=== PATIENT | female | born 1945 | race Caucasian/White ===

== ENCOUNTER 2016-09-12 14:42 | Emergency (ER) | payer OTHER | END 2016-09-12 14:59 | disposition left against medical advice (07) | LOC: CED 14:42 | DX: R06.02 Shortness of breath (principal); Z98.890 Other specified postprocedural states; Z53.29 Procedure and treatment not carried out because of patient's decision for other reasons ==

== ENCOUNTER 2016-09-12 15:18 | Emergency (ER) | payer OTHER ==
--- NOTE | 2016-09-12 15:51 | EDPHY ---
H & P Stated Complaint: S/P "heart surgery", SOB, cough Time Seen by Provider: 09/12/16 15:50 HPI/ROS: CHIEF COMPLAINT: Productive cough HISTORY OF PRESENT ILLNESS: The patient presents to the emergency department with a productive cough. Her symptoms have been present for 3 days. She reports an associated sore throat but denies fever. The patient is approximately 4 weeks status post CABG. She has been recovering well. She is currently on a daily aspirin. She denies chest pain. She is on chronic oxygen at 1 liter/minute. She has had to titrate this up slightly over the past day. The patient denies asymmetric calf pain or swelling. She denies abdominal pain or additional complaints. REVIEW OF SYSTEMS: A comprehensive 10 point review of systems is otherwise negative aside from elements mentioned in the history of present illness. - Personal History Current Tetanus/Diphtheria Vaccine: Yes Current Tetanus Diphtheria and Acellular Pertussis (TDAP): Yes - Medical/Surgical History Hx Asthma: No Hx Chronic Respiratory Disease: No Hx Diabetes: No Hx Cardiac Disease: No Hx Renal Disease: No Hx Cirrhosis: No Hx Alcoholism: No Hx HIV/AIDS: No Hx Splenectomy or Spleen Trauma: No Other PMH: breast cancer, mastectomy, COPD, cardiac surgery 08/27 - Social History Smoking Status: Former smoker - Physical Exam Exam: General Appearance: Alert, slightly obese, no acute distress Eyes: Pupils equal and round no pallor or injection ENT, Mouth: Mucous membranes moist Respiratory: There are no retractions, crackles at left lung base which clear, sternotomy incision clean dry and intact Cardiovascular: Regular rate and rhythm Gastrointestinal: Abdomen is soft and nontender, no masses, bowel sounds normal Neurological: A&O, normal motor function, normal sensory exam, normal cranial nerves Skin: Warm and dry, no rashes Musculoskeletal: Neck is supple nontender Extremities: symmetrical, full range of motion Constitutional: Initial Vital Signs Heart Rate 98 09/12/16 15:34 Respiratory Rate 20 09/12/16 15:34 Blood Pressure 161/106 H 09/12/16 15:34 O2 Sat (%) 92 09/12/16 15:34 O2 Delivery Mode Nasal Cannula O2 (L/minute) 1 Allergies/Adverse Reactions: adhesive tape Allergy (Verified 08/11/16 07:06) cephalexin monohydrate [From Keflex] Allergy (Verified 08/11/16 07:05) levofloxacin [From Levaquin] Allergy (Verified 08/11/16 07:05) olmesartan Allergy (Verified 08/11/16 07:06) olmesartan medoxomil [From Benicar] Allergy (Verified 08/11/16 12:13) oxycodone HCl [From Percocet] Allergy (Verified 08/11/16 07:05) Zmnhnko-Gef-Jml Reductase Inhibitor Allergy (Verified 08/11/16 12:16) Home Medications: Medication Instructions Recorded Anastrozole [Arimidex 1 mg (*)] 1 mg PO DAILY 08/11/16 Aspirin EC [Aspirin EC 81 mg (*)] 81 mg PO DAILY 08/11/16 Cyanocobalamin [Vitamin B12 (*)] 5,000 mcg PO DAILY 08/11/16 Denosumab [Prolia] 60 mg SQ Q180D 08/11/16 Fluticasone Nasal [Flonase Nasal 1 sprays NASAL DAILY 08/11/16 [place]] Fluticasone/Salmeter 250/50Mcg 1 puffs IH BID 08/11/16 [Advair 250/50 (*)] Omeprazole 40 mg PO DAILY 08/11/16 Tiotropium [place] [Spiriva 5 mcg IH DAILY 08/11/16 Respimat] Venlafaxine HCl [Venlafaxine 37.5 mg PO DAILY 08/11/16 37.5MG (*)] Acetaminophen [Tylenol 325mg (*)] 650 mg PO Q4 PRN #0 tab 08/17/16 Clopidogrel Bisulfate [Plavix (*)] 75 mg PO DAILY #90 tab 08/17/16 Ferrous Sulfate [Ferrous Sulf 325 325 mg PO DAILY #15 tab 08/17/16 MG (*)] Metoprolol Tartrate [Lopressor 25 12.5 mg PO BID #30 tab 08/17/16 mg (*)] traMADol [Ultram 50 mg (*)] 50 mg PO Q6HRS PRN #40 tab 08/17/16 Medical Decision Making - Diagnostics Imaging: Chest x-ray AP lateral: Images reviewed by myself and discussed with radiologist, negative for focal infiltrate. ED Course/Re-evaluation: The patient presents to the ED with a 3 day history of cough. There is no evidence of an obvious pneumonia on her chest x-ray. She is afebrile well- appearing. The patient will be advised to use albuterol for possible bronchitis. She is instructed to return to the ED for the development of fever , worsening respiratory symptoms or other concerns. The patient is given a prescription for albuterol. I re-evaluated the patient at 5:00 p.m.. Her vital signs are stable she is in no acute distress. She is comfortable being discharged home. I have given her usual and customary return precautions. Differential Diagnosis: Differential diagnosis considered includes asthma, bronchitis, pneumonia, heart failure, pneumothorax Departure - Departure Disposition: Home, Routine, Self-Care Clinical Impression: Acute bronchitis Condition: Good Instructions: Acute Bronchitis (ED) Additional Instructions: 1. Please use albuterol up to every 4 hours as needed. 2. Your x-ray demonstrates no evidence of an obvious pneumonia. Please return to the ED for fever, worsening symptoms, difficulty breathing or other concerns.
--- NOTE | 2016-09-12 15:53 | CPEKG ---
Heart Rate: 82 RR Interval: 732 P-R Interval: 188 QRSD Interval: 84 QT Interval: 356 QTC Interval: 416 P [place]: 64 QRS [place]: 66 T Wave [place]: 77 EKG Severity - BORDERLINE ECG - EKG Impression: SINUS RHYTHM EKG Impression: BORDERLINE T ABNORMALITIES, ANT-LAT LEADS Electronically Signed By: Nicolás Gallardo 12-Sep-2016 15:56:40
--- NOTE | 2016-09-12 16:37 | DX ---
Chest, Two Views - September 12, 2016, at 1543 hours History: Shortness of breath, crackles. Comparison: August 24, 2016. Findings: Cardiac silhouette is within normal range. No pneumonia, congestive heart failure, pleura l effusion, or pneumothorax. Fracture median sternotomy wire. Atrial appendage clip. Mediastinal clip s. Slightly tortuous aorta. Right and left axillary and breast clips noted. Pleuroparenchymal scarrin g in the right middle lobe. Mild peribronchial thickening bilaterally. Resolution of previous left pl eural effusion. Impression: 1. Bronchitis. 2. Prior coronary artery bypass. 3. No focal pneumonia or residual pleural effusion.
[2016-09-12 17:01] VITALS: BP 119/86; PULSE 83; RESP 16; TEMP 98.1; O2SAT 99
== END 2016-09-12 17:00 | disposition home or self-care (01) ==
DX: J20.9 Acute bronchitis, unspecified (principal); J44.9 Chronic obstructive pulmonary disease, unspecified; Z85.3 Personal history of malignant neoplasm of breast; Z79.82 Long term (current) use of aspirin

== ENCOUNTER 2016-10-12 05:43 | Observation (INO) | payer OTHER ==
[2016-10-12] MEDS ORDERED: NS 1,000 ML IV ONE (06:00)
[2016-10-12] MEDS ORDERED: VANCOMYCIN PHARMACY TO DOSE MISC ONE (06:00)
[2016-10-12] MEDS ORDERED: LIDOCAINE 1% 5 ML SDV ID PRN (06:00)
[2016-10-12] MEDS ORDERED: VANCOMYCIN 1.25 GM in D5W 250 ML IV ONE (06:00)
[2016-10-12] MEDS ORDERED: BUPIVACAINE/EPI 0.25% 30 ML SDV ONE (07:00)
[2016-10-12 07:02] LABS: % IMMATURE GRANULYOCYTES 0.2 % (0.0-1.1); ABSOLUTE IMMATURE GRANULOCYTES 0.01 10^3/uL (0.00-0.10); ADD DIFF? NO; ADD MORPH? NO; ADD SCAN? NO; ATYPICAL LYMPHOCYTE FLAG 10 (0-99); FRAGMENT RBC FLAG 0 (0-99); HEMATOCRIT 36.3 % (38.0-47.0); HEMOGLOBIN 12.1 g/dL (12.6-16.3); LEFT SHIFT FLG 0 (0-99); LIPEMIA HEMOLYSIS FLAG 80 (0-99); MEAN CELL HEMOGLOBIN 33.5 pg (27.9-34.1); MEAN CELL HEMOGLOBIN CONCENTR. 33.3 g/dL (32.4-36.7); MEAN CELL VOLUME 100.6 fL (81.5-99.8); MEAN PLATELET VOLUME 10.5 fL (8.7-11.7); PLATELET CLUMPS FLAG 0 (0-99); PLATELET COUNT 154 10^3/uL (150-400); RED BLOOD CELL COUNT 3.61 10^6/uL (4.18-5.33); RED CELL DISTRIBUTION WIDTH 14.8 % (11.5-15.2)
[2016-10-12] MEDS ORDERED: SKIN ADHESIVE (DERMABOND) 1 EACH TP ONE (07:05)
[2016-10-12] MEDS ORDERED: MIDAZOLAM 2 MG/2 ML VIAL ONE (07:10)
[2016-10-12] MEDS ORDERED: DEXAMETHASONE 4 MG/ML VIAL ONE (07:10)
[2016-10-12] MEDS ORDERED: PROPOFOL 200 MG/20 ML VIAL ONE (07:11)
[2016-10-12] MEDS ORDERED: LIDOCAINE 2% 5 ML SDV ONE (07:11)
[2016-10-12] MEDS ORDERED: fentaNYL 100 MCG/2 ML INJ ONE ×2 (07:11→09:30)
[2016-10-12] MEDS ORDERED: ONDANSETRON 4 MG/2 ML VIAL ONE (07:11)
[2016-10-12] MEDS ORDERED: KETOROLAC 30 MG/1 ML SDV ONE (07:11)
[2016-10-12] MEDS ORDERED: VANCOMYCIN 1 GM/NS 250 ML BAG IV ONE (07:14)
[2016-10-12 07:19] LABS: ANION GAP 8 mEq/L (8-16); CARBON DIOXIDE 26 mEq/l (22-31); CHLORIDE 110 mEq/L (97-110); CREATININE 0.9 mg/dL (0.6-1.0); GLOMERULAR FILTRATION RATE > 60; GLUCOSE 112 mg/dL (70-100); POTASSIUM 4.9 mEq/L (3.5-5.2); SODIUM 144 mEq/L (134-144)
[2016-10-12] MEDS ORDERED: epHEDrine SULFATE 10 MG/ML SYR ONE ×2 (08:09)
[2016-10-12] MEDS ORDERED: PHENYLEPHRINE HCL 100 MCG/ML SYR ONE (08:15)
[2016-10-12] MEDS ORDERED: ONDANSETRON 4 MG/2 ML VIAL IVP PRN (09:08)
[2016-10-12] MEDS ORDERED: LACTULOSE 20 GM/30 ML UDCUP PO PRN (09:08)
[2016-10-12] MEDS ORDERED: POLYETHYLENE GLYCOL 3350 17 GM PKT PO PRN (09:08)
[2016-10-12] MEDS ORDERED: SENNOSIDES/DOCUSATE SODIUM TAB PO PRN (09:08)
[2016-10-12] MEDS ORDERED: MAGNESIUM HYDROXIDE 30 ML UDCUP PO PRN (09:08)
[2016-10-12] MEDS ORDERED: ACETAMINOPHEN 325 MG TAB PO PRN ×2 (09:08→13:17)
[2016-10-12] MEDS ORDERED: BISACODYL 10 MG SUPP PR PRN (09:08)
[2016-10-12] MEDS ORDERED: KETOROLAC 15 MG/1 ML SDV IVP PRN (09:15)
[2016-10-12] MEDS ORDERED: ALBUTEROL 3 ML DEYVIAL IH PRN (09:18)
[2016-10-12] MEDS ORDERED: HYDROmorphONE/DILAUDID 1 MG/ML SYR ONE (10:20)
[2016-10-12] MEDS: traMADol 50 MG TAB PO PRN ×3 (13:14→22:13)
[2016-10-12] MEDS ORDERED: NON-FORMULARY NEW DRUG (Albuterol 2 PUFFS) IH PRN (13:17)
[2016-10-12] MEDS ORDERED: ALBUTEROL 60 PUFFS/8 GM MDI IH PRN (13:27)
[2016-10-12] MEDS: METOPROLOL TARTRATE 25 MG TAB PO SCH (21:04)
[2016-10-12] MEDS: FLUTICASONE/SALMETER 250/50MCG DISKUS IH SCH (21:08)
[2016-10-13 05:12] LABS: % IMMATURE GRANULYOCYTES 0.3 % (0.0-1.1); ABSOLUTE IMMATURE GRANULOCYTES 0.02 10^3/uL (0.00-0.10); ADD DIFF? NO; ADD MORPH? NO; ADD SCAN? NO; ATYPICAL LYMPHOCYTE FLAG 0 (0-99); FRAGMENT RBC FLAG 0 (0-99); HEMATOCRIT 32.7 % (38.0-47.0); HEMOGLOBIN 10.5 g/dL (12.6-16.3); LEFT SHIFT FLG 0 (0-99); LIPEMIA HEMOLYSIS FLAG 80 (0-99); MEAN CELL HEMOGLOBIN 32.6 pg (27.9-34.1); MEAN CELL HEMOGLOBIN CONCENTR. 32.1 g/dL (32.4-36.7); MEAN CELL VOLUME 101.6 fL (81.5-99.8); MEAN PLATELET VOLUME 11.1 fL (8.7-11.7); PLATELET CLUMPS FLAG 10 (0-99); PLATELET COUNT 159 10^3/uL (150-400); RED BLOOD CELL COUNT 3.22 10^6/uL (4.18-5.33)
[2016-10-13 07:51] VITALS: TEMP 98
[2016-10-13] MEDS: FLUTICASONE/SALMETER 250/50MCG DISKUS IH SCH (08:42)
[2016-10-13] MEDS ORDERED: FLUTICASONE NASAL 120 SPRAYS/16 GM MDI EACHNARE SCH (09:00)
[2016-10-13] MEDS ORDERED: VENLAFAXINE HCL 37.5 MG TAB PO SCH (09:00)
[2016-10-13] MEDS ORDERED: TIOTROPIUM BROMIDE 5 MCG IH SCH (09:00)
[2016-10-13] MEDS ORDERED: PANTOPRAZOLE SODIUM 40 MG TAB PO SCH (09:00)
[2016-10-13] MEDS ORDERED: amLODIPine BESYLATE 5 MG TAB PO SCH (09:00)
[2016-10-13] MEDS ORDERED: TIOTROPIUM INHALER 18 MCG/DOSE 5 DOSE/MDI IH SCH (09:00)
[2016-10-13] MEDS ORDERED: ASPIRIN EC 81 MG TAB PO SCH (09:00)
[2016-10-13] MEDS ORDERED: ANASTROZOLE 1 MG TAB PO SCH (09:00)
[2016-10-13] MEDS ORDERED: CYANO/VITAMIN B12 1000 MCG TAB PO SCH (09:00)
[2016-10-13] MEDS ORDERED: FUROSEMIDE 20 MG TAB PO SCH (09:00)
[2016-10-13] MEDS: traMADol 50 MG TAB PO PRN ×2 (09:06→13:17)
[2016-10-13] MEDS: METOPROLOL TARTRATE 25 MG TAB PO SCH (09:15)
--- NOTE | 2016-10-13 10:00 | SOAPPROG ---
SOAP Progress Note Assessment/Plan: Assessment: POD#1 Upper sternal wound exploration with removal of fractured sternal wire and ZipFix ties x 2, debridement of manubrial malunion, mobilization of bilateral pecs into defect and closure of wound. Upper sternal soft tissue irritation and inflammation with known wire fx - No sinus tracts or evidence infection. Fibrous nonunion d/t fractured wire. Localized hardware removed and wound successfully closed. Stable CAD - 2 mo s/p CABG4. COPD - stable. MONIQUE on CPAP - stable. Plan: Ok for discharge home with drain. Reinstitute strict sternal precautions. Close clinic followup. 10/13/16 07:54 Subjective: Feels well. Satisfactory analgesia. Comfortable managing drain as did same post mastectomy. Objective: Vital Signs Temp Pulse Resp BP Pulse Ox 36.7 C 87 12 107/65 97 10/13/16 07:50 10/13/16 08:44 10/13/16 08:44 10/13/16 07:50 10/13/16 08:44 Microbiology 10/12/16 07:50 Gram Stain - Final Other - Eswab Laboratory Results 10/13/16 03:25 10/12/16 07:52 10/12/16 10/13/16 10/14/16 05:59 05:59 05:59 Intake Total 2235 Output Total 635 Balance 1600 Cardioresp status stable. Flap drainage thin serosang. Output 50cc postop, 70cc overnoc. Intraop cx NOS. Labs ok. Physical Exam - Physical Exam General Appearance: alert, no apparent distress Respiratory: lungs clear Cardiac/Chest: regular rate, rhythm, other (Sternal dressing clean and dry. Incision visualized - small hematoma at notch, edges well approximated, periwound soft, flat. 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
[2016-10-13 11:42] VITALS: BP 102/63; PULSE 88; RESP 16; O2SAT 91
== END 2016-10-13 14:48 | disposition home or self-care (01) ==
LOC: INTOOBSV 05:43 → F3N 05:43 → F2W 10:40
PROVIDERS: ADMIT Thoracic Surgery (Cardiothoracic Vascular Surgery); ATTEND Thoracic Surgery (Cardiothoracic Vascular Surgery)
PROC: 0PP004Z Removal of Internal Fixation Device from Sternum, Open Approach (ICD-10-PCS; principal; 2016-10-12 07:15)
PROC: 0PB00ZZ Excision of Sternum, Open Approach (ICD-10-PCS; principal; 2016-10-12 07:15)
PROC: 0KXJ0ZZ Transfer Left Thorax Muscle, Open Approach (ICD-10-PCS; principal; 2016-10-12 07:15)
PROC: 0KXH0ZZ Transfer Right Thorax Muscle, Open Approach (ICD-10-PCS; principal; 2016-10-12 07:15)
DX: T84.218A Breakdown (mechanical) of internal fixation device of other bones, initial encounter (principal); T84.69XA Infection and inflammatory reaction due to internal fixation device of other site, initial encounter; I25.10 Atherosclerotic heart disease of native coronary artery without angina pectoris; Z95.1 Presence of aortocoronary bypass graft; J44.9 Chronic obstructive pulmonary disease, unspecified; G47.33 Obstructive sleep apnea (adult) (pediatric)
CPT/HCPCS: 11044; 15734; 20680; J1100; J1170; J2250; J2370; J2405; J2704; J3010; J3370; J1885

== ENCOUNTER 2016-10-26 16:58 | Inpatient (IN) | payer OTHER ==
[2016-10-26] MEDS ORDERED: MAGNESIUM HYDROXIDE 30 ML UDCUP PO PRN (18:43)
[2016-10-26] MEDS ORDERED: HYDROCODONE/APAP 5/325 TAB PO PRN (18:43)
[2016-10-26] MEDS ORDERED: BISACODYL 10 MG SUPP PR PRN (18:43)
[2016-10-26] MEDS ORDERED: LACTULOSE 20 GM/30 ML UDCUP PO PRN (18:43)
[2016-10-26] MEDS ORDERED: POLYETHYLENE GLYCOL 3350 17 GM PKT PO PRN (18:43)
[2016-10-26] MEDS ORDERED: ACETAMINOPHEN 325 MG TAB PO PRN (18:43)
--- NOTE | 2016-10-26 19:32 | PDGENHP ---
History and Physical - Chief Complaint increasing sternal redness and tenderness x 48hrs - History of Present Illness 70 yo female admitted directly from CV surgery clinic with cellulitis and expressible purulent drainage from an upper sternal wound that was revised 2 wks ago. Describes flu-like fatigue, achiness, and chilled feeling last couple of days, associated with spreading redness, fullness and tenderness along upper chest near deltopectoral grooves. Onset of symptoms within 2 days of drain hole sealing. No skin edge disruption or spontaneous drainage from central incision. No documented fever. No new bony popping/clicking. No mid/distal sternal ache. Adequate pain control with tylenol and tramadol. History Information - Allergies/Home Medication List Allergies/Adverse Reactions: adhesive tape Allergy (Verified 08/11/16 07:06) cephalexin monohydrate [From Keflex] Allergy (Verified 10/11/16 18:01) Rash levofloxacin [From Levaquin] Allergy (Verified 10/11/16 18:01) Rash olmesartan Allergy (Verified 10/11/16 18:01) Rash olmesartan medoxomil [From Benicar] Allergy (Verified 10/11/16 18:01) Rash oxycodone HCl [From Percocet] Allergy (Verified 10/11/16 18:01) Vomiting Ephqkql-Ixb-Mjq Reductase Inhibitor Allergy (Verified 10/11/16 18:01) Other-Enter Comments Home Medications: Anastrozole [Arimidex 1 mg (*)] 1 mg PO DAILY 08/11/16 [Last Taken 10/26/16] Aspirin EC [Aspirin EC 81 mg (*)] 81 mg PO DAILY 08/11/16 [Last Taken 10/26/16] Cyanocobalamin [Vitamin B12 (*)] 5,000 mcg PO DAILY 08/11/16 [Last Taken ] Denosumab [Prolia] 60 mg SQ Q180D 08/11/16 [Last Taken 07/28/16] Fluticasone Nasal [Flonase Nasal [place]] 1 sprays NASAL DAILY 08/11/16 [Last Taken 10/24/16] Fluticasone/Salmeter 250/50Mcg [Advair 250/50 (*)] 1 puffs IH BID 08/11/16 [ Last Taken 10/26/16] Omeprazole 40 mg PO DAILY 08/11/16 [Last Taken 10/26/16] Tiotropium [place] [Spiriva Respimat] 5 mcg IH DAILY 08/11/16 [Last Taken ] Amlodipine Besylate 5 mg PO DAILY 10/12/16 [Last Taken 10/26/16] Furosemide [Lasix 20 MG (*)] 20 mg PO MOWEFR@09 10/12/16 [Last Taken 10/25/16] Alirocumab [Praluent Syringe] 75 mg SQ Q14D 10/26/16 [Last Taken 10/25/16] Venlafaxine HCl [Venlafaxine HCl ER] 37.5 mg PO DAILY 10/26/16 [Last Taken 10/25] I have personally reviewed and updated: medical history, social history, surgical history - Past Medical History coronary artery disease, cancer (breast, s/p chemo and left sided XRT), COPD ( 40 pk yr smoking hx; O2 dependent since CABG), hypertension, hyperlipidemia, peripheral artery disease (4 cm AAA, mild-mod carotid atherosclerosis) Additional medical history: MONIQUE, on CPAP. LV diastolic dysfunction. pHTN - Surgical History Reports: coronary bypass surgery (x4, CANTRELL-LAD, SV-D1, SV-PLC, SV-PDA) w prophylactic AtriClip exclusion of the left atrial appendage 08/12/16), mastectomy (bilateral with failed augmentation/implants) Additional surgical history: -10/12/15 upper sternal exploration, removal of fractured wire and ZipFix ties x2, debridement of manubrial fibrous nonunion, mobilization of bilateral pecs into defect, closure of wound. No evidence infection. Intraop cxs rare mixed cutaneous marie; no staph, beta strep or pseudomonas. Not placed on antibiotics. -remote rt nephrectomy - Social History Smoking Status: Former smoker Review of Systems Constitutional: Reports: chills, malaise, weakness EENMT: Reports: no symptoms Cardiac: Reports: no symptoms Respiratory: Reports: shortness of breath (with mild exertion) Gastrointestinal: Reports: no symptoms Genitourinary: Reports: no symptoms Muscolosketal: Reports: muscle pain (generalized) Physical Exam Temp Pulse Resp BP Pulse Ox 37.1 C 129 H 20 131/82 H 91 L 10/26/16 18:20 10/26/16 18:20 10/26/16 18:20 10/26/16 18:20 10/26/16 18:20 O2 (L/minute) 2 Constitutional: other (pale) Eyes: anicteric sclera Ears, Nose, Mouth, Throat: moist mucous membranes Cardiovascular: regular rate and rhythym, no murmur, rub, or gallop, other (no visible peripheral edema) Respiratory: no respiratory distress (at rest), clear to auscultation (grossly) Gastrointestinal: normoactive bowel sounds, soft, non-tender abdomen Skin: warm, other (Upper sternal incision CDI with 1/4 cm pustular appearance to central incision. Widespread cellulitis to midclavicular line. Exquisitely TTP along upper pecs. Rt sided parasternal drain site dry, no active drainage.) Musculoskeletal: other (symmetric tone and movement) Neurologic: AAOx3 Psychiatric: interacting appropriately Lab Data & Imaging Review 10/26/16 19:45 10/26/16 19:45 Assessment & Plan Assessment: Surgical site cellulitis. Devascularized subcutaneous tissue w probable compromise of pectoralis flaps. Possible osteomyelitis. Plan: Routine labs, as well as blood cultures. Local I&D +/- culturing of central wound. Empiric Vancomycin pending further results. Re-exploration of entire wound in OR tomorrow. PICC and wound vac if appropriate. Plastics consult for additional debridement, defect management.
[2016-10-26] MEDS: traMADol 50 MG TAB PO PRN ×2 (19:53→22:59)
[2016-10-26] MEDS ORDERED: VANCOMYCIN HCL/NORMAL SALINE 250 ML IV ONE (20:00)
[2016-10-26 20:12] LABS: % IMMATURE GRANULYOCYTES 1.2 % (0.0-1.1); ABSOLUTE IMMATURE GRANULOCYTES 0.18 10^3/uL (0.00-0.10); ADD DIFF? NO; ADD MORPH? NO; ADD SCAN? NO; ATYPICAL LYMPHOCYTE FLAG 0 (0-99); FRAGMENT RBC FLAG 0 (0-99); HEMATOCRIT 35.2 % (38.0-47.0); HEMOGLOBIN 11.8 g/dL (12.6-16.3); LEFT SHIFT FLG 10 (0-99); LIPEMIA HEMOLYSIS FLAG 80 (0-99); MEAN CELL HEMOGLOBIN 33.3 pg (27.9-34.1); MEAN CELL HEMOGLOBIN CONCENTR. 33.5 g/dL (32.4-36.7); MEAN CELL VOLUME 99.4 fL (81.5-99.8); MEAN PLATELET VOLUME 10.4 fL (8.7-11.7); PLATELET CLUMPS FLAG 20 (0-99); PLATELET COUNT 262 10^3/uL (150-400); RED BLOOD CELL COUNT 3.54 10^6/uL (4.18-5.33); RED CELL DISTRIBUTION WIDTH 14.9 % (11.5-15.2)
[2016-10-26] MEDS ORDERED: ALBUTEROL 60 PUFFS/8 GM MDI IH PRN (20:30)
[2016-10-26 20:37] LABS: ANION GAP 14 mEq/L (8-16); CALCIUM 8.9 mg/dL (8.5-10.4); CARBON DIOXIDE 23 mEq/l (22-31); CHLORIDE 97 mEq/L (97-110); CREATININE 1.8 mg/dL (0.6-1.0); GLOMERULAR FILTRATION RATE 28; GLUCOSE 110 mg/dL (70-100); POTASSIUM 4.4 mEq/L (3.5-5.2); SODIUM 134 mEq/L (134-144)
[2016-10-26] MEDS: FLUTICASONE/SALMETER 250/50MCG DISKUS IH SCH (20:50)
[2016-10-26] MEDS: HEPARIN 5,000 UNIT/0.5 ML SYR SC SCH (20:53)
[2016-10-26] MEDS: METOPROLOL TARTRATE 25 MG TAB PO SCH (20:54)
[2016-10-26] MEDS: SENNOSIDES/DOCUSATE SODIUM TAB PO SCH (20:57)
[2016-10-26] MEDS: 1/2 NS 1,000 ML IV SCH (22:59)
[2016-10-27] MEDS: traMADol 50 MG TAB PO PRN ×4 (04:19→22:05)
[2016-10-27 05:15] LABS: ANION GAP 11 mEq/L (8-16); CALCIUM 8.6 mg/dL (8.5-10.4); CARBON DIOXIDE 22 mEq/l (22-31); CHLORIDE 99 mEq/L (97-110); CREATININE 1.7 mg/dL (0.6-1.0); GLOMERULAR FILTRATION RATE 30; GLUCOSE 97 mg/dL (70-100); POTASSIUM 3.8 mEq/L (3.5-5.2); SODIUM 132 mEq/L (134-144)
[2016-10-27] MEDS: HEPARIN 5,000 UNIT/0.5 ML SYR SC SCH ×3 (06:25→22:07)
[2016-10-27] MEDS: METOPROLOL TARTRATE 25 MG TAB PO SCH ×2 (07:42→20:05)
[2016-10-27] MEDS ORDERED: ALTEPLASE 2 MG VIAL IVP PRN (09:23)
[2016-10-27] MEDS ORDERED: VANCOMYCIN HCL/NORMAL SALINE 250 ML IV SCH (10:30)
--- NOTE | 2016-10-27 10:30 | SOAPPROG ---
SOAP Progress Note Assessment/Plan: Assessment: Upper sternal cellulitis - Associated with subcutaneous abscess. Active drainage promoted by local I&D. Gram stain 2+GPC. Precautionary blood cxs sent and pending. Empiric IV Vanco pending more definitive intraop cultures. CT chest to better define extent of needed revision. Removal of bilateral breast implants desired. Plastics consult planned. ASTRID - Baseline Cr Admit Cr 0.8-1.0. Admit Cr 1.8, likely prerenal (relative dehydration and hypotension) secondary to infection. IVF started. Diuretics held. Plan: Noncontrast chest CT. PICC. Keep NPO pending possible OR this afternoon. IV vanco dosing per pharm. Cont IVF at 100ml/h. Await plastics opinion. 10/27/16 09:24 Subjective: Doing ok. Maintaining good spirits. "Much less tender" since "pressure" released by I&D. Objective: Vital Signs Temp Pulse Resp BP Pulse Ox 37.9 C 106 H 18 100/65 94 10/27/16 07:32 10/27/16 07:32 10/27/16 07:32 10/27/16 07:32 10/27/16 07:32 Microbiology 10/26/16 20:00 Gram Stain - Final Chest - Swab Laboratory Results 10/26/16 19:45 10/27/16 03:44 10/26/16 10/27/16 10/28/16 05:59 05:59 05:59 Intake Total 300 Balance 300 Resting tachycardia w/out overt hypotension, likely reactive. Low grade temp this am. Purosanguinous drainage from opening in chest incision. Markedly less erythema and induration. Gram stain of cx +GPC. Blood cxs pending. Physical Exam - Physical Exam General Appearance: alert, no apparent distress Respiratory: lungs clear Cardiac/Chest: tachycardia, other (Significant reduction in chest cellulitis. Brown purosanguinous drainage from 2cm central opening. 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
[2016-10-27] MEDS: 1/2 NS 1,000 ML IV SCH ×2 (10:52→20:14)
[2016-10-27] MEDS: SENNOSIDES/DOCUSATE SODIUM TAB PO SCH ×2 (10:53→20:06)
[2016-10-27] MEDS: TIOTROPIUM BROMIDE 5 MCG IH SCH (10:54)
[2016-10-27] MEDS: FLUTICASONE/SALMETER 250/50MCG DISKUS IH SCH ×2 (10:54→22:00)
--- NOTE | 2016-10-27 18:15 | SOAPPROG ---
SOAP Progress Note Assessment/Plan: Assessment: Sternal wound infection with likely involvement of one or both reconstructive breast implants Plan: Agree with operative exploration and debridement, continued iv abx, and implant removal. Will plan definitive coverage when infection is under control and the wound is stable. Full note dictated. 10/27/16 18:12 Subjective: sternal wound infection symptomatically better after wound opening Objective: Vital Signs Temp Pulse Resp BP Pulse Ox 36.6 C 127 H 20 107/76 95 10/27/16 16:48 10/27/16 16:48 10/27/16 16:48 10/27/16 16:48 10/27/16 16:48 Microbiology 10/26/16 20:30 Blood Panel (PCR) - Final Blood S.aureus Methicillin Suscept. 10/26/16 20:00 Gram Stain - Final Chest - Swab Laboratory Results 10/26/16 19:45 10/27/16 03:44 10/26/16 10/27/16 10/28/16 05:59 05:59 05:59 Intake Total 300 1880 Balance 300 1880 open superior sternotomy wound with purulent drainage ICD10 Worksheet Patient Problems: Problems Problem Status Onset ASTRID (acute kidney injury) Acute Cellulitis Acute FH: CABG (coronary artery bypass surgery) Chronic S/P CABG x 4 Chronic 08/12/16 COPD (chronic obstructive pulmonary disease) Chronic History of nephrectomy, unilateral Chronic History of mastectomy Chronic Breast cancer Chronic Hypertension Chronic Hyperlipemia Chronic CAD, multiple vessel Chronic Carotid artery disease Chronic MONIQUE on CPAP 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
--- NOTE | 2016-10-27 19:09 | GCON ---
[f rep st] CONSULTATION PLASTIC SURGERY CONSULTATION NOTE DATE OF CONSULTATION: 10/27/2016 REFERRING PHYSICIAN: Joe Villaseñor DO REQUESTING SERVICE: Cardiovascular Surgery. CONSULTING SERVICE: Plastic Surgery. REASON FOR CONSULTATION: Sternal dehiscence with infection, status post CABG. CLINICAL HISTORY: I spoke with the patient at great length this evening. She is a delightful 70-ye ar-old female admitted yesterday from the [facility] with cellulitis and abscess in the upper portion of the median sternotomy incision. She has a history of 4-vessel CABG in late Novemb er. She had the wound revised several weeks ago and developed redness and constitutional symptoms w ithin the last 3-4 days. She was admitted yesterday and was begun empirically on IV antibiotics. S he had a CT scan which revealed involvement of the mediastinum with possible involvement and contami nation of her breast implants. The implants were placed as part of reconstruction following bilater al mastectomy in 2011. She has never done well with the implants. She had partial mobilization of pectoralis major muscle during sternal revision several weeks ago. There is now likely involvement of the implant space with the sternal infection. Plastic Surgery was consulted to assist in wound c are and wound closure once the infection is under control. PAST MEDICAL HISTORY: Significant for significant coronary artery disease, oxygen-dependent COPD, h ypertension, peripheral artery disease, high cholesterol, and obstructive sleep apnea. She has had multiple previous surgeries, including bilateral mastectomy with implant reconstruction, 4-vessel CA BG as above, unilateral nephrectomy, appendectomy, hysterectomy. SOCIAL HISTORY: She has a 40 pack-year history of smoking, but quit in 2011. PHYSICAL EXAMINATION: GENERAL: She is a mildly acute-appearing, moderately obese white female, res ting comfortably in bed. She has oxygen in place and a dressing over an open, draining superior annie rnal wound. SKIN: There is erythema in an 8 cm x 10 cm distribution with cloudy drainage from the superior aspect of the incision. There are implants in place bilaterally with transverse mastectomy incisions. The remainder of the sternotomy incision is intact. No drains are in place. There is tenderness to palpation of the chest wall. LABORATORY DATA: Admission lab data revealed an elevated white count of 15,000. IMPRESSION: The patient has an open sternal defect with a sternal malunion with abscess and likely spread to one or both breast implant capsules. PLAN: The patient will need to have her wound widely opened and explored with debridement of the st ernal edges back to healthy, bleeding bone. She will likely need removal of both implants with seri al dressing changes in conjunction with IV antibiotics to control the infection. Once the tissues a re healthy and granulating and the infection is under control, I would plan to reconstruct the defec t with either a right vertical rectus abdominis myocutaneous flap or potentially use bilateral pecto ralis major flaps, if they are intact and there is no vascular compromise. I do not anticipate that the wound will be ready for closure before the middle of next week. I will be available to discuss the case with Dr. Villaseñor and will try to obtain intraoperative photographs of the current wound defe ct at the time of debridement. Thank you for the consultation and the ability to help in this kind woman's care. /[id number]/MODL
[2016-10-27] MEDS: VANCOMYCIN 750 MG in D5W 150 ML IV SCH (20:07)
[2016-10-27] MEDS: FLUTICASONE NASAL 120 SPRAYS/16 GM MDI EACHNARE SCH (22:08)
[2016-10-28] MEDS: 1/2 NS 1,000 ML IV SCH (06:05)
[2016-10-28 06:11] LABS: % IMMATURE GRANULYOCYTES 0.5 % (0.0-1.1); ABSOLUTE IMMATURE GRANULOCYTES 0.03 10^3/uL (0.00-0.10); ADD DIFF? NO; ADD MORPH? NO; ADD SCAN? NO; ATYPICAL LYMPHOCYTE FLAG 0 (0-99); FRAGMENT RBC FLAG 0 (0-99); HEMATOCRIT 27.2 % (38.0-47.0); HEMOGLOBIN 8.9 g/dL (12.6-16.3); LEFT SHIFT FLG 0 (0-99); LIPEMIA HEMOLYSIS FLAG 80 (0-99); MEAN CELL HEMOGLOBIN 33.1 pg (27.9-34.1); MEAN CELL HEMOGLOBIN CONCENTR. 32.7 g/dL (32.4-36.7); MEAN CELL VOLUME 101.1 fL (81.5-99.8); MEAN PLATELET VOLUME 10.2 fL (8.7-11.7); PLATELET CLUMPS FLAG 0 (0-99); PLATELET COUNT 178 10^3/uL (150-400); RED BLOOD CELL COUNT 2.69 10^6/uL (4.18-5.33); RED CELL DISTRIBUTION WIDTH 14.9 % (11.5-15.2)
[2016-10-28 06:43] LABS: ALANINE AMINOTRANSFERASE 59 IU/L (9-52); ALBUMIN 2.3 g/dL (3.5-5.0); ALKALINE PHOSPHATASE 352 IU/L (38-126); ANION GAP 8 mEq/L (8-16); ASPARTATE AMINOTRANSFERASE 75 IU/L (14-46); CALCIUM 7.8 mg/dL (8.5-10.4); CARBON DIOXIDE 22 mEq/l (22-31); CHLORIDE 101 mEq/L (97-110); CREATININE 1.8 mg/dL (0.6-1.0); GLOMERULAR FILTRATION RATE 28; GLUCOSE 70 mg/dL (70-100); POTASSIUM 3.8 mEq/L (3.5-5.2); SODIUM 131 mEq/L (134-144); TOTAL PROTEIN 4.7 g/dL (6.3-8.2)
[2016-10-28] MEDS: VENLAFAXINE XR 37.5 MG CAP PO SCH (07:28)
[2016-10-28] MEDS: traMADol 50 MG TAB PO PRN ×4 (07:28→22:26)
[2016-10-28] MEDS: METOPROLOL TARTRATE 25 MG TAB PO SCH ×2 (07:28→22:25)
[2016-10-28] MEDS: NS 1,000 ML IV SCH ×2 (07:37→20:48)
[2016-10-28] MEDS: HEPARIN 5,000 UNIT/0.5 ML SYR SC SCH ×3 (08:15→21:49)
[2016-10-28] MEDS: ANASTROZOLE 1 MG TAB PO SCH (08:16)
[2016-10-28] MEDS: ASPIRIN EC 81 MG TAB PO SCH (08:16)
[2016-10-28] MEDS: SENNOSIDES/DOCUSATE SODIUM TAB PO SCH ×2 (08:16→22:27)
[2016-10-28] MEDS: FLUTICASONE/SALMETER 250/50MCG DISKUS IH SCH ×2 (08:17→20:32)
[2016-10-28] MEDS: FLUTICASONE NASAL 120 SPRAYS/16 GM MDI EACHNARE SCH (08:17)
[2016-10-28] MEDS: TIOTROPIUM BROMIDE 5 MCG IH SCH ×2 (08:17→20:32)
[2016-10-28] MEDS ORDERED: CYANO/VITAMIN B12 1000 MCG TAB PO SCH (09:00)
[2016-10-28] MEDS ORDERED: PANTOPRAZOLE SODIUM 40 MG TAB PO SCH (09:00)
--- NOTE | 2016-10-28 09:40 | SOAPPROG ---
SOAP Progress Note Assessment/Plan: Upper sternal cellulitis - Associated with subcutaneous abscess. Active drainage promoted by local I&D. MSSA as per micro. Continue Vanco. Plastics consult appreciated and plan is to reconstruct after resolution of infection. Dr. Villaseñor to debride wound and remove breast implants 10/29. ASTRID - Baseline Cr Admit Cr 0.8-1.0. Admit Cr 1.8, likely prerenal (relative dehydration and hypotension) secondary to infection. IVF started. Diuretics held. Subjective: Still c/o chest pain. Wound continues to drain. Objective: Vital Signs Temp Pulse Resp BP Pulse Ox 36.7 C 83 18 105/60 99 10/28/16 08:40 10/28/16 08:40 10/28/16 08:40 10/28/16 08:40 10/28/16 08:40 Microbiology 10/26/16 20:00 Gram Stain - Final Chest - Swab 10/26/16 20:30 Blood Panel (PCR) - Final Blood S.aureus Methicillin Suscept. Laboratory Results 10/28/16 06:00 10/28/16 06:00 10/27/16 10/28/16 10/29/16 05:59 05:59 05:59 Intake Total 300 3380 Balance 300 3380 Physical Exam - Physical Exam General Appearance: WD/WN, alert, no apparent distress EENT: No scleral icterus (R), No scleral icterus (L) Neck: normal inspection Respiratory: No respiratory distress Cardiac/Chest: regular rate, rhythm Abdomen: non-tender, soft, No distended Skin: other (Chest erythema with purulent drainage from mid-portion of wound. TTP. 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
[2016-10-28] MEDS: ONDANSETRON 4 MG/2 ML VIAL IVP PRN (16:05)
[2016-10-28] MEDS: VANCOMYCIN 750 MG in D5W 150 ML IV SCH (20:47)
[2016-10-29] MEDS: HEPARIN 5,000 UNIT/0.5 ML SYR SC SCH ×3 (05:33→20:32)
[2016-10-29 05:59] LABS: HEMATOCRIT 26.1 % (38.0-47.0); HEMOGLOBIN 8.4 g/dL (12.6-16.3); MEAN CELL HEMOGLOBIN 32.3 pg (27.9-34.1); MEAN CELL HEMOGLOBIN CONCENTR. 32.2 g/dL (32.4-36.7); MEAN CELL VOLUME 100.4 fL (81.5-99.8); RED BLOOD CELL COUNT 2.6 10^6/uL (4.18-5.33)
[2016-10-29 07:35] LABS: ANION GAP 8 mEq/L (8-16); CALCIUM 8.5 mg/dL (8.5-10.4); CARBON DIOXIDE 22 mEq/l (22-31); CHLORIDE 104 mEq/L (97-110); CREATININE 1.8 mg/dL (0.6-1.0); GLOMERULAR FILTRATION RATE 28; GLUCOSE 89 mg/dL (70-100); POTASSIUM 4.2 mEq/L (3.5-5.2); SODIUM 134 mEq/L (134-144)
[2016-10-29] MEDS: METOPROLOL TARTRATE 25 MG TAB PO SCH ×2 (08:09→20:30)
[2016-10-29] MEDS: CYANO/VITAMIN B12 1000 MCG TAB PO SCH (08:11)
[2016-10-29] MEDS: ANASTROZOLE 1 MG TAB PO SCH (08:11)
[2016-10-29] MEDS: traMADol 50 MG TAB PO PRN ×2 (08:13→20:31)
[2016-10-29] MEDS: OMEPRAZOLE 40MG PO SCH (08:14)
[2016-10-29] MEDS: ASPIRIN EC 81 MG TAB PO SCH (08:14)
[2016-10-29] MEDS: SENNOSIDES/DOCUSATE SODIUM TAB PO SCH ×2 (08:17→20:31)
[2016-10-29] MEDS: NS 1,000 ML IV SCH (08:28)
[2016-10-29] MEDS: VENLAFAXINE XR 37.5 MG CAP PO SCH (08:48)
[2016-10-29] MEDS ORDERED: FUROSEMIDE 20 MG TAB PO SCH (09:00)
[2016-10-29] MEDS: FLUTICASONE/SALMETER 250/50MCG DISKUS IH SCH ×2 (09:08→19:42)
[2016-10-29] MEDS: TIOTROPIUM BROMIDE 5 MCG IH SCH (09:08)
[2016-10-29] MEDS: FLUTICASONE NASAL 120 SPRAYS/16 GM MDI EACHNARE SCH (10:41)
[2016-10-29] MEDS ORDERED: MIDAZOLAM 2 MG/2 ML VIAL ONE (13:21)
[2016-10-29] MEDS ORDERED: PROPOFOL/EMULSION 500 MG/50 ML BOTTLE IV ONE (13:25)
[2016-10-29] MEDS ORDERED: fentaNYL 100 MCG/2 ML INJ ONE (13:26)
[2016-10-29] MEDS ORDERED: VANCOMYCIN 1 GM in NS 250 ML IV ONE (14:00)
[2016-10-29] MEDS ORDERED: LIDOCAINE 1% 30 ML SDV ONE (14:13)
[2016-10-29] MEDS ORDERED: BUPIVACAINE/EPI 0.25% 30 ML SDV ONE (14:14)
[2016-10-30] MEDS: traMADol 50 MG TAB PO PRN ×3 (02:45→22:42)
[2016-10-30] MEDS: HEPARIN 5,000 UNIT/0.5 ML SYR SC SCH ×3 (06:06→22:42)
[2016-10-30 06:39] LABS: HEMATOCRIT 24.8 % (38.0-47.0); HEMOGLOBIN 7.8 g/dL (12.6-16.3); MEAN CELL HEMOGLOBIN 32.5 pg (27.9-34.1); MEAN CELL HEMOGLOBIN CONCENTR. 31.5 g/dL (32.4-36.7); MEAN CELL VOLUME 103.3 fL (81.5-99.8); RED BLOOD CELL COUNT 2.4 10^6/uL (4.18-5.33)
[2016-10-30 06:57] LABS: ANION GAP 8 mEq/L (8-16); CALCIUM 8.4 mg/dL (8.5-10.4); CARBON DIOXIDE 20 mEq/l (22-31); CHLORIDE 108 mEq/L (97-110); CREATININE 1.7 mg/dL (0.6-1.0); GLOMERULAR FILTRATION RATE 30; GLUCOSE 86 mg/dL (70-100); POTASSIUM 4.5 mEq/L (3.5-5.2); SODIUM 136 mEq/L (134-144)
[2016-10-30] MEDS: TIOTROPIUM BROMIDE 5 MCG IH SCH (08:44)
[2016-10-30] MEDS: FLUTICASONE/SALMETER 250/50MCG DISKUS IH SCH ×2 (08:44→20:53)
[2016-10-30] MEDS: FLUTICASONE NASAL 120 SPRAYS/16 GM MDI EACHNARE SCH (12:33)
[2016-10-30] MEDS: SENNOSIDES/DOCUSATE SODIUM TAB PO SCH ×2 (12:34→22:43)
[2016-10-30] MEDS ORDERED: PROPOFOL 200 MG/20 ML VIAL ONE (12:49)
[2016-10-30] MEDS ORDERED: fentaNYL 100 MCG/2 ML INJ ONE ×2 (12:49→13:41)
--- NOTE | 2016-10-30 13:38 | POSTOPPROG ---
Post Op Note Date of Operation: 10/30/16 Surgeon: Joe Villaseñor Health And Nutrition Specialist: none Anesthesia: LMA Pre-op Diagnosis: L breast implant induration, r/o infectious involvement Procedure: explantation of L implant w drain Inf/Abcess present in the surg proc area at time of surgery?: Yes Depth: Superfical (Skin SQ) EBL: Minimal Drains: Other (1 marce)
--- NOTE | 2016-10-30 14:10 | GOP ---
[f rep st] OPERATIVE REPORT DATE OF OPERATION: 10/30/2016 SURGEON: Joe Villaseñor DO ANESTHESIOLOGIST: Darrius Chris. PREOPERATIVE DIAGNOSIS: Presumed involvement of left breast implant site with cellulitis. POSTOPERATIVE DIAGNOSIS: No obvious gross involvement; however, cultures were obtained. PROCEDURE PERFORMED: Explantation of left breast implant with drain placed and cultures. FINDINGS: DESCRIPTION OF PROCEDURE: Under monitored general anesthetic, the left chest was prepped and draped in sterile classical manner. Incision was placed through the old incision laterally near the axill a where the breast implant had been performed. Upon entering the cavity, there was no fluid althoug h cultures were obtained. The breast implant was explanted without difficulty. The cavity was cult ured. A single drain was placed through a separate stab wound incision. The wound was closed with vertical mattress sutures. Dressings were applied. The patient was returned to the recovery room i n stable condition. /[id number]/MODL
[2016-10-30] MEDS: CYANO/VITAMIN B12 1000 MCG TAB PO SCH (14:44)
[2016-10-30] MEDS: METOPROLOL TARTRATE 25 MG TAB PO SCH ×2 (14:44→22:43)
[2016-10-30] MEDS: ASPIRIN EC 81 MG TAB PO SCH (14:44)
[2016-10-30] MEDS: ANASTROZOLE 1 MG TAB PO SCH (14:50)
[2016-10-30] MEDS: VENLAFAXINE XR 37.5 MG CAP PO SCH (14:50)
[2016-10-30] MEDS: OMEPRAZOLE 40MG PO SCH (14:51)
--- NOTE | 2016-10-30 15:20 | GCON ---
[f rep st] CONSULTATION INFECTIOUS DISEASE CONSULTATION DATE OF CONSULTATION: 10/30/2016 REFERRING PHYSICIAN: Joe Villaseñor DO REASON FOR CONSULTATION: MSSA bacteremia and sternal wound infection. HISTORY OF PRESENT ILLNESS: The patient is a 70-year-old female who underwent coronary artery bypas s grafting x4 with CANTRELL on 08/12/2016 who I am asked to see in consultation for MSSA bacteremia with associated sternal wound infection and abscess formation. 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 No signs of infectio n were present intraoperatively and culture showed mixed cutaneous marie. Over the last several day s, the patient developed fever, chills, and erythema over her chest and sternum. She also has bilat eral indwelling breast implants placed approximately 4 years ago at time of breast reconstruction po breast cancer. The patient was seen in followup by Cardiothoracic Surgery and noted to have sign ificant purulent drainage from the sternal wound consistent with underlying subcutaneous abscess. S he was admitted to the hospital based on these findings and started on empiric vancomycin. Cultures of the wound drainage and blood have both shown methicillin-susceptible Staphylococcus aureus. A C T scan of the chest was performed to further evaluate prior to operative management, and did note th at a complex fluid and gas collection was present with some fluid extending towards both breast impl ants. The patient subsequently underwent wound debridement with placement of a wound VAC. Earlier today, it was noted that she had increasing pain and induration over the left breast and axillary re gion with plans for implant removal. The patient also has a solitary kidney and her creatinine has been elevated since admission in the 1.7-1.8 range. She also complains of some tenderness in the [facility] axillary region. She does not have nausea, vomiting, or diarrhea. Given the above findings, I am now asked to assist in her ongoing management. PAST MEDICAL HISTORY: As above, breast cancer, COPD, hypertension, hyperlipidemia, peripheral arter ial disease with known aortic aneurysm, obstructive sleep apnea, diastolic dysfunction. PAST SURGICAL HISTORY: Coronary artery bypass grafting as outlined above, subsequent sternal wound revision and debridement, prior mastectomy with reconstruction, right-sided nephrectomy. CURRENT MEDICATIONS: Vancomycin 750 mg IV daily, anastrozole 1 mg p.o. daily, aspirin 81 mg p.o. da shirley, Flonase 1 spray each nares daily, heparin 5000 units subcu q.8 hours, Lopressor 12.5 mg p.o. tw ice daily, Spiriva inhaler, omeprazole 40 mg p.o. daily, Praluent 75 mg subcu every 2 weeks, Advair 1 puff twice daily, Effexor XR 37.5 mg p.o. daily, vitamin B12 5000 mcg p.o. daily. ALLERGIES: Cephalexin associated with diffuse rash. Levofloxacin associated with diffuse rash. SOCIAL HISTORY: Patient quit smoking approximately 4 years ago. No alcohol or drug use. FAMILY HISTORY: Coronary artery disease. REVIEW OF SYSTEMS: Outside that in the HPI, remainder of a 10-system review is unremarkable. PHYSICAL EXAMINATION: VITAL SIGNS: Temperature 36.9, heart rate 89, respiratory rate 16, blood pre ssure 107/59, oxygen saturation 95% on 3 L. GENERAL: Patient is well nourished, well developed, in no acute distress. She appears nontoxic. HEENT: There is no scleral icterus, conjunctival inject ion or conjunctival petechiae. Oropharynx is edentulous with moist mucous membranes. No other lesi ons are noted. There is no nasal discharge. There is no tenderness over the frontal maxillary mast oid area. NECK: Supple without palpable lymphadenopathy or thyromegaly. CHEST: Clear to ausculta tion bilaterally without adventitious sounds. The respiratory effort is normal. Sternal wound show s wound VAC in place with minimal surrounding erythema. CARDIOVASCULAR: Regular rate and rhythm wi th a 1/6 systolic murmur heard at the left lower sternal border. No gallops or rubs are noted. TA ASTS: The left breast shows induration, warmth and tenderness over the mid breast extending into th e axillary region without overlying erythema. There is no erythema, induration or tenderness over t he right breast. Abdomen: Soft, nontender, nondistended. There is no palpable organomegaly. Yeu l sounds are present. MUSCULOSKELETAL: No cyanosis, clubbing, or edema. SKIN: There are no stigm kym of endocarditis. Skin is warm and dry to touch. See chest and breast exam for additional detai ls. LYMPHATICS: There are no cervical or supraclavicular nodes. There are no right axillary nodes palpable. NEUROLOGIC: Patient is alert and interacts appropriately with examiner. Cranial nerves 2-12 are grossly intact. Sensation is grossly intact. Muscle tone and bulk are normal. LABORATORY DATA: White blood cell count 5.2, hematocrit 24.8, platelets 229, serum creatinine is 1. 7, AST 75, ALT 59, alkaline phosphatase 352, bilirubin 1.0, albumin 2.3. Vancomycin trough is 10.8 on 10/28/2016. Blood cultures x2 sets from 10/26/2016 showed growth of MSSA. Cultures of the chest from 10/26/2016 showed growth of MSSA. Cultures of the operative specimen from 10/29/2016 showed g rowth of Staph aureus. CT scan of the chest as outlined in the history of present illness which was reviewed and interpreted by me today. IMPRESSION: Methicillin-susceptible Staphylococcus aureus bacteremia and sternal wound infection/ab scess status post debridement: The patient has underlying cephalexin allergy precluding use of cefa zolin. In the setting of acute renal insufficiency, we will avoid nafcillin given its potential for acute interstitial nephritis. Favor use of daptomycin 6 mg/kg q.24 hours as this is not typically associated with nephrotoxicity. Vancomycin with a solitary kidney and acute renal insufficiency wou ld pose potential risk of nephrotoxicity in this setting. Her creatinine clearance places her dapto mycin on the border of daily versus every other day dosing, but given the presence of bacteremia we will begin with daily dosing. Agree with plans for breast implant removal on the left given clinica l findings suggesting potential involvement as well as findings on CT scan. RECOMMENDATIONS: 1. Daptomycin 6 mg/kg IV q.24 hours. 2. Discontinue vancomycin. 3. Check baseline CPK on daptomycin. 4. Agree with plans for breast implant removal. 5. Follow up blood cultures to ensure clearing of bacteremia. Thank you for this consultation. We will continue to follow the patient with you. /[id number]/MODL
[2016-10-30] MEDS: NS IV SCH (15:49)
[2016-10-30] MEDS: DAPTOMYCIN IV SCH (15:49)
[2016-10-30] MEDS: NS 1,000 ML IV SCH (22:44)
[2016-10-31] MEDS: HEPARIN 5,000 UNIT/0.5 ML SYR SC SCH ×3 (05:46→20:30)
[2016-10-31] MEDS: traMADol 50 MG TAB PO PRN ×3 (05:51→20:28)
[2016-10-31] MEDS: ONDANSETRON 4 MG/2 ML VIAL IVP PRN (06:20)
[2016-10-31] MEDS: TIOTROPIUM BROMIDE 5 MCG IH SCH (08:15)
[2016-10-31] MEDS: FLUTICASONE/SALMETER 250/50MCG DISKUS IH SCH ×2 (08:16→20:30)
--- NOTE | 2016-10-31 09:08 | SOAPPROG ---
SOAP Progress Note Assessment/Plan: POD #2: sternal wound debridement, vac placement POD #1: explantation left breast implant, drain placement Upper sternal cellulitis with subcutaneous abscess s/p sternal debridement and vac placement. Taken back to OR for questionable left breast implant involvement. Implant removed and cavity explored without signs of infection. ABX as per ID. Vac management as per CTS. Plastics plan to evaluate wound Tuesday. ASTRID with h/o nephrectomy - Baseline Cr 0.8-1.0. Admit Cr 1.8, likely prerenal secondary to infection. Cr lower yesterday, labs pending this AM. CAD s/p CABG - c/w current management 10/31/16 11:04 Subjective: stomach feels uneasy Objective: Vital Signs Temp Pulse Resp BP Pulse Ox 36.7 C 87 16 108/71 93 10/31/16 07:10 10/31/16 08:24 10/31/16 08:24 10/31/16 07:10 10/31/16 08:24 Microbiology 10/30/16 13:06 Gram Stain - Final Breast - Eswab 10/26/16 20:00 Gram Stain - Final Chest - Swab Wound Culture - Final Staphylococcus Aureus 10/26/16 19:45 Blood Culture - Final Blood Staphylococcus Aureus 10/29/16 14:07 Gram Stain - Final Chest - Eswab Laboratory Results 10/30/16 06:00 10/30/16 06:00 10/30/16 10/31/16 11/01/16 05:59 05:59 05:59 Intake Total 2327 1235 Output Total 1155 445 Balance 1172 790 Physical Exam - Physical Exam General Appearance: alert, no apparent distress EENT: No scleral icterus (R), No scleral icterus (L) Neck: normal inspection Respiratory: No respiratory distress Cardiac/Chest: regular rate, rhythm, other (sternal vac with good seal ) Abdomen: non-tender, soft, No distended Skin: other (improving chest cellulitis ) Extremities: No pedal edema Neuro/Psych: no motor/sensory deficits, alert, normal mood/affect, oriented x 3 ICD10 Worksheet Patient Problems: Problems Problem Status Onset ASTRID (acute kidney injury) Acute Cellulitis Acute Breast cancer Chronic CAD, multiple vessel Chronic COPD (chronic obstructive pulmonary disease) Chronic Carotid artery disease Chronic FH: CABG (coronary artery bypass surgery) Chronic History of mastectomy Chronic History of nephrectomy, unilateral Chronic Hyperlipemia Chronic Hypertension 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
[2016-10-31] MEDS: OMEPRAZOLE 40MG PO SCH (09:13)
[2016-10-31] MEDS: METOPROLOL TARTRATE 25 MG TAB PO SCH ×2 (09:13→20:29)
[2016-10-31] MEDS: ANASTROZOLE 1 MG TAB PO SCH (09:13)
[2016-10-31] MEDS ORDERED: FAMOTIDINE 20 MG TAB PO SCH (10:00)
[2016-10-31] MEDS ORDERED: PANTOPRAZOLE SODIUM 40 MG TAB PO SCH (10:00)
[2016-10-31] MEDS ORDERED: CALCIUM CARBONATE 500 MG CHEWABLE TAB PO PRN (10:30)
[2016-10-31] MEDS: DAPTOMYCIN IV SCH (10:32)
[2016-10-31] MEDS: NS IV SCH (10:32)
[2016-10-31] MEDS: SENNOSIDES/DOCUSATE SODIUM TAB PO SCH ×2 (10:33→21:18)
[2016-10-31] MEDS: ASPIRIN EC 81 MG TAB PO SCH (10:33)
[2016-10-31] MEDS: CYANO/VITAMIN B12 1000 MCG TAB PO SCH (10:33)
[2016-10-31] MEDS: VENLAFAXINE XR 37.5 MG CAP PO SCH (10:34)
[2016-10-31 10:50] LABS: HEMATOCRIT 27.3 % (38.0-47.0); HEMOGLOBIN 8.5 g/dL (12.6-16.3); MEAN CELL HEMOGLOBIN 32.3 pg (27.9-34.1); MEAN CELL HEMOGLOBIN CONCENTR. 31.1 g/dL (32.4-36.7); MEAN CELL VOLUME 103.8 fL (81.5-99.8); RED BLOOD CELL COUNT 2.63 10^6/uL (4.18-5.33); RED CELL DISTRIBUTION WIDTH 15.4 % (11.5-15.2)
[2016-10-31] MEDS: FLUTICASONE NASAL 120 SPRAYS/16 GM MDI EACHNARE SCH (11:15)
[2016-10-31 11:36] LABS: ANION GAP 9 mEq/L (8-16); CALCIUM 8.9 mg/dL (8.5-10.4); CARBON DIOXIDE 20 mEq/l (22-31); CHLORIDE 112 mEq/L (97-110); CREATININE 1.6 mg/dL (0.6-1.0); GLOMERULAR FILTRATION RATE 32; GLUCOSE 90 mg/dL (70-100); POTASSIUM 4.6 mEq/L (3.5-5.2); SODIUM 141 mEq/L (134-144)
--- NOTE | 2016-10-31 15:27 | PCMIDPN ---
Assessment/Plan: Assessment/Plan: * MSSA bacteremia and sternal wound infection/abscess with involvement of left breast implant status post incision and drainage of abscess and removal of breast implant: All cultures growing Staphylococcus aureus. Repeat blood cultures are pending to assess for clearing of bacteremia. Have concerns that ultimately right breast implant will need to be removed given CT of chest showed fluid tracking toward this implant. There are no acute inflammatory signs present in this region however. Left axillary region is improved today post removal of implant. Continue daptomycin given prior cephalexin allergy and acute kidney injury with solitary kidney increasing potential risk of nephrotoxicity associated vancomycin use. 10/31/16 15:27 10/31/16 15:30 Subjective: Patient complains of nausea. Less pain in left axillary region today. Status post removal of breast implant yesterday. Objective: Vital Signs Temp Pulse Resp BP Pulse Ox 36.3 C 70 16 118/76 92 10/31/16 11:35 10/31/16 11:35 10/31/16 11:35 10/31/16 11:35 10/31/16 11:35 Microbiology 10/29/16 14:07 Gram Stain - Final Chest - Eswab 10/30/16 13:06 Gram Stain - Final Breast - Eswab 10/26/16 20:00 Gram Stain - Final Chest - Swab Wound Culture - Final Staphylococcus Aureus 10/26/16 19:45 Blood Culture - Final Blood Staphylococcus Aureus Laboratory Results 10/31/16 10:45 10/31/16 10:45 10/30/16 10/31/16 11/01/16 05:59 05:59 05:59 Intake Total 2327 1235 Output Total 1155 445 Balance 1172 790 Daptomycin # 2 Antibiotics # 6 Breast culture and chest culture both with growth of Staphylococcus aureus Blood cultures x2 MSSA Blood cultures 10/30/2016 pending Laboratory Tests 10/30/16 06:00 Creatine Kinase 42 - Physical Exam General Appearance: alert, no apparent distress EENT: No conjunctival petechiae Cardiac/Chest: regular rate, rhythm, other (Wound VAC in place over sternal incision; left axillary region with decreased warmth, tenderness and induration) , No systolic murmur Extremities: No inflammation Abdomen: non-tender, No distended Skin: No embolic lesions ICD10 Worksheet Patient Problems: Problems Problem Status Onset ASTRID (acute kidney injury) Acute Cellulitis Acute Breast cancer Chronic CAD, multiple vessel Chronic COPD (chronic obstructive pulmonary disease) Chronic Carotid artery disease Chronic FH: CABG (coronary artery bypass surgery) Chronic History of mastectomy Chronic History of nephrectomy, unilateral Chronic Hyperlipemia Chronic Hypertension 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
[2016-10-31] MEDS: MAG HYDROX/AL HYDROX/SIMETH 30 ML UDCUP PO PRN (16:57)
[2016-11-01] MEDS: HEPARIN 5,000 UNIT/0.5 ML SYR SC SCH ×3 (05:11→21:29)
[2016-11-01] MEDS: MAG HYDROX/AL HYDROX/SIMETH 30 ML UDCUP PO PRN (05:14)
[2016-11-01] MEDS: TIOTROPIUM BROMIDE 5 MCG IH SCH (09:21)
[2016-11-01] MEDS: FLUTICASONE/SALMETER 250/50MCG DISKUS IH SCH ×2 (09:21→20:03)
[2016-11-01] MEDS: ONDANSETRON 4 MG/2 ML VIAL IVP PRN (09:43)
[2016-11-01] MEDS: SENNOSIDES/DOCUSATE SODIUM TAB PO SCH ×2 (09:44→20:39)
[2016-11-01] MEDS: METOPROLOL TARTRATE 25 MG TAB PO SCH ×2 (09:44→20:05)
[2016-11-01] MEDS: CYANO/VITAMIN B12 1000 MCG TAB PO SCH (09:46)
[2016-11-01] MEDS: ANASTROZOLE 1 MG TAB PO SCH (09:49)
[2016-11-01] MEDS: VENLAFAXINE XR 37.5 MG CAP PO SCH (09:49)
[2016-11-01] MEDS: OMEPRAZOLE 40MG PO SCH (09:50)
[2016-11-01] MEDS: DAPTOMYCIN IV SCH (09:57)
[2016-11-01] MEDS: NS IV SCH (09:57)
[2016-11-01] MEDS: ASPIRIN EC 81 MG TAB PO SCH (09:57)
[2016-11-01] MEDS: FLUTICASONE NASAL 120 SPRAYS/16 GM MDI EACHNARE SCH (10:00)
--- NOTE | 2016-11-01 10:23 | PCMIDPN ---
Assessment/Plan: Assessment: Methicillin sensitive Staph aureus sternal incision infection with extension to the left-sided breast implant. Breast implant status post removal. Patient is continuing on daptomycin. At this point there is no evidence that the right breast is involved. Would continue daptomycin treatment and continue to follow the follow-up blood cultures which to this point are negative. Creatinine kinase levels are normal. Plan: 1. Continue daptomycin. 2. Follow blood culture results and clinical improvement. Subjective: Patient resting comfortably in her hospital bed. She is nontoxic. She denies any fevers or chills. No rash. No diarrhea. Objective: Daptomycin # 3 Vital Signs Temp Pulse Resp BP Pulse Ox 36.6 C 96 18 171/83 H 94 11/01/16 08:00 11/01/16 09:20 11/01/16 09:20 11/01/16 08:00 11/01/16 08:00 Microbiology 10/30/16 13:06 Gram Stain - Final Breast - Eswab 10/29/16 14:07 Gram Stain - Final Chest - Eswab Laboratory Results 10/31/16 10:45 10/31/16 10:45 10/31/16 11/01/16 11/02/16 05:59 05:59 05:59 Intake Total 1235 1850 Output Total 931 032 9969 Balance 790 1500 -1000 - Physical Exam General Appearance: WD/WN, alert, no apparent distress, non-toxic Respiratory: lungs clear, normal breath sounds, respiratory distress Cardiac/Chest: regular rate, rhythm, No tachycardia, No systolic murmur Skin: normal color, warm/dry, other (VAC dressing on sternal wound.), No rash Neuro/Psych: alert, normal mood/affect, oriented x 3 ICD10 Worksheet Patient Problems: Problems Problem Status Onset ASTRID (acute kidney injury) Acute Cellulitis Acute Breast cancer Chronic CAD, multiple vessel Chronic COPD (chronic obstructive pulmonary disease) Chronic Carotid artery disease Chronic FH: CABG (coronary artery bypass surgery) Chronic History of mastectomy Chronic History of nephrectomy, unilateral Chronic Hyperlipemia Chronic Hypertension 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
--- NOTE | 2016-11-01 13:23 | SOAPPROG ---
SOAP Progress Note Assessment/Plan: Assessment: POD#3 POD#2 IV daptomycin per RUE PICC. Upper sternal cellulitis - Associated with subcutaneous abscess. Active drainage promoted by local I&D. Gram stain 2+GPC. Precautionary blood cxs sent and pending. Empiric IV Vanco pending more definitive intraop cultures. CT chest to better define extent of needed revision. Removal of bilateral breast implants desired. Plastics consult planned. ASTRID - Single kidney w baseline Cr 0.8-1.0. Admit Cr 1.8, likely prerenal ( relative dehydration and hypotension) secondary to infection. IVF started. Diuretics held. Plan: Consider MICHI removal tomorrow. Cont wound vac M,W,F. 11/01/16 13:21 Objective: Vital Signs Temp Pulse Resp BP Pulse Ox 36.6 C 96 18 171/83 H 94 11/01/16 08:00 11/01/16 09:20 11/01/16 09:20 11/01/16 08:00 11/01/16 08:00 Microbiology 10/30/16 13:06 Gram Stain - Final Breast - Eswab 10/29/16 14:07 Gram Stain - Final Chest - Eswab Laboratory Results 10/31/16 10:45 10/31/16 10:45 10/31/16 11/01/16 11/02/16 05:59 05:59 05:59 Intake Total 1235 1850 300 Output Total 056 237 7135 Balance 790 1500 -700 ICD10 Worksheet Patient Problems: Problems Problem Status Onset ASTRID (acute kidney injury) Acute Cellulitis Acute Breast cancer Chronic CAD, multiple vessel Chronic COPD (chronic obstructive pulmonary disease) Chronic Carotid artery disease Chronic FH: CABG (coronary artery bypass surgery) Chronic History of mastectomy Chronic History of nephrectomy, unilateral Chronic Hyperlipemia Chronic Hypertension 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
--- NOTE | 2016-11-01 14:19 | SOAPPROG ---
SOAP Progress Note Assessment/Plan: Assessment: POD#3 sternal wound debridement, vac placement POD#2: Explantation of left breast implant, drain placement D2 IV daptomycin per [facility]. Upper sternal cellulitis - Associated with MSSA subcutaneous abscess and bacteremia. No evidence deep infection. Now s/p staged debridement, incl left breast implant removal. Need for rt breast implant removal as yet unclear. Plastics to assist with chest reconstruction if more extensive debridement undertaken. Central wound management for now with vac. Targetted Abx per ID. Repeat blood cxs NGTD. ASTRID - Single kidney w baseline Cr 0.8-1.0. Admit Cr 1.8, likely prerenal ( relative dehydration and hypotension) secondary to infection. Gradual decline in Cr noted. Followed closely. Stable CAD - Off tele. Plan: Consider MICHI removal tomorrow. Cont wound vac M,W,F. Consider repeat CT chest 11/01/16 11:21 Subjective: Nauseous but still has an appetite and able to tolerate a bit of food. Left lat chest less painful. Rt lat chest achey but not like the left was. Objective: Vital Signs Temp Pulse Resp BP Pulse Ox 37.3 C 82 16 137/72 H 91 L 11/01/16 12:00 11/01/16 12:00 11/01/16 12:00 11/01/16 12:00 11/01/16 12:00 Microbiology 10/30/16 13:06 Gram Stain - Final Breast - Eswab 10/29/16 14:07 Gram Stain - Final Chest - Eswab Laboratory Results 10/31/16 10:45 10/31/16 10:45 10/31/16 11/01/16 11/02/16 05:59 05:59 05:59 Intake Total 1235 1850 300 Output Total 911 676 0556 Balance 790 1500 -700 Cardioresp status stable. Left subpec drain approaching removal criteria. Wound vac good seal, min drainge. Physical Exam - Physical Exam General Appearance: alert, no apparent distress Respiratory: lungs clear Cardiac/Chest: regular rate, rhythm, other (sternal wound VAC intact. Periwound soft. No visible erythema. 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
[2016-11-01] MEDS: traMADol 50 MG TAB PO PRN (21:29)
[2016-11-02] MEDS: HEPARIN 5,000 UNIT/0.5 ML SYR SC SCH ×3 (05:37→20:27)
[2016-11-02 06:10] LABS: HEMATOCRIT 26.3 % (38.0-47.0); HEMOGLOBIN 8.3 g/dL (12.6-16.3); MEAN CELL HEMOGLOBIN 31.9 pg (27.9-34.1); MEAN CELL HEMOGLOBIN CONCENTR. 31.6 g/dL (32.4-36.7); MEAN CELL VOLUME 101.2 fL (81.5-99.8); RED BLOOD CELL COUNT 2.6 10^6/uL (4.18-5.33); RED CELL DISTRIBUTION WIDTH 15.2 % (11.5-15.2)
[2016-11-02 06:23] LABS: ANION GAP 8 mEq/L (8-16); CALCIUM 8.9 mg/dL (8.5-10.4); CARBON DIOXIDE 23 mEq/l (22-31); CHLORIDE 110 mEq/L (97-110); CREATININE 1.4 mg/dL (0.6-1.0); GLOMERULAR FILTRATION RATE 37; GLUCOSE 94 mg/dL (70-100); POTASSIUM 4.2 mEq/L (3.5-5.2); SODIUM 141 mEq/L (134-144)
[2016-11-02] MEDS: TIOTROPIUM BROMIDE 5 MCG IH SCH (09:01)
[2016-11-02] MEDS: FLUTICASONE/SALMETER 250/50MCG DISKUS IH SCH ×2 (09:02→20:18)
[2016-11-02] MEDS: ACETAMINOPHEN 325 MG TAB PO PRN (09:22)
[2016-11-02] MEDS: ASPIRIN EC 81 MG TAB PO SCH (09:23)
[2016-11-02] MEDS: VENLAFAXINE XR 37.5 MG CAP PO SCH (09:23)
[2016-11-02] MEDS: METOPROLOL TARTRATE 25 MG TAB PO SCH ×2 (09:29→20:35)
[2016-11-02] MEDS: traMADol 50 MG TAB PO PRN ×2 (09:29→22:49)
[2016-11-02] MEDS: ANASTROZOLE 1 MG TAB PO SCH (09:30)
[2016-11-02] MEDS: SENNOSIDES/DOCUSATE SODIUM TAB PO SCH ×2 (09:30→20:28)
[2016-11-02] MEDS: CYANO/VITAMIN B12 1000 MCG TAB PO SCH (09:31)
[2016-11-02] MEDS: OMEPRAZOLE 40MG PO SCH (09:32)
[2016-11-02] MEDS: FLUTICASONE NASAL 120 SPRAYS/16 GM MDI EACHNARE SCH (09:41)
[2016-11-02] MEDS: DAPTOMYCIN IV SCH (09:41)
[2016-11-02] MEDS: NS IV SCH (09:41)
--- NOTE | 2016-11-02 10:03 | SOAPPROG ---
SOAP Progress Note Assessment/Plan: Assessment: POD#4 sternal wound debridement, vac placement POD#3: Explantation of left breast implant, drain placement D3 IV daptomycin per [facility]. Upper sternal cellulitis - Associated with MSSA subcutaneous abscess and bacteremia. No evidence deep infection. Now s/p staged debridement, incl left breast implant removal. Need for rt breast implant removal as yet unclear. Plastics to assist with chest reconstruction if more extensive debridement undertaken. Central wound management for now with vac. Close inspection of wound tomorrow. Targetted Abx per ID. Repeat blood cxs NGTD. ASTRID - Single kidney w baseline Cr 0.8-1.0. Admit Cr 1.8, likely prerenal ( relative dehydration and hypotension) secondary to infection. Gradual decline in Cr noted. Monitored. Stable CAD - Off tele. Plan: MICHI removal later today if am output < 25cc. Cont wound vac M,W,F. Decision making re. return to OR and wound vac vs topical dressing tomorrow. 11/02/16 09:03 Subjective: Doing ok. No change in soreness. Nausea seemingly resolved. Objective: Vital Signs Temp Pulse Resp BP Pulse Ox 36.9 C 75 16 161/80 H 95 11/02/16 07:49 11/02/16 07:49 11/02/16 07:49 11/02/16 07:49 11/02/16 07:49 Microbiology 10/30/16 13:06 Gram Stain - Final Breast - Eswab 10/29/16 14:07 Gram Stain - Final Chest - Eswab Laboratory Results 11/02/16 05:45 11/02/16 05:45 11/01/16 11/02/16 11/03/16 05:59 05:59 05:59 Intake Total 1850 850 Output Total 350 3040 Balance 1500 -2190 Breast swab GS +staph, cx pending MICHI output 5 cc overnoc, reportedly 45 cc this am. Wound vac +good seal, min drainage Physical Exam - Physical Exam General Appearance: alert, no apparent distress Respiratory: lungs clear Cardiac/Chest: regular rate, rhythm, other (faint erythema midline upper chest; MICHI drain to bulb suction, thin serosang drainage) Abdomen: non-tender, soft Skin: warm/dry Extremities: other (no visible edema) ICD10 Worksheet Patient Problems: Problems Problem Status Onset ASTRID (acute kidney injury) Acute Cellulitis Acute Breast cancer Chronic CAD, multiple vessel Chronic COPD (chronic obstructive pulmonary disease) Chronic Carotid artery disease Chronic FH: CABG (coronary artery bypass surgery) Chronic History of mastectomy Chronic History of nephrectomy, unilateral Chronic Hyperlipemia Chronic Hypertension 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
--- NOTE | 2016-11-02 18:45 | PCMIDPN ---
Assessment/Plan: Assessment/Plan: * MSSA bacteremia and sternal wound infection/abscess with involvement of left breast implant status post incision and drainage of abscess and removal of breast implant: All cultures growing MSSA. Repeat blood cultures are no growth from 10/30/2016. Follow right breast exam over time given presence of fluid on CT scan which tracked toward implant; no inflammatory findings on exam. Continue daptomycin. If blood cultures remain negative tomorrow, plan to change PICC line as this was initially placed with bacteremia present. Cardiothoracic surgery will remove wound VAC tomorrow. 11/02/16 18:41 Subjective: Patient feels better today. Nausea has resolved. Less pain in left axillary region. No pain over right breast. Mild pain superior sternal incision. Objective: Vital Signs Temp Pulse Resp BP Pulse Ox 37.1 C 71 14 155/83 H 95 11/02/16 15:25 11/02/16 15:25 11/02/16 15:25 11/02/16 15:25 11/02/16 15:25 Microbiology 10/30/16 13:06 Gram Stain - Final Breast - Eswab 10/29/16 14:07 Gram Stain - Final Chest - Eswab Laboratory Results 11/02/16 05:45 11/02/16 05:45 11/01/16 11/02/16 11/03/16 05:59 05:59 05:59 Intake Total 1850 850 100 Output Total 350 3040 Balance 1500 -2190 100 Daptomycin # 4 Antibiotics # 8 Blood cultures 10/30/16 no growth - Physical Exam General Appearance: alert, no apparent distress EENT: No conjunctival petechiae Respiratory: lungs clear, No respiratory distress Cardiac/Chest: regular rate, rhythm, other (Mild erythema superior margin of sternal incision; left axillary region with residual induration and tenderness inferiorly but no erythema; right breast without erythema or tenderness) Abdomen: non-tender, No distended Skin: No embolic lesions ICD10 Worksheet Patient Problems: Problems Problem Status Onset ASTRID (acute kidney injury) Acute Cellulitis Acute Breast cancer Chronic CAD, multiple vessel Chronic COPD (chronic obstructive pulmonary disease) Chronic Carotid artery disease Chronic FH: CABG (coronary artery bypass surgery) Chronic History of mastectomy Chronic History of nephrectomy, unilateral Chronic Hyperlipemia Chronic Hypertension 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
[2016-11-03] MEDS: traMADol 50 MG TAB PO PRN ×4 (05:46→21:40)
[2016-11-03] MEDS: HEPARIN 5,000 UNIT/0.5 ML SYR SC SCH ×3 (05:46→21:38)
[2016-11-03] MEDS: TIOTROPIUM BROMIDE 5 MCG IH SCH (09:03)
[2016-11-03] MEDS: FLUTICASONE/SALMETER 250/50MCG DISKUS IH SCH ×2 (09:03→21:52)
[2016-11-03] MEDS: VENLAFAXINE XR 37.5 MG CAP PO SCH (09:38)
[2016-11-03] MEDS: amLODIPine BESYLATE 5 MG TAB PO SCH (09:38)
[2016-11-03] MEDS: ASPIRIN EC 81 MG TAB PO SCH (09:38)
[2016-11-03] MEDS: ANASTROZOLE 1 MG TAB PO SCH (09:38)
[2016-11-03] MEDS: METOPROLOL TARTRATE 25 MG TAB PO SCH ×2 (09:39→21:39)
[2016-11-03] MEDS: DAPTOMYCIN IV SCH (09:39)
[2016-11-03] MEDS: NS IV SCH (09:39)
[2016-11-03] MEDS: OMEPRAZOLE 40MG PO SCH (09:40)
[2016-11-03] MEDS: CYANO/VITAMIN B12 1000 MCG TAB PO SCH (09:40)
[2016-11-03] MEDS ORDERED: ALTEPLASE 2 MG VIAL IVP PRN (09:54)
--- NOTE | 2016-11-03 09:57 | PCMIDPN ---
Assessment/Plan: # MSSA bacteremia, sternal wound soft tissue infection extending to breast implants. Increase redness at proximal region of wound, but afebrile and normal white count --PICC line exchange, blood cx 10/30 now negative --may need further debridement, R breast implant removal --patient is on daptomycin because of history of Keflex allergy and tenuous renal function # acute renal failure, creatinine significantly better today at 1.1 Medications 3 Generic Name Dose Route Start Last Admin Trade Name Freq PRN Reason Stop Dose Admin Daptomycin 425 mg/ Sodium 108.5 mls @ 200 mls/hr 10/30/16 14:30 11/03/16 09: 39 Chloride IV Daily Day #5 108.5 mls Subjective: Patient reports discomfort at the proximal portion of the wound and over the left upper chest No diarrhea Objective: Vital Signs Temp Pulse Resp BP Pulse Ox 36.7 C 84 18 175/97 H 93 11/03/16 09:23 11/03/16 09:23 11/03/16 09:23 11/03/16 09:23 11/03/16 09:23 Microbiology 10/30/16 13:06 Gram Stain - Final Breast - Eswab 10/29/16 14:07 Gram Stain - Final Chest - Eswab Laboratory Results 11/02/16 05:45 11/02/16 05:45 11/02/16 11/03/16 11/04/16 05:59 05:59 05:59 Intake Total 850 1000 350 Output Total 3040 3240 650 Balance -2190 -2240 -300 - Physical Exam General Appearance: alert, no apparent distress EENT: pale conjunctiva Respiratory: lungs clear Cardiac/Chest: regular rate, rhythm, other (Wound VAC in place mid sternum with erythema surrounding upper portion of wound. No obvious fluctuance. Mild tenderness over the left upper chest but no obvious erythema) Extremities: No pedal edema Abdomen: non-tender, soft Skin: erythema (As above) Neuro/Psych: alert, normal mood/affect, oriented x 3 - Line/s RUE PICC Lines: No drainage, No erythema - Time Spent With Patient Time Spent with Patient: greater than 35 minutes Time Spent with Patient: Greater than 35 minutes spent on this patients care, greater than 50% of time spent counseling, educating, and coordinating care regarding the above mentioned plan. 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
[2016-11-03] MEDS: SENNOSIDES/DOCUSATE SODIUM TAB PO SCH (10:11)
[2016-11-03] MEDS: FLUTICASONE NASAL 120 SPRAYS/16 GM MDI EACHNARE SCH (10:11)
[2016-11-03 10:18] LABS: ALANINE AMINOTRANSFERASE 31 IU/L (9-52); ALBUMIN 2.2 g/dL (3.5-5.0); ALKALINE PHOSPHATASE 194 IU/L (38-126); ANION GAP 6 mEq/L (8-16); ASPARTATE AMINOTRANSFERASE 17 IU/L (14-46); BILIRUBIN,TOTAL 0.3 mg/dL (0.1-1.4); C-REACTIVE PROTEIN 34.7 mg/L (<10.0); CALCIUM 7.5 mg/dL (8.5-10.4); CARBON DIOXIDE 22 mEq/l (22-31); CHLORIDE 115 mEq/L (97-110); CREATININE 1.1 mg/dL (0.6-1.0); GLOMERULAR FILTRATION RATE 49; GLUCOSE 71 mg/dL (70-100); POTASSIUM 3.2 mEq/L (3.5-5.2); SODIUM 143 mEq/L (134-144); TOTAL PROTEIN 4.6 g/dL (6.3-8.2)
[2016-11-03] MEDS ORDERED: POTASSIUM CL 20 MEQ TAB PO ONE (16:00)
--- NOTE | 2016-11-03 16:00 | SOAPPROG ---
SOAP Progress Note Assessment/Plan: Assessment: POD#5 sternal wound debridement, vac placement POD#4: Explantation of left breast implant, drain placement D4 IV daptomycin per RUE PICC. Upper sternal cellulitis - Associated with MSSA subcutaneous abscess and bacteremia. No evidence deep infection. Now s/p staged debridement, incl left breast implant removal. Need for rt breast implant removal as yet unclear. Plastics to assist with chest reconstruction if more extensive debridement undertaken. Targetted Abx per ID. Repeat blood cxs neg. New PICC placed. ASTRID - Single kidney w baseline Cr 0.8-1.0. Admit Cr 1.8, likely prerenal ( relative dehydration and hypotension) secondary to infection. Gradual normalization of Cr noted with supportive care. Stable CAD - Off tele. Plan: Replete K. Remove MICHI. Vac holiday. Decision re. return to OR per Dr Villaseñor. 11/03/16 15:06 Subjective: Doing ok. Upper chest ache persists. Nervous about rt breast implant being contaminated and would just as soon have it removed. Objective: Vital Signs Temp Pulse Resp BP Pulse Ox 36.5 C 86 16 136/91 H 91 L 11/03/16 15:16 11/03/16 15:16 11/03/16 15:16 11/03/16 15:16 11/03/16 15:16 Microbiology 10/30/16 13:06 Gram Stain - Final Breast - Eswab 10/29/16 14:07 Gram Stain - Final Chest - Eswab Laboratory Results 11/02/16 05:45 11/03/16 09:50 11/02/16 11/03/16 11/04/16 05:59 05:59 05:59 Intake Total 850 1000 450 Output Total 3040 3240 665 Balance -2190 -2240 -215 Afebrile. Some faint erythema extending beyond inked boundary distally. Vigorous autodiuresis with attendant K loss. Physical Exam - Physical Exam General Appearance: alert, no apparent distress Respiratory: lungs clear Cardiac/Chest: regular rate, rhythm, other (Wound vac removed. Faint erythema proximally, no induration. Exposed soft tissue clean and moist with early granulation and minimal slough. Upper portion of wound w visible separation of manubrium during respiration. Gap bridged by fibrinous material. Wet to dry dressing placed. 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
[2016-11-04] MEDS: SENNOSIDES/DOCUSATE SODIUM TAB PO SCH ×2 (02:40→10:10)
[2016-11-04] MEDS: HEPARIN 5,000 UNIT/0.5 ML SYR SC SCH (06:15)
[2016-11-04] MEDS: FLUTICASONE/SALMETER 250/50MCG DISKUS IH SCH ×2 (08:07→20:03)
[2016-11-04] MEDS: TIOTROPIUM BROMIDE 5 MCG IH SCH (08:07)
[2016-11-04] MEDS: DAPTOMYCIN IV SCH (08:24)
[2016-11-04] MEDS: METOPROLOL TARTRATE 25 MG TAB PO SCH ×2 (08:24→21:16)
[2016-11-04] MEDS: VENLAFAXINE XR 37.5 MG CAP PO SCH (08:24)
[2016-11-04] MEDS: NS IV SCH (08:24)
[2016-11-04] MEDS: traMADol 50 MG TAB PO PRN ×4 (08:25→21:37)
[2016-11-04] MEDS: amLODIPine BESYLATE 5 MG TAB PO SCH (08:25)
[2016-11-04] MEDS: ANASTROZOLE 1 MG TAB PO SCH (08:25)
[2016-11-04] MEDS: ASPIRIN EC 81 MG TAB PO SCH (08:25)
[2016-11-04] MEDS: OMEPRAZOLE 40MG PO SCH (08:26)
[2016-11-04] MEDS: CYANO/VITAMIN B12 1000 MCG TAB PO SCH (08:26)
--- NOTE | 2016-11-04 09:39 | SOAPPROG ---
SOAP Progress Note Assessment/Plan: Assessment: POD#6 sternal wound debridement, vac placement POD#5: Explantation of left breast implant, drain placement D5 IV daptomycin per RUE PICC. Upper sternal cellulitis - Associated with MSSA subcutaneous abscess and bacteremia. No evidence deep infection. Now s/p staged debridement, incl left breast implant removal. Need for rt breast implant removal as yet unclear. Plastics to assist with chest reconstruction if more extensive debridement undertaken. Targetted Abx per ID. Repeat blood cxs neg. New PICC placed. ASTRID - Single kidney w baseline Cr 0.8-1.0. Admit Cr 1.8, likely prerenal ( relative dehydration and hypotension) secondary to infection. Gradual normalization of Cr noted with supportive care. Stable CAD - Off tele. Plan: Vac holiday thru wkend. Cont BID wet to dry dressings. Watchful waiting for inflammatory changes. Inc pm metoprolol to 25 mg. 11/04/16 09:39 Subjective: Feels ok. No acute concerns. Trying her best to be patient and optimistic. Pleased to be switching to a room with a view. Objective: Vital Signs Temp Pulse Resp BP Pulse Ox 36.8 C 75 12 157/88 H 97 11/04/16 08:00 11/04/16 08:09 11/04/16 08:09 11/04/16 08:00 11/04/16 08:09 Microbiology 10/30/16 13:06 Gram Stain - Final Breast - Eswab 10/29/16 14:07 Gram Stain - Final Chest - Eswab Laboratory Results 11/02/16 05:45 11/03/16 09:50 11/03/16 11/04/16 11/05/16 05:59 05:59 05:59 Intake Total 1000 950 Output Total 3240 1365 Balance -2240 -415 MICHI pulled last night. Original dressing intact. Afeb. Upward BP creep. Physical Exam - Physical Exam General Appearance: alert, no apparent distress Respiratory: lungs clear, other (left lat chest soft, Michi site moist but not actively oozing. Dry dressing applied.) Cardiac/Chest: regular rate, rhythm, other (open wound clean and moist; no purulence; faint localized erythema upper margin) Abdomen: non-tender, soft Skin: warm/dry Extremities: other (no visible edema) ICD10 Worksheet Patient Problems: Problems Problem Status Onset ASTRID (acute kidney injury) Acute Cellulitis Acute Breast cancer Chronic CAD, multiple vessel Chronic COPD (chronic obstructive pulmonary disease) Chronic Carotid artery disease Chronic FH: CABG (coronary artery bypass surgery) Chronic History of mastectomy Chronic History of nephrectomy, unilateral Chronic Hyperlipemia Chronic Hypertension 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
[2016-11-04] MEDS: FLUTICASONE NASAL 120 SPRAYS/16 GM MDI EACHNARE SCH (10:09)
--- NOTE | 2016-11-04 12:09 | PCMIDPN ---
Assessment/Plan: Assessment/Plan: * MSSA bacteremia and sternal wound infection/abscess with involvement of left breast implant status post incision and drainage of abscess and removal of breast implant: Bacteremia has cleared. Erythema over upper chest decreased. Follow right breast exam over time given presence of fluid on CT scan which tracked toward implant - remains without pain, erythema or tenderness over right breast. Continue daptomycin with anticipated 6 week course of therapy. PICC line changed yesterday. 11/04/16 12:07 Subjective: Patient without right breast pain. Notes some drainage from left breast prior drain site. Objective: Vital Signs Temp Pulse Resp BP Pulse Ox 36.8 C 75 12 157/88 H 97 11/04/16 08:00 11/04/16 08:09 11/04/16 08:09 11/04/16 08:00 11/04/16 08:09 Microbiology 10/30/16 13:06 Gram Stain - Final Breast - Eswab 10/29/16 14:07 Gram Stain - Final Chest - Eswab Laboratory Results 11/02/16 05:45 11/03/16 09:50 11/03/16 11/04/16 11/05/16 05:59 05:59 05:59 Intake Total 1000 950 Output Total 3240 1365 Balance -2240 -415 C-Reactive Protein 34.7 mg/L (<10.0) H 11/03/16 09:50 Daptomycin #6 Antibiotics #9 Blood cultures 10/30/2016 no growth - Physical Exam General Appearance: alert, no apparent distress EENT: No thrush Respiratory: lungs clear (Anterolaterally) Cardiac/Chest: regular rate, rhythm, other (Erythema over upper portion of sternal incision has decreased significantly; left chest wall with residual induration although less prominent and tenderness decreased; serosanguineous drainage from prior drain site; right breast area without erythema, warmth or tenderness) Abdomen: non-tender, No distended - Line/s RUE PICC Lines: No drainage, No erythema ICD10 Worksheet Patient Problems: Problems Problem Status Onset ASTRID (acute kidney injury) Acute Cellulitis Acute Breast cancer Chronic CAD, multiple vessel Chronic COPD (chronic obstructive pulmonary disease) Chronic Carotid artery disease Chronic FH: CABG (coronary artery bypass surgery) Chronic History of mastectomy Chronic History of nephrectomy, unilateral Chronic Hyperlipemia Chronic Hypertension 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
[2016-11-04] MEDS ORDERED: METOPROLOL TARTRATE 25 MG TAB PO SCH (21:00)
[2016-11-05 06:51] LABS: HEMATOCRIT 26.1 % (38.0-47.0); HEMOGLOBIN 8.5 g/dL (12.6-16.3); MEAN CELL HEMOGLOBIN 32.6 pg (27.9-34.1); MEAN CELL HEMOGLOBIN CONCENTR. 32.6 g/dL (32.4-36.7); RED BLOOD CELL COUNT 2.61 10^6/uL (4.18-5.33); RED CELL DISTRIBUTION WIDTH 15.2 % (11.5-15.2)
[2016-11-05 07:12] LABS: ANION GAP 9 mEq/L (8-16); CALCIUM 8.7 mg/dL (8.5-10.4); CARBON DIOXIDE 27 mEq/l (22-31); CHLORIDE 103 mEq/L (97-110); CREATININE 1.5 mg/dL (0.6-1.0); GLOMERULAR FILTRATION RATE 34; GLUCOSE 83 mg/dL (70-100); SODIUM 139 mEq/L (134-144)
--- NOTE | 2016-11-05 07:56 | SOAPPROG ---
SOAP Progress Note Assessment/Plan: Assessment: POD#7 sternal wound debridement, vac placement POD#8: Explantation of left breast implant, drain placement D6 IV daptomycin per RUE PICC. Upper sternal cellulitis - Associated with MSSA subcutaneous abscess and bacteremia. No evidence deep infection. Now s/p staged debridement, incl left breast implant removal. Need for rt breast implant removal as yet unclear. Abx per ID. Repeat blood cxs neg. New PICC placed. Will work on getting patient home with services (wound care/ABX) today or over the weekend. ASTRID - Single kidney w baseline Cr 0.8-1.0. Admit Cr 1.8, likely prerenal ( relative dehydration and hypotension) secondary to infection. Gradual normalization of Cr noted with supportive care. Noted to be 1.5 this AM. Continue to periodically monitor. Stable CAD - Off tele. 11/05/16 11:42 Subjective: Feels well. No pain. No fevers/chills/N/V. Objective: Vital Signs Temp Pulse Resp BP Pulse Ox 36.6 C 69 17 103/58 L 95 11/05/16 04:00 11/05/16 04:00 11/05/16 04:00 11/05/16 04:00 11/05/16 04:00 Microbiology 10/30/16 15:00 Blood Culture - Final Blood 10/30/16 15:00 Blood Culture - Final Blood 10/30/16 13:06 Gram Stain - Final Breast - Eswab 10/29/16 14:07 Gram Stain - Final Chest - Eswab Laboratory Results 11/05/16 06:30 11/05/16 06:30 11/04/16 11/05/16 11/06/16 05:59 05:59 05:59 Intake Total 950 1200 Output Total 1365 1450 Balance -415 -250 Physical Exam - Physical Exam General Appearance: WD/WN, alert, no apparent distress EENT: No scleral icterus (R), No scleral icterus (L) Neck: normal inspection Respiratory: No respiratory distress Cardiac/Chest: regular rate, rhythm, other (Sternal wound open without purulent drainage. Skin surrounding wound with mild erythema. NTP. 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
[2016-11-05] MEDS: FLUTICASONE/SALMETER 250/50MCG DISKUS IH SCH ×2 (08:44→21:00)
[2016-11-05] MEDS: TIOTROPIUM BROMIDE 5 MCG IH SCH (08:44)
[2016-11-05] MEDS: METOPROLOL TARTRATE 25 MG TAB PO SCH ×2 (09:16→22:24)
[2016-11-05] MEDS: VENLAFAXINE XR 37.5 MG CAP PO SCH (09:16)
[2016-11-05] MEDS: ANASTROZOLE 1 MG TAB PO SCH (09:18)
[2016-11-05] MEDS: ASPIRIN EC 81 MG TAB PO SCH (09:18)
[2016-11-05] MEDS: amLODIPine BESYLATE 5 MG TAB PO SCH (09:18)
[2016-11-05] MEDS: ENOXAPARIN 40 MG/0.4 ML SYR SC SCH (09:19)
[2016-11-05] MEDS: CYANO/VITAMIN B12 1000 MCG TAB PO SCH (09:20)
[2016-11-05] MEDS: NS IV SCH (09:22)
[2016-11-05] MEDS: DAPTOMYCIN IV SCH (09:22)
[2016-11-05] MEDS: OMEPRAZOLE 40MG PO SCH (09:25)
[2016-11-05] MEDS: FLUTICASONE NASAL 120 SPRAYS/16 GM MDI EACHNARE SCH (15:03)
[2016-11-05] MEDS: SENNOSIDES/DOCUSATE SODIUM TAB PO PRN (15:31)
--- NOTE | 2016-11-05 15:54 | PCMIDPN ---
Assessment/Plan: # MSSA bacteremia, sternal wound soft tissue infection extending to breast implants. Increase redness at proximal region of wound, but afebrile and normal white count --PICC line exchanged 2 days ago, blood cx 10/30 now negative --IV daptomycin through 12/11/16; interagency completed --check CK with AML tomorrow # Renal insufficiency, Cr fluctuating form 1.1 to 1.5 Medications 3 Generic Name Dose Route Start Last Admin Trade Name Reyna PRN Reason Stop Dose Admin Daptomycin 425 mg/ Sodium 108.5 mls @ 200 mls/hr 10/30/16 14:30 11/03/16 09: 39 Chloride IV Daily Day #7 108.5 mls Subjective: patient still with pain at proximal portion of sternal wound Objective: Vital Signs Temp Pulse Resp BP Pulse Ox 36.9 C 80 16 125/64 H 94 11/05/16 11:08 11/05/16 11:08 11/05/16 11:08 11/05/16 11:08 11/05/16 11:08 Microbiology 10/30/16 13:06 Gram Stain - Final Breast - Eswab 10/29/16 14:07 Gram Stain - Final Chest - Eswab Anaerobic Culture - Final Staphylococcus Aureus 10/30/16 15:00 Blood Culture - Final Blood 10/30/16 15:00 Blood Culture - Final Blood Laboratory Results 11/05/16 06:30 11/05/16 06:30 11/04/16 11/05/16 11/06/16 05:59 05:59 05:59 Intake Total 950 1200 Output Total 1365 1450 Balance -415 -250 C-Reactive Protein 34.7 mg/L (<10.0) H 11/03/16 09:50 Gen : nontoxic appearing woman NAD MMM CV: RRR Chest: clear B, proxim portion of sternal incision with faint erythema, worse on L, tender to palpation RUE PICC c/d/i ICD10 Worksheet Patient Problems: Problems Problem Status Onset ASTRID (acute kidney injury) Acute Cellulitis Acute Breast cancer Chronic CAD, multiple vessel Chronic COPD (chronic obstructive pulmonary disease) Chronic Carotid artery disease Chronic FH: CABG (coronary artery bypass surgery) Chronic History of mastectomy Chronic History of nephrectomy, unilateral Chronic Hyperlipemia Chronic Hypertension 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
--- NOTE | 2016-11-05 15:59 | PDIAF ---
- Diagnosis Diagnosis: MSSA bacteremia and wound infection Code Status: Full Code - Medication Management Discharge Medications: Medications to Continue on Transfer Anastrozole [Arimidex 1 mg (*)] 1 mg PO DAILY 08/11/16 [Last Taken 10/26/16] Aspirin EC [Aspirin EC 81 mg (*)] 81 mg PO DAILY 08/11/16 [Last Taken 10/26/16] Cyanocobalamin [Vitamin B12 (*)] 5,000 mcg PO DAILY 08/11/16 [Last Taken ] Denosumab [Prolia] 60 mg SQ Q180D 08/11/16 [Last Taken 07/28/16] Fluticasone Nasal [Flonase Nasal [place]] 1 sprays NASAL DAILY 08/11/16 [Last Taken 10/24/16] Fluticasone/Salmeter 250/50Mcg [Advair 250/50 (*)] 1 puffs IH BID 08/11/16 [ Last Taken 10/26/16] Omeprazole 40 mg PO DAILY 08/11/16 [Last Taken 10/26/16] Tiotropium [place] [Spiriva Respimat] 5 mcg IH DAILY 08/11/16 [Last Taken ] Acetaminophen [Tylenol 325mg (*)] 650 mg PO Q4 PRN #0 tab 08/17/16 [Last Taken 10/26/16] Metoprolol Tartrate [Lopressor 25 mg (*)] 12.5 mg PO BID #30 tab 08/17/16 [Last Taken 10/26/16] Albuterol [Ventolin Hfa Inhaler] 2 puffs IH QID PRN #1 mdi 09/12/16 [Last Taken 10/26/16] Amlodipine Besylate 5 mg PO DAILY 10/12/16 [Last Taken 10/26/16] Furosemide [Lasix 20 MG (*)] 20 mg PO MOWEFR@10/12/16 [Last Taken 10/25/16] traMADol [Ultram 50 mg (*)] 50 mg PO Q4HRS PRN #30 tab 10/13/16 [Last Taken ] Alirocumab [Praluent Syringe] 75 mg SQ Q14D 10/26/16 [Last Taken 10/25/16] Venlafaxine HCl [Venlafaxine HCl ER] 37.5 mg PO DAILY 10/26/16 [Last Taken 10/25] Barrel Lapper Antibiotics: daptomycin 425 mg IV daily [facility] Antibiotic Stop Date: 12/11/16 Discharge Medications: Refer to the Discharge Home Medication list for PRN reason. - Labs/Radiology CBC Date: 11/08/16 (weekly Tuesday) CMP Date: 11/08/16 (weekly Tuesday) CRP Date: 11/08/16 Call or Fax Lab and Imaging Results to: [id number] Dr Silva - Follow Up Care Current Providers and Referrals: Charbel Silva MD [Medical Doctor] - 11/15/16 1:30 pm Hollie Quiñones MD [Primary Care Provider] -
--- NOTE | 2016-11-05 16:38 | PDIAF ---
- Diagnosis Diagnosis: MSSA bacteremia and wound infection Code Status: Full Code - Medication Management Discharge Medications: Medications to Continue on Transfer Anastrozole [Arimidex 1 mg (*)] 1 mg PO DAILY 08/11/16 [Last Taken 10/26/16] Aspirin EC [Aspirin EC 81 mg (*)] 81 mg PO DAILY 08/11/16 [Last Taken 10/26/16] Cyanocobalamin [Vitamin B12 (*)] 5,000 mcg PO DAILY 08/11/16 [Last Taken ] Denosumab [Prolia] 60 mg SQ Q180D 08/11/16 [Last Taken 07/28/16] Fluticasone Nasal [Flonase Nasal [place]] 1 sprays NASAL DAILY 08/11/16 [Last Taken 10/24/16] Fluticasone/Salmeter 250/50Mcg [Advair 250/50 (*)] 1 puffs IH BID 08/11/16 [ Last Taken 10/26/16] Omeprazole 40 mg PO DAILY 08/11/16 [Last Taken 10/26/16] Tiotropium [place] [Spiriva Respimat] 5 mcg IH DAILY 08/11/16 [Last Taken ] Acetaminophen [Tylenol 325mg (*)] 650 mg PO Q4 PRN #0 tab 08/17/16 [Last Taken 10/26/16] Metoprolol Tartrate [Lopressor 25 mg (*)] 12.5 mg PO BID #30 tab 08/17/16 [Last Taken 10/26/16] Albuterol [Ventolin Hfa Inhaler] 2 puffs IH QID PRN #1 mdi 09/12/16 [Last Taken 10/26/16] Amlodipine Besylate 5 mg PO DAILY 10/12/16 [Last Taken 10/26/16] Furosemide [Lasix 20 MG (*)] 20 mg PO MOWEFR@10/12/16 [Last Taken 10/25/16] traMADol [Ultram 50 mg (*)] 50 mg PO Q4HRS PRN #30 tab 10/13/16 [Last Taken ] Alirocumab [Praluent Syringe] 75 mg SQ Q14D 10/26/16 [Last Taken 10/25/16] Venlafaxine HCl [Venlafaxine HCl ER] 37.5 mg PO DAILY 10/26/16 [Last Taken 10/25] Patient Relations Coordinator Antibiotics: daptomycin 425 mg IV daily [facility] Antibiotic Stop Date: 12/11/16 Discharge Medications: Refer to the Discharge Home Medication list for PRN reason. PICC Care - Routine: Yes - Labs/Radiology CBC Date: 11/15/16 (weekly Tuesday) CMP Date: 11/15/16 (weekly Tuesday) CRP Date: 11/15/16 (weekly Tuesday) CPK Date: 11/15/16 Call or Fax Lab and Imaging Results to: [id number] Dr Silva - Follow Up Care Current Providers and Referrals: Charbel Silva MD [Medical Doctor] - 11/15/16 1:30 pm Hollie Quiñones MD [Primary Care Provider] -
[2016-11-05] MEDS: traMADol 50 MG TAB PO PRN (22:30)
[2016-11-06 05:29] LABS: ANION GAP 8 mEq/L (8-16); CARBON DIOXIDE 28 mEq/l (22-31); CHLORIDE 103 mEq/L (97-110); CREATININE 1.5 mg/dL (0.6-1.0); GLOMERULAR FILTRATION RATE 34; GLUCOSE 88 mg/dL (70-100); SODIUM 139 mEq/L (134-144)
[2016-11-06] MEDS: TIOTROPIUM BROMIDE 5 MCG IH SCH (08:30)
[2016-11-06] MEDS: FLUTICASONE/SALMETER 250/50MCG DISKUS IH SCH ×2 (08:30→21:17)
[2016-11-06] MEDS: ASPIRIN EC 81 MG TAB PO SCH (08:52)
[2016-11-06] MEDS: CYANO/VITAMIN B12 1000 MCG TAB PO SCH ×2 (08:53→09:04)
[2016-11-06] MEDS: VENLAFAXINE XR 37.5 MG CAP PO SCH (08:54)
[2016-11-06] MEDS: amLODIPine BESYLATE 5 MG TAB PO SCH (08:54)
[2016-11-06] MEDS: ENOXAPARIN 40 MG/0.4 ML SYR SC SCH (08:55)
[2016-11-06] MEDS: OMEPRAZOLE 40MG PO SCH (09:01)
[2016-11-06] MEDS: NS IV SCH (09:15)
[2016-11-06] MEDS: ANASTROZOLE 1 MG TAB PO SCH (09:15)
[2016-11-06] MEDS: DAPTOMYCIN IV SCH (09:15)
[2016-11-06] MEDS: METOPROLOL TARTRATE 25 MG TAB PO SCH ×3 (09:15→20:41)
[2016-11-06] MEDS: FLUTICASONE NASAL 120 SPRAYS/16 GM MDI EACHNARE SCH (09:22)
--- NOTE | 2016-11-06 11:26 | SOAPPROG ---
SOAP Progress Note Assessment/Plan: Assessment: POD#8 sternal wound debridement, vac placement POD#7: Explantation of left breast implant, drain placement D7 IV daptomycin per RUE PICC. Upper sternal cellulitis - Associated with MSSA subcutaneous abscess extending to bilateral breast implants and bacteremia. No evidence deep infection. Now s/ p staged debridement, incl left breast implant removal. Need for rt breast implant removal as yet unclear. Plastics to assist with chest reconstruction if more extensive debridement undertaken. Targetted Abx per ID. Repeat blood cxs neg. New PICC placed. ASTRID - Single kidney w baseline Cr 0.8-1.0. Admit Cr 1.8, likely prerenal ( relative dehydration and hypotension) secondary to infection. Near normalization w supportive care, now fluctuating btwn 1.1-1.5. Monitored. Stable CAD - Off tele. Plan: Cont BID W to D dressings. Watchful monitoring. Vac holiday for now. Plan resumed use at discharge (x3-4wks) to help with stability midline diastasis. Dispo - Possibly home 11/06/16 10:23 Subjective: Hanging in there. Nothing new to report. Objective: Vital Signs Temp Pulse Resp BP Pulse Ox 36.9 C 84 16 138/77 H 98 11/06/16 07:41 11/06/16 08:32 11/06/16 08:32 11/06/16 07:41 11/06/16 08:32 Microbiology 10/30/16 13:06 Gram Stain - Final Breast - Eswab 10/29/16 14:07 Gram Stain - Final Chest - Eswab Anaerobic Culture - Final Staphylococcus Aureus 10/30/16 15:00 Blood Culture - Final Blood 10/30/16 15:00 Blood Culture - Final Blood Laboratory Results 11/05/16 06:30 11/06/16 04:55 11/05/16 11/06/16 11/07/16 05:59 05:59 05:59 Intake Total 1200 610 Output Total 1450 2550 Balance -250 -1940 afebrile Physical Exam - Physical Exam General Appearance: alert, no apparent distress Respiratory: lungs clear Cardiac/Chest: regular rate, rhythm, other (Open sternal wound with faint localized erythema, no induration. Exposed tissue clean and moist. 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
--- NOTE | 2016-11-06 11:55 | PCMIDPN ---
Assessment/Plan: # MSSA bacteremia, sternal wound soft tissue infection extending to L breast implant s/p explantation and debridement of wound 10/30. Today noticeable improvement in erythema. blood cx 10/30 negative --IV daptomycin through 12/11/16; interagency completed, f/u Dr Silva scheduled --wound vac at home --no further imaging or debridement at this point, continue close clinical monitoring, high risk # Renal insufficiency, Cr fluctuating form 1.1 to 1.5 Medications Daptomycin IV 425 gm #8 Subjective: no specific c/o other than some discomfort associated with sternal wound no diarrhea no rash Objective: Vital Signs Temp Pulse Resp BP Pulse Ox 36.9 C 84 16 138/77 H 98 11/06/16 07:41 11/06/16 08:32 11/06/16 08:32 11/06/16 07:41 11/06/16 08:32 Microbiology 10/30/16 13:06 Gram Stain - Final Breast - Eswab 10/29/16 14:07 Gram Stain - Final Chest - Eswab Anaerobic Culture - Final Staphylococcus Aureus 10/30/16 15:00 Blood Culture - Final Blood 10/30/16 15:00 Blood Culture - Final Blood Laboratory Results 11/05/16 06:30 11/06/16 04:55 11/05/16 11/06/16 11/07/16 05:59 05:59 05:59 Intake Total 1200 610 Output Total 1450 2550 Balance -250 -1940 C-Reactive Protein 34.7 mg/L (<10.0) H 11/03/16 09:50 Gen: no toxic woman, fluent speech o/p MMM Chest: open sternal wound, erythema proximal end significantly faded, obvious movement of sternum with respirations, no purulent material but some scant nonv- viable debris L>R side of wound. 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
[2016-11-06] MEDS: ACETAMINOPHEN 325 MG TAB PO PRN ×2 (17:55→22:01)
[2016-11-07] MEDS: NS IV SCH (10:00)
[2016-11-07] MEDS: ENOXAPARIN 40 MG/0.4 ML SYR SC SCH (10:00)
[2016-11-07] MEDS: DAPTOMYCIN IV SCH (10:00)
[2016-11-07] MEDS: CYANO/VITAMIN B12 1000 MCG TAB PO SCH (10:01)
[2016-11-07] MEDS: ASPIRIN EC 81 MG TAB PO SCH (10:01)
[2016-11-07] MEDS: ANASTROZOLE 1 MG TAB PO SCH (10:01)
[2016-11-07] MEDS: amLODIPine BESYLATE 5 MG TAB PO SCH (10:01)
[2016-11-07] MEDS: METOPROLOL TARTRATE 25 MG TAB PO SCH ×2 (10:01→20:54)
[2016-11-07] MEDS: VENLAFAXINE XR 37.5 MG CAP PO SCH (10:01)
[2016-11-07] MEDS: FLUTICASONE NASAL 120 SPRAYS/16 GM MDI EACHNARE SCH (10:02)
[2016-11-07] MEDS: OMEPRAZOLE 40MG PO SCH (10:03)
[2016-11-07] MEDS: FLUTICASONE/SALMETER 250/50MCG DISKUS IH SCH ×2 (10:07→21:18)
[2016-11-07] MEDS: TIOTROPIUM BROMIDE 5 MCG IH SCH (10:07)
--- NOTE | 2016-11-07 14:26 | PCMIDPN ---
Assessment/Plan: # MSSA bacteremia, sternal wound soft tissue infection extending to L breast implant s/p explantation and debridement of wound 10/30. Also with dehiscence of sternum. Today with worsening erythema, spontaneous drainage from L breast wound but AF. blood cx 10/30 negative --IV daptomycin through 12/11/16; interagency completed, f/u Dr Silva scheduled --worsening exam, start with repeat CT scan without contrast (Cr 1.5) to evaluate for un-drained abscess --recheck labs in AM # Renal insufficiency, Cr fluctuating form 1.1 to 1.5 Medications Daptomycin IV 425 gm #9 Subjective: c/o drainage over night +NS malaise doesn't feel like eating Objective: Vital Signs Temp Pulse Resp BP Pulse Ox 36.8 C 79 16 142/79 H 97 11/07/16 08:07 11/07/16 10:12 11/07/16 10:12 11/07/16 08:07 11/07/16 10:12 Laboratory Results 11/05/16 06:30 11/06/16 04:55 11/06/16 11/07/16 11/08/16 05:59 05:59 05:59 Intake Total 610 250 300 Output Total 2550 2200 950 Balance -1940 -1950 -650 C-Reactive Protein 34.7 mg/L (<10.0) H 11/03/16 09:50 Gen: no toxic woman, fluent speech o/p MMM Chest: open sternal wound, erythema proximal end, worse than yesterday extending to L axilla, obvious movement of sternum with respirations, no purulent material but some scant non-viable debris L>R side of wound. No fluctuance detected Drain site L chest wall without abn CV: RRR RUE PICC c/d/i Skin: no rash other than described associated w/ wound - Time Spent With Patient Time Spent with Patient: greater than 35 minutes (reviewed plans with Dr. Villaseñor ; educatin oand counseling of patient and daughter at bedside for further w/u) Time Spent with Patient: Greater than 35 minutes spent on this patients care, greater than 50% of time spent counseling, educating, and coordinating care regarding the above mentioned plan. 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
--- NOTE | 2016-11-07 15:03 | SOAPPROG ---
SOAP Progress Note Assessment/Plan: Assessment: POD#9 sternal wound debridement, vac placement POD#8: Explantation of left breast implant, drain placement D8 IV daptomycin per [facility]. Upper sternal cellulitis - Associated with MSSA bacteremia and subcutaneous abscess extending to bilateral breast implants. No evidence deep infection. Favorable clinical response to staged debridement and targetted Abx, until last night. Now with recurrent malaise and profuse drainage from left surgical site. CT scan ordered. ASTRID - Single kidney w baseline Cr 0.8-1.0. Admit Cr 1.8, likely prerenal ( relative dehydration and hypotension) secondary to infection. Near normalization w supportive care, recently fluctuating btwn 1.1-1.5. Monitored. Stable CAD - Off tele. Plan: Cont BID W to D dressings centrally. Absorbent gauze pad to left breast w change prn saturation. Await results repeat CT. Suspect will need further debridement. Dispo - [facility] when appropriate. 11/07/16 14:32 Subjective: Restless night, awoken several times by soaked gown or sheets from left breast incision. In retrospect, started feeling fatigued and achey yesterday afternoon. Noticed sweaty sensation left armpit while out for a walk and now believes it was probably incisional drainage. Objective: Vital Signs Temp Pulse Resp BP Pulse Ox 36.8 C 79 16 142/79 H 97 11/07/16 08:07 11/07/16 10:12 11/07/16 10:12 11/07/16 08:07 11/07/16 10:12 Laboratory Results 11/05/16 06:30 11/06/16 04:55 11/06/16 11/07/16 11/08/16 05:59 05:59 05:59 Intake Total 610 250 300 Output Total 2550 2200 950 Balance -1940 -1950 -650 Afeb. HR controlled. SBP 120s-140s. Good UOP. Physical Exam - Physical Exam General Appearance: alert, no apparent distress Respiratory: lungs clear Cardiac/Chest: regular rate, rhythm, other (Inc erythema upper pole sternotomy, extending to rt. Left breast incision CDI. Central wound moist but not actively draining. Inferior aspect towards drain site palpably fluctuant. Drain site closed w dry eschar. 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
[2016-11-07] MEDS: traMADol 50 MG TAB PO PRN ×2 (18:17→22:05)
[2016-11-07 18:54] LABS: COLOR PALE YELLOW; LEUKOCYTE ESTERASE,URINE NEGATIVE (NEGATIVE); NITRITE,URINE NEGATIVE (NEGATIVE)
[2016-11-08 06:20] LABS: % IMMATURE GRANULYOCYTES 0.6 % (0.0-1.1); ABSOLUTE IMMATURE GRANULOCYTES 0.03 10^3/uL (0.00-0.10); ADD DIFF? NO; ADD MORPH? NO; ADD SCAN? NO; ATYPICAL LYMPHOCYTE FLAG 0 (0-99); FRAGMENT RBC FLAG 0 (0-99); HEMOGLOBIN 8.9 g/dL (12.6-16.3); LEFT SHIFT FLG 0 (0-99); LIPEMIA HEMOLYSIS FLAG 80 (0-99); MEAN CELL HEMOGLOBIN 31.8 pg (27.9-34.1); MEAN CELL HEMOGLOBIN CONCENTR. 31.8 g/dL (32.4-36.7); MEAN PLATELET VOLUME 9.8 fL (8.7-11.7); PLATELET CLUMPS FLAG 0 (0-99); PLATELET COUNT 220 10^3/uL (150-400); RED CELL DISTRIBUTION WIDTH 14.7 % (11.5-15.2)
[2016-11-08 06:39] LABS: ALANINE AMINOTRANSFERASE 42 IU/L (9-52); ALKALINE PHOSPHATASE 165 IU/L (38-126); ANION GAP 8 mEq/L (8-16); ASPARTATE AMINOTRANSFERASE 36 IU/L (14-46); BILIRUBIN,TOTAL 0.4 mg/dL (0.1-1.4); C-REACTIVE PROTEIN 17.2 mg/L (<10.0); CARBON DIOXIDE 28 mEq/l (22-31); CHLORIDE 102 mEq/L (97-110); CREATININE 1.6 mg/dL (0.6-1.0); GLOMERULAR FILTRATION RATE 32; GLUCOSE 80 mg/dL (70-100); POTASSIUM 3.8 mEq/L (3.5-5.2); SODIUM 138 mEq/L (134-144); TOTAL PROTEIN 5.8 g/dL (6.3-8.2)
[2016-11-08] MEDS: FLUTICASONE/SALMETER 250/50MCG DISKUS IH SCH ×2 (08:12→19:31)
[2016-11-08] MEDS: TIOTROPIUM BROMIDE 5 MCG IH SCH (08:12)
[2016-11-08] MEDS: DAPTOMYCIN IV SCH (09:14)
[2016-11-08] MEDS: NS IV SCH (09:14)
[2016-11-08] MEDS: ASPIRIN EC 81 MG TAB PO SCH (09:15)
[2016-11-08] MEDS: CYANO/VITAMIN B12 1000 MCG TAB PO SCH (09:15)
[2016-11-08] MEDS: amLODIPine BESYLATE 5 MG TAB PO SCH (09:15)
[2016-11-08] MEDS: VENLAFAXINE XR 37.5 MG CAP PO SCH (09:15)
[2016-11-08] MEDS: METOPROLOL TARTRATE 25 MG TAB PO SCH ×2 (09:16→20:56)
[2016-11-08] MEDS: FLUTICASONE NASAL 120 SPRAYS/16 GM MDI EACHNARE SCH (09:16)
[2016-11-08] MEDS: ANASTROZOLE 1 MG TAB PO SCH (09:16)
[2016-11-08] MEDS: OMEPRAZOLE 40MG PO SCH (09:17)
[2016-11-08] MEDS: ENOXAPARIN 40 MG/0.4 ML SYR SC SCH (09:18)
--- NOTE | 2016-11-08 11:17 | SOAPPROG ---
SOAP Progress Note Assessment/Plan: Assessment: POD#10 sternal wound debridement, vac placement. Vac holiday since POD#5. POD#9: Explantation of left breast implant, drain placement D9 IV daptomycin per [facility]. Upper sternal cellulitis - Associated with MSSA bacteremia and subcutaneous abscess extending to bilateral breast implants. No evidence deep infection. Favorable clinical response to staged debridement and targetted Abx, until POD# 9 when recurrent malaise and profuse spontaneous drainage from left surgical site. CT scan sugg left seroma w overlying cellulitis, no new or worsened inflammatory changes. ASTRID - Single kidney w baseline Cr 0.8-1.0. Admit Cr 1.8, likely prerenal ( relative dehydration and hypotension) secondary to infection. Near normalization w supportive care, recently fluctuating btwn 1.1-1.5. Monitored. Stable CAD - Off tele. Plan: Cont BID W to D dressings centrally. Absorbent gauze pad to left breast w change prn saturation. Re-involve plastic surgery. Suspect may need more extensive left capsular debridement. Dispo - [facility] when appropriate. 11/08/16 10:44 Subjective: Doing ok. Slept well. Less drainage from left breast site. Objective: Vital Signs Temp Pulse Resp BP Pulse Ox 36.8 C 80 16 127/73 H 94 11/08/16 08:46 11/08/16 08:46 11/08/16 08:46 11/08/16 08:46 11/08/16 08:46 Microbiology 10/30/16 13:06 Gram Stain - Final Breast - Eswab Anaerobic Culture - Final Staphylococcus Aureus Laboratory Results 11/08/16 06:05 11/08/16 06:05 11/07/16 11/08/16 11/09/16 05:59 05:59 05:59 Intake Total 250 1000 Output Total 2200 1350 Balance -1950 -350 Afeb. WBC ok. Left breast less fluctuant. Physical Exam - Physical Exam General Appearance: alert, no apparent distress Respiratory: lungs clear Cardiac/Chest: regular rate, rhythm, other (Stable, ?less erythema prox sternotomy. Left breast incision CDI, Surrounding area soft, no longer fluctuant. Dressing no staining. 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
[2016-11-08] MEDS ORDERED: ALIROCUMAB 75 MG SQ SCH (12:15)
[2016-11-08] MEDS: traMADol 50 MG TAB PO PRN ×2 (14:34→21:00)
--- NOTE | 2016-11-08 18:17 | PCMIDPN ---
Assessment/Plan: Assessment/Plan: * MSSA bacteremia and sternal wound infection/abscess with involvement of left breast implant status post incision and drainage of abscess and removal of breast implant: Bacteremia has cleared. Left breast incisional discharge and tenderness decreased today. Mild erythema persists at upper sternal region. Continue daptomycin. Will continue daily for now as creatinine clearance approximately 30. Agree with plans for plastic surgery evaluation. 11/08/16 18:14 Subjective: Drainage from left breast incision has stopped today. Less tender. Mild tenderness over right upper chest. Objective: Vital Signs Temp Pulse Resp BP Pulse Ox 36.8 C 80 13 127/68 H 94 11/08/16 16:10 11/08/16 16:10 11/08/16 16:10 11/08/16 16:10 11/08/16 16:10 Microbiology 10/30/16 13:06 Gram Stain - Final Breast - Eswab Anaerobic Culture - Final Staphylococcus Aureus Laboratory Results 11/08/16 06:05 11/08/16 06:05 11/07/16 11/08/16 11/09/16 05:59 05:59 05:59 Intake Total 250 1000 Output Total 2200 1350 500 Balance -1950 -350 -500 C-Reactive Protein 17.2 mg/L (<10.0) H 11/08/16 06:05 Daptomycin # 10 CT chest within residual thin fluid collection on left; fluid adjacent to right breast implant without change - Physical Exam General Appearance: alert, no apparent distress EENT: pharynx normal, No conjunctival petechiae Respiratory: lungs clear, No respiratory distress Cardiac/Chest: regular rate, rhythm, other (Mild erythema which is eugene in quality along superior incision; left breast incision without active drainage or erythema; tenderness decreased; right breast without erythema or increased warmth), No systolic murmur Abdomen: non-tender, No distended ICD10 Worksheet Patient Problems: Problems Problem Status Onset ASTRID (acute kidney injury) Acute Cellulitis Acute Breast cancer Chronic CAD, multiple vessel Chronic COPD (chronic obstructive pulmonary disease) Chronic Carotid artery disease Chronic FH: CABG (coronary artery bypass surgery) Chronic History of mastectomy Chronic History of nephrectomy, unilateral Chronic Hyperlipemia Chronic Hypertension 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
[2016-11-09] MEDS: FLUTICASONE/SALMETER 250/50MCG DISKUS IH SCH ×2 (09:07→20:15)
[2016-11-09] MEDS: TIOTROPIUM BROMIDE 5 MCG IH SCH (09:08)
[2016-11-09] MEDS: DAPTOMYCIN IV SCH (10:01)
[2016-11-09] MEDS: NS IV SCH (10:01)
[2016-11-09] MEDS: ENOXAPARIN 30 MG/0.3 ML SYR SC SCH (10:02)
[2016-11-09] MEDS: amLODIPine BESYLATE 5 MG TAB PO SCH (10:02)
[2016-11-09] MEDS: ASPIRIN EC 81 MG TAB PO SCH (10:03)
[2016-11-09] MEDS: ANASTROZOLE 1 MG TAB PO SCH (10:03)
[2016-11-09] MEDS: CYANO/VITAMIN B12 1000 MCG TAB PO SCH (10:03)
[2016-11-09] MEDS: VENLAFAXINE XR 37.5 MG CAP PO SCH (10:03)
[2016-11-09] MEDS: FLUTICASONE NASAL 120 SPRAYS/16 GM MDI EACHNARE SCH (10:04)
[2016-11-09] MEDS: METOPROLOL TARTRATE 25 MG TAB PO SCH ×2 (10:04→21:19)
[2016-11-09] MEDS: OMEPRAZOLE 40MG PO SCH (10:04)
[2016-11-09] MEDS: traMADol 50 MG TAB PO PRN ×3 (10:17→21:19)
--- NOTE | 2016-11-09 13:05 | SOAPPROG ---
SOAP Progress Note Assessment/Plan: POD#11 sternal wound debridement, vac placement. Vac holiday since POD#5. POD#10: Explantation of left breast implant, drain placement D11 IV daptomycin per [facility]. Upper sternal cellulitis - Associated with MSSA bacteremia and subcutaneous abscess extending to bilateral breast implants. No evidence deep infection. Favorable clinical response to staged debridement and targetted Abx, until POD# 9 when recurrent malaise and profuse spontaneous drainage from left surgical site. CT scan sugg left seroma w overlying cellulitis, no new or worsened inflammatory changes. Vac placed to sternal wound this AM and lateral pole of left chest incision opened with further serous drainage. Plan for home/SNF placement in the next day. ABX as per ID. ASTRID - Single kidney w baseline Cr 0.8-1.0. Admit Cr 1.8, likely prerenal ( relative dehydration and hypotension) secondary to infection. Near normalization w supportive care, recently fluctuating btwn 1.1-1.6. Monitor. Stable CAD - Off tele. Subjective: Feels better. Denies fevers/chills/N/V/abdominal pain. Does not want to go home pending discharge. Objective: Vital Signs Temp Pulse Resp BP Pulse Ox 36.8 C 81 16 108/61 97 11/09/16 07:38 11/09/16 09:00 11/09/16 09:00 11/09/16 07:38 11/09/16 09:00 Laboratory Results 11/08/16 06:05 11/08/16 06:05 11/08/16 11/09/16 11/10/16 05:59 05:59 05:59 Intake Total 1000 350 Output Total 1350 900 800 Balance -350 -550 -800 Physical Exam - Physical Exam General Appearance: alert, no apparent distress, obese EENT: No scleral icterus (R), No scleral icterus (L) Neck: normal inspection Respiratory: No respiratory distress Cardiac/Chest: regular rate, rhythm, other (sternal wound open with serous drainage and healthy pink granulation tissue and minimal fibrous exudate / skin surrounding sternum with mild erythema / left chest incision C/D/I with serous drainage) Abdomen: non-tender, soft Skin: normal color, warm/dry Extremities: No pedal edema Neuro/Psych: no motor/sensory deficits, alert, normal mood/affect, oriented x 3 ICD10 Worksheet Patient Problems: Problems Problem Status Onset ASTRID (acute kidney injury) Acute Cellulitis Acute Breast cancer Chronic CAD, multiple vessel Chronic COPD (chronic obstructive pulmonary disease) Chronic Carotid artery disease Chronic FH: CABG (coronary artery bypass surgery) Chronic History of mastectomy Chronic History of nephrectomy, unilateral Chronic Hyperlipemia Chronic Hypertension 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
[2016-11-10 07:14] LABS: ANION GAP 9 mEq/L (8-16); CALCIUM 9.2 mg/dL (8.5-10.4); CARBON DIOXIDE 28 mEq/l (22-31); CHLORIDE 103 mEq/L (97-110); CREATININE 1.4 mg/dL (0.6-1.0); GLOMERULAR FILTRATION RATE 37; GLUCOSE 85 mg/dL (70-100); POTASSIUM 4.2 mEq/L (3.5-5.2); SODIUM 140 mEq/L (134-144)
[2016-11-10] MEDS: TIOTROPIUM BROMIDE 5 MCG IH SCH (09:39)
[2016-11-10] MEDS: FLUTICASONE/SALMETER 250/50MCG DISKUS IH SCH ×2 (09:39→21:06)
[2016-11-10] MEDS: ANASTROZOLE 1 MG TAB PO SCH (09:40)
[2016-11-10] MEDS: CYANO/VITAMIN B12 1000 MCG TAB PO SCH (09:40)
[2016-11-10] MEDS: ASPIRIN EC 81 MG TAB PO SCH (09:40)
[2016-11-10] MEDS: traMADol 50 MG TAB PO PRN ×3 (09:40→22:16)
[2016-11-10] MEDS: VENLAFAXINE XR 37.5 MG CAP PO SCH (09:40)
[2016-11-10] MEDS: NS IV SCH (09:43)
[2016-11-10] MEDS: DAPTOMYCIN IV SCH (09:43)
[2016-11-10] MEDS: METOPROLOL TARTRATE 25 MG TAB PO SCH ×2 (09:44→20:06)
[2016-11-10] MEDS: amLODIPine BESYLATE 5 MG TAB PO SCH (09:44)
[2016-11-10] MEDS: ENOXAPARIN 30 MG/0.3 ML SYR SC SCH (09:44)
[2016-11-10] MEDS: FLUTICASONE NASAL 120 SPRAYS/16 GM MDI EACHNARE SCH (09:45)
[2016-11-10] MEDS: OMEPRAZOLE 40MG PO SCH (09:56)
[2016-11-10] MEDS: SENNOSIDES/DOCUSATE SODIUM TAB PO PRN (11:11)
--- NOTE | 2016-11-10 11:51 | SOAPPROG ---
SOAP Progress Note Assessment/Plan: Assessment: POD#12 sternal wound debridement, vac placement. Vac holiday POD#5- 11. POD#11: Explantation of left breast implant, drain placement D11 IV daptomycin per [facility] P[facility]. Upper sternal cellulitis - Associated with MSSA bacteremia and subcutaneous abscess extending to bilateral breast implants. No evidence deep infection. Favorable clinical response to staged debridement and targetted Abx, until POD# 9 when recurrent malaise and profuse spontaneous drainage from left surgical site. CT scan sugg left seroma w overlying cellulitis, no new or worsened inflammatory changes. Wound vac replaced yest. Breast incision opened a bit and cont to actively drain. ID willing to switch Dapto to Invanz to facilitate acceptance to SNF. ASTRID - Single kidney w baseline Cr 0.8-1.0. Admit Cr 1.8, likely prerenal ( relative dehydration and hypotension) secondary to infection. Near normalization w supportive care, recently fluctuating btwn 1.1-1.5. Monitored. Stable CAD - Off tele. Plan: Cont wound vac M,W,F. Cont absorbent gauze dressing to left breast incision. Will D/W Dr Villaseñor re-involvement plastic surgery to address left breast seroma. 11/10/16 10:50 Subjective: Doing ok. New rt axillary ache post wound vac placement. Left open breast wound periodically draining lg amount clear fluid. Objective: Vital Signs Temp Pulse Resp BP Pulse Ox 36.6 C 90 16 121/84 H 99 11/10/16 07:52 11/10/16 09:44 11/10/16 09:35 11/10/16 09:44 11/10/16 09:35 Laboratory Results 11/08/16 06:05 11/10/16 06:45 11/09/16 11/10/16 11/11/16 05:59 05:59 05:59 Intake Total 350 900 Output Total 900 1030 900 Balance -550 -130 -900 Afeb. Wound vac good seal. Cr back down to 1.4 Physical Exam - Physical Exam General Appearance: alert, no apparent distress Respiratory: lungs clear Cardiac/Chest: regular rate, rhythm, other (Prox sternotomy with 4cm halo of erythema. Left breast opening 3x1x1 cm. Surrounding area fluctuant. No erythema. Expressible serous drainage. 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
--- NOTE | 2016-11-10 17:39 | SOAPPROG ---
SOAP Progress Note Assessment/Plan: Assessment: infection left chest wall s/p removal of reconstructive implant Plan: Will plan operative exploration of left chest tomorrow at 1500. NPO, consent, hematocrit. Plan capsulectomy, drain and closure of left chest. 10/27/16 18:12 11/10/16 17:37 Subjective: pt is anxious to have her infection treated Objective: Vital Signs Temp Pulse Resp BP Pulse Ox 36.8 C 84 16 108/64 94 11/10/16 15:52 11/10/16 15:52 11/10/16 15:52 11/10/16 15:52 11/10/16 15:52 Laboratory Results 11/08/16 06:05 11/10/16 06:45 11/09/16 11/10/16 11/11/16 05:59 05:59 05:59 Intake Total 350 900 Output Total 900 1030 900 Balance -550 -130 -900 draining left upper chest incision with erythema sternal wound vac in place with out surrounding erythema ICD10 Worksheet Patient Problems: Problems Problem Status Onset ASTRID (acute kidney injury) Acute Cellulitis Acute Breast cancer Chronic CAD, multiple vessel Chronic COPD (chronic obstructive pulmonary disease) Chronic Carotid artery disease Chronic FH: CABG (coronary artery bypass surgery) Chronic History of mastectomy Chronic History of nephrectomy, unilateral Chronic Hyperlipemia Chronic Hypertension 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
--- NOTE | 2016-11-10 18:29 | PCMIDPN ---
Assessment/Plan: Assessment/Plan: * MSSA bacteremia and sternal wound infection/abscess with involvement of left breast implant status post incision and drainage of abscess and removal of breast implant: Bacteremia has cleared. Persistent drainage from left breast incision which now has residual open area after suture removal. Plans for repeat exploration tomorrow by Plastic surgery. Reviewed with Dr. Pena with consideration for right implant removal as well given that fluid tracks adjacent to implant. Will continue daptomycin in interim. Problematic to [facility]apt[facility] so plan to transition to ertapenem which will have excellent activity against MSSA once closer to discharge. 11/10/16 18:22 11/10/16 18:29 Subjective: Patient with persistent drainage from left breast. Complains of tightness in right breast after placement of wound VAC over sternal incision. Objective: Vital Signs Temp Pulse Resp BP Pulse Ox 36.8 C 84 16 108/64 94 11/10/16 15:52 11/10/16 15:52 11/10/16 15:52 11/10/16 15:52 11/10/16 15:52 Laboratory Results 11/08/16 06:05 11/10/16 06:45 11/09/16 11/10/16 11/11/16 05:59 05:59 05:59 Intake Total 350 900 Output Total 900 1030 1300 Balance -550 -130 -1300 C-Reactive Protein 17.2 mg/L (<10.0) H 11/08/16 06:05 Daptomycin # 12 - Physical Exam General Appearance: alert, no apparent distress EENT: No scleral icterus, No conjunctival petechiae Cardiac/Chest: other (Sternotomy with wound VAC in place with mild eugene erythema superiorly; left breast with central opening in incision with serous drainage; right breast mildly tender superiorly without overlying erythema) Abdomen: non-tender, No distended - Line/s RUE PICC Lines: No drainage, No erythema ICD10 Worksheet Patient Problems: Problems Problem Status Onset ASTRID (acute kidney injury) Acute Cellulitis Acute Breast cancer Chronic CAD, multiple vessel Chronic COPD (chronic obstructive pulmonary disease) Chronic Carotid artery disease Chronic FH: CABG (coronary artery bypass surgery) Chronic History of mastectomy Chronic History of nephrectomy, unilateral Chronic Hyperlipemia Chronic Hypertension 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
[2016-11-11] MEDS: traMADol 50 MG TAB PO PRN ×4 (03:01→22:10)
[2016-11-11] MEDS: METOPROLOL TARTRATE 25 MG TAB PO SCH ×2 (08:06→20:07)
[2016-11-11] MEDS: VENLAFAXINE XR 37.5 MG CAP PO SCH (08:06)
[2016-11-11] MEDS: ANASTROZOLE 1 MG TAB PO SCH (08:07)
[2016-11-11] MEDS: OMEPRAZOLE 40MG PO SCH (08:09)
[2016-11-11] MEDS: DAPTOMYCIN IV SCH (08:25)
[2016-11-11] MEDS: NS IV SCH (08:25)
--- NOTE | 2016-11-11 09:44 | SOAPPROG ---
SOAP Progress Note Assessment/Plan: POD#13 sternal wound debridement, vac placement. Vac holiday since POD#5. POD#12: Explantation of left breast implant, drain placement D13 IV daptomycin per [facility]. Upper sternal cellulitis - Associated with MSSA bacteremia and subcutaneous abscess extending to bilateral breast implants. Staged debridement with ABX and continued drainage from left surgical site. Plan today is for wound exploration/ revision/possible d/c of right breast implant with plastics. ASTRID - Single kidney w baseline Cr 0.8-1.0. Admit Cr 1.8 secondary to sepsis. Fluctuating btwn 1.1-1.6. Monitor. Stable CAD - Off tele. 11/11/16 10:54 Subjective: Feels well. Eager for surgery to be done. Concerned right implant is a problem and would like that removed. Objective: Vital Signs Temp Pulse Resp BP Pulse Ox 36.8 C 76 16 112/64 96 11/11/16 07:50 11/11/16 08:06 11/11/16 07:50 11/11/16 08:06 11/11/16 07:50 Laboratory Results 11/10/16 18:27 11/10/16 06:45 11/10/16 11/11/16 11/12/16 05:59 05:59 05:59 Intake Total 900 960 Output Total 1030 1300 Balance -130 -340 Physical Exam - Physical Exam General Appearance: alert, no apparent distress EENT: No scleral icterus (R), No scleral icterus (L) Neck: normal inspection Respiratory: No respiratory distress Cardiac/Chest: regular rate, rhythm Abdomen: soft, No distended Skin: normal color, warm/dry Extremities: No pedal edema Neuro/Psych: no motor/sensory deficits, alert, normal mood/affect, oriented x 3 ICD10 Worksheet Patient Problems: Problems Problem Status Onset ASTRID (acute kidney injury) Acute Cellulitis Acute Breast cancer Chronic CAD, multiple vessel Chronic COPD (chronic obstructive pulmonary disease) Chronic Carotid artery disease Chronic FH: CABG (coronary artery bypass surgery) Chronic History of mastectomy Chronic History of nephrectomy, unilateral Chronic Hyperlipemia Chronic Hypertension 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
[2016-11-11] MEDS ORDERED: GENTAMICIN SULFATE 80 MG/2 ML VIAL ONE (10:15)
[2016-11-11] MEDS ORDERED: LIDOCAINE 1% 30 ML SDV ONE (10:15)
[2016-11-11] MEDS ORDERED: BUPIVACAINE 0.5% 30 ML SDV ONE (10:15)
[2016-11-11] MEDS ORDERED: BACITRACIN 50,000 UNITS/10 ML SYR IRR ONE (10:16)
[2016-11-11] MEDS ORDERED: ceFAZolin 1 GM/5 ML SYR ONE (10:16)
[2016-11-11] MEDS: FLUTICASONE NASAL 120 SPRAYS/16 GM MDI EACHNARE SCH (10:40)
[2016-11-11] MEDS: CYANO/VITAMIN B12 1000 MCG TAB PO SCH (10:40)
[2016-11-11] MEDS: ENOXAPARIN 30 MG/0.3 ML SYR SC SCH (10:40)
[2016-11-11] MEDS: amLODIPine BESYLATE 5 MG TAB PO SCH (10:41)
[2016-11-11] MEDS: TIOTROPIUM BROMIDE 5 MCG IH SCH (10:51)
[2016-11-11] MEDS: FLUTICASONE/SALMETER 250/50MCG DISKUS IH SCH ×2 (10:51→22:23)
--- NOTE | 2016-11-11 10:57 | PCMIDPN ---
Assessment/Plan: Assessment/Plan: * MSSA bacteremia and sternal wound infection/abscess with involvement of left breast implant status post incision and drainage of abscess and removal of breast implant: Left breast exploration plan for today by Plastic surgery with possible removal of right implant as well. Findings and plan were reviewed with the patient. Continue daptomycin. Check CBC, CMP and CPK on long-term antibiotics in a.m.. 11/11/16 10:55 Subjective: Patient with mild bilateral breast pain, right sided pain present superiorly. Objective: Vital Signs Temp Pulse Resp BP Pulse Ox 36.8 C 76 16 112/64 96 11/11/16 07:50 11/11/16 08:06 11/11/16 07:50 11/11/16 08:06 11/11/16 07:50 Laboratory Results 11/10/16 18:27 11/10/16 06:45 11/10/16 11/11/16 11/12/16 05:59 05:59 05:59 Intake Total 900 960 Output Total 1030 1300 Balance -130 -340 C-Reactive Protein 17.2 mg/L (<10.0) H 11/08/16 06:05 Daptomycin # 13 - Physical Exam General Appearance: alert, no apparent distress EENT: pharynx normal Cardiac/Chest: other (Wound VAC in place over sternum; mild erythema superiorly ; left chest wall breast incision with serous drainage and no erythema; right breast implant mildly tender superiorly without erythema) Abdomen: non-tender, No distended - Line/s RUE PICC Lines: No drainage, No erythema ICD10 Worksheet Patient Problems: Problems Problem Status Onset ASTRID (acute kidney injury) Acute Cellulitis Acute Breast cancer Chronic CAD, multiple vessel Chronic COPD (chronic obstructive pulmonary disease) Chronic Carotid artery disease Chronic FH: CABG (coronary artery bypass surgery) Chronic History of mastectomy Chronic History of nephrectomy, unilateral Chronic Hyperlipemia Chronic Hypertension 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
[2016-11-11] MEDS ORDERED: MIDAZOLAM 2 MG/2 ML VIAL ONE (14:55)
[2016-11-11] MEDS ORDERED: fentaNYL 250 MCG/5 ML INJ ONE (15:00)
[2016-11-11] MEDS ORDERED: PROPOFOL/EMULSION 500 MG/50 ML BOTTLE IV ONE (15:00)
[2016-11-11] MEDS ORDERED: SUGAMMADEX SODIUM 200 MG/2 ML VIAL IVP ONE (16:09)
[2016-11-11] MEDS ORDERED: fentaNYL 100 MCG/2 ML INJ ONE (17:22)
[2016-11-11] MEDS: ACETAMINOPHEN 325 MG TAB PO PRN (20:05)
[2016-11-11] MEDS: SENNOSIDES/DOCUSATE SODIUM TAB PO PRN (20:12)
--- NOTE | 2016-11-11 21:00 | GOP ---
DATE OF OPERATION: 11/11/2016 SURGEON: Trent Pena Jr., MD AERIAL LINEMAN: Yomi Diaz CST, by surgeon request (skilled assembler surgical garment was necessary due to the technique complexity of the case and desire to minimize the anesthesia time). ANESTHESIA: General inhalational anesthetic. ANESTHESIOLOGIST: Ailyn Valenzuela MD PREOPERATIVE DIAGNOSIS: 1. 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 2. Infection, left chest wall, status post explant of reconstructive breast implant. 3. Right periprosthetic fluid. 4. History of breast cancer with bilateral mastectomy. 5. History of cardiovascular atherosclerotic heart disease with 4 vessel CABG. POSTOPERATIVE DIAGNOSIS: 1. 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 2. Infection, left chest wall, status post explant of reconstructive breast implant. 3. Right periprosthetic fluid. 4. History of breast cancer with bilateral mastectomy. 5. History of cardiovascular atherosclerotic heart disease with 4 vessel CABG. PROCEDURE PERFORMED: 1. Bilateral complete capsulectomy. 2. Removal right reconstructive implant. 3. Irrigation and debridement, left chest wall infection with resection of skin, muscle, and fat. 4. Adjacent tissue transfer, left chest wall, for defect approximately 30 x 10 cm. FINDINGS: ESTIMATED BLOOD LOSS: 75 cc. INDICATIONS: The patient is a delightful -[id number] white female who has a history of bila teral mastectomies with implant reconstruction. She was admitted for a 4-vessel coronary artery byp ass procedure at the end of 2015. She developed a sternal wound infection, requiring debridement an d VAC placement. As part of her debridement, the left breast implant was colonized and needed to be removed. She developed a non healing, draining left chest wall wound, and Plastic Surgery was cons ulted to aide in wound closure. DESCRIPTION OF PROCEDURE: After the risks and benefits of the procedure were explained at [facility] to the patient, including bleeding, recurrent infection, and wound breakdown, failure, exposure of the bypass graft, sternal nonunion, respiratory insufficiency, recurrent capsule formation, and n eed for further debridement and closure, formal operative consent was obtained. She was taken to [facility] operating room. After adequate inhalational general anesthesia was provided by Dr. iAlyn valenzuela, she was prepped and draped in normal sterile fashion. The procedure was begun by excising the entire left open chest wall wound. There was purulence and necrotic tissue in the breast capsule an d in the cavity. Extensive fibrosis was noted. A complete capsulectomy was performed with removal of all necrotic and devitalized, infected tissue. Communication with the superior sternal incision was noted. There was no communication appreciated with the area that was still under VAC dressing, and the VAC maintained suction throughout the procedure. The pocket was copiously irrigated with no rmal saline. This left a defect approximately 30 x 10 cm. The skin was too tight to close and requ ired release of inferior and superior musculature to allow advancement and closure of the defect. A 15 round MICHI drain was placed. The pocket was copiously irrigated with normal saline. Meticulous h emostasis was assured. The flaps, superior and inferior flaps were advanced and closed in 3 layers. The right mastectomy incision was then opened, and the reconstructive implant removed. A complete capsulectomy was performed on this side as well. Although no clinical sign of infection existed, a complete capsulectomy was performed to prevent seroma formation and colonization similar to the con tralateral side. A 15 round MICHI drain was again placed, and the incision closed in 3 layers. She to lerated the procedure well without complication. She was extubated in the operating room, taken to the recovery room, awake, and in stable condition. DRAINS: 2 MICHI drains placed. COMPLICATIONS: None. /[id number]/MODL
[2016-11-12] MEDS: traMADol 50 MG TAB PO PRN ×4 (05:20→21:51)
[2016-11-12 05:30] LABS: % IMMATURE GRANULYOCYTES 0.6 % (0.0-1.1); ABSOLUTE IMMATURE GRANULOCYTES 0.03 10^3/uL (0.00-0.10); ADD DIFF? NO; ADD MORPH? NO; ADD SCAN? NO; ATYPICAL LYMPHOCYTE FLAG 10 (0-99); FRAGMENT RBC FLAG 0 (0-99); HEMATOCRIT 26.7 % (38.0-47.0); HEMOGLOBIN 8.6 g/dL (12.6-16.3); LEFT SHIFT FLG 0 (0-99); LIPEMIA HEMOLYSIS FLAG 80 (0-99); MEAN CELL HEMOGLOBIN 32.6 pg (27.9-34.1); MEAN CELL HEMOGLOBIN CONCENTR. 32.2 g/dL (32.4-36.7); MEAN CELL VOLUME 101.1 fL (81.5-99.8); MEAN PLATELET VOLUME 10.7 fL (8.7-11.7); PLATELET CLUMPS FLAG 10 (0-99); PLATELET COUNT 255 10^3/uL (150-400); RED BLOOD CELL COUNT 2.64 10^6/uL (4.18-5.33); RED CELL DISTRIBUTION WIDTH 14.7 % (11.5-15.2)
[2016-11-12 05:45] LABS: ALANINE AMINOTRANSFERASE 74 IU/L (9-52); ALBUMIN 3.1 g/dL (3.5-5.0); ALKALINE PHOSPHATASE 172 IU/L (38-126); ANION GAP 9 mEq/L (8-16); ASPARTATE AMINOTRANSFERASE 71 IU/L (14-46); BILIRUBIN,TOTAL 0.4 mg/dL (0.1-1.4); CALCIUM 9.3 mg/dL (8.5-10.4); CARBON DIOXIDE 26 mEq/l (22-31); CHLORIDE 104 mEq/L (97-110); CREATININE 1.2 mg/dL (0.6-1.0); GLOMERULAR FILTRATION RATE 44; GLUCOSE 143 mg/dL (70-100); POTASSIUM 5.1 mEq/L (3.5-5.2); SODIUM 139 mEq/L (134-144)
[2016-11-12] MEDS: DAPTOMYCIN IV SCH (08:36)
[2016-11-12] MEDS: amLODIPine BESYLATE 5 MG TAB PO SCH (08:36)
[2016-11-12] MEDS: ANASTROZOLE 1 MG TAB PO SCH (08:36)
[2016-11-12] MEDS: NS IV SCH (08:36)
[2016-11-12] MEDS: CYANO/VITAMIN B12 1000 MCG TAB PO SCH (08:37)
[2016-11-12] MEDS: VENLAFAXINE XR 37.5 MG CAP PO SCH (08:37)
[2016-11-12] MEDS: METOPROLOL TARTRATE 25 MG TAB PO SCH ×2 (08:37→22:39)
[2016-11-12] MEDS: OMEPRAZOLE 40MG PO SCH (08:44)
[2016-11-12] MEDS ORDERED: ASPIRIN 81 MG CHEWABLE TAB ONE (08:46)
[2016-11-12] MEDS: FLUTICASONE/SALMETER 250/50MCG DISKUS IH SCH ×2 (09:04→20:23)
[2016-11-12] MEDS: TIOTROPIUM BROMIDE 5 MCG IH SCH (09:05)
--- NOTE | 2016-11-12 10:51 | PCMIDPN ---
Assessment/Plan: 1. MSSA bacteremia/sternal wound infection with abscess status post explantation of left breast implant, and now explantation of right breast implant: Sincerely appreciate Dr. Pena's assistance. Continue Daptomycin as is, keeping a close eye on the patient's CK and transaminases which are both starting to creep up. She denies cough, myalgias, and no present evidence of eosinophilia. No new recommendations at this point in time. Subjective: Went to the OR yesterday for removal of right breast implant and capsulectomy, with washout. No obvious evidence of infection seen in right breast intraoperatively. Patient states she feels well, although she is somewhat sore today. No muscle aches, cough, and she is constipated. Objective: Daptomycin 425 mg IV daily day 14 Afebrile Vital Signs Temp Pulse Resp BP Pulse Ox 37.1 C 82 18 106/61 95 11/12/16 07:51 11/12/16 07:51 11/12/16 07:51 11/12/16 07:51 11/12/16 07:51 Laboratory Results 11/12/16 05:15 11/12/16 05:15 11/11/16 11/12/16 11/13/16 05:59 05:59 05:59 Intake Total 960 1540 200 Output Total 1300 1070 950 Balance -340 470 -750 C-Reactive Protein 17.2 mg/L (<10.0) H 11/08/16 06:05 No new microbiology Laboratory Tests 11/12/16 05:15 AST 71 H ALT 74 H Creatine Kinase 141 - Physical Exam General Appearance: alert, no apparent distress EENT: pharynx normal, No scleral icterus Respiratory: lungs clear Cardiac/Chest: other (No obvious heart murmur. Sternal wound VAC in place. Some brawny discoloration superiorly, but the patient states this is old. It is not beet red or tender. Patient has sherie along horizontal incisions in her right breast and left breast areas with MICHI drains. There is a small amount of serosanguineous fluid in both drains. The incisions look clean with no drainage or significant tenderness.) Extremities: other (Patient has a PICC line in her right arm, no swelling or tenderness.) Abdomen: soft, distended Skin: No rash ICD10 Worksheet Patient Problems: Problems Problem Status Onset ASTRID (acute kidney injury) Acute Cellulitis Acute Breast cancer Chronic CAD, multiple vessel Chronic COPD (chronic obstructive pulmonary disease) Chronic Carotid artery disease Chronic FH: CABG (coronary artery bypass surgery) Chronic History of mastectomy Chronic History of nephrectomy, unilateral Chronic Hyperlipemia Chronic Hypertension 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
--- NOTE | 2016-11-12 11:12 | SOAPPROG ---
SOAP Progress Note Assessment/Plan: Assessment: POD#14 sternal wound debridement, vac placement. Vac holiday POD#5- 11. POD#13 Explantation of left breast implant, drain placement. POD#1 Explantation of rt breast implant, complete bilateral capsulectomy, extensive left chest debridement, bilat drains, vac replacement by plastic surgery. D13 IV daptomycin per RUE PICC. Upper sternal cellulitis - Associated with MSSA bacteremia and subcutaneous abscess extending to bilateral breast implants. No evidence deep infection. Favorable clinical response to staged debridement and targetted Abx, until POD# 9 when recurrent malaise and profuse spontaneous drainage from left surgical site c/w seroma. Revision by plastics undertaken yest. Clean wound bed achieved. ASTRID - Single kidney w baseline Cr 0.8-1.0. Admit Cr 1.8, likely prerenal ( relative dehydration and hypotension) secondary to infection. Near normalization w supportive care, recently fluctuating btwn 1.1-1.5. Monitored. Stable CAD - Off tele. Plan: Wound care per plastics. Abx per ID. Dispo - [facility] when cleared by plastics. 11/12/16 11:07 Subjective: Feels better than ever. Optimistic that wound problems behind her. Objective: Vital Signs Temp Pulse Resp BP Pulse Ox 37.1 C 82 18 106/61 95 11/12/16 07:51 11/12/16 07:51 11/12/16 07:51 11/12/16 07:51 11/12/16 07:51 Laboratory Results 11/12/16 05:15 11/12/16 05:15 11/11/16 11/12/16 11/13/16 05:59 05:59 05:59 Intake Total 960 1540 200 Output Total 1300 1070 950 Balance -340 470 -750 Cardioresp status stable. Labs ok. Physical Exam - Physical Exam General Appearance: no apparent distress Respiratory: other (Chest binder intact. Central wound vac, good seal. 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
[2016-11-12] MEDS: FLUTICASONE NASAL 120 SPRAYS/16 GM MDI EACHNARE SCH (14:22)
[2016-11-12] MEDS: SENNOSIDES/DOCUSATE SODIUM TAB PO PRN (21:50)
[2016-11-13] MEDS: traMADol 50 MG TAB PO PRN ×4 (04:22→20:33)
[2016-11-13 04:47] LABS: HEMATOCRIT 22.7 % (38.0-47.0); HEMOGLOBIN 7.3 g/dL (12.6-16.3)
[2016-11-13 04:59] LABS: POTASSIUM 4.9 mEq/L (3.5-5.2)
--- NOTE | 2016-11-13 09:02 | SOAPPROG ---
SOAP Progress Note Assessment/Plan: Assessment: infection left chest wall s/p removal of reconstructive implant Plan: Clear for discharge to rehab. Shower ok. Portable VAC. Will follow up next week in my office for drain and staple removal. Continue IVABx 10/27/16 18:12 11/10/16 17:37 11/13/16 08:59 Subjective: feels better s/p surgery Objective: Vital Signs Temp Pulse Resp BP Pulse Ox 36.8 C 77 18 102/62 98 11/13/16 08:00 11/13/16 08:00 11/13/16 08:00 11/13/16 08:00 11/13/16 08:00 Laboratory Results 11/13/16 04:12 11/13/16 04:12 11/12/16 11/13/16 11/14/16 05:59 05:59 05:59 Intake Total 1540 900 Output Total 1070 1590 1028 Balance 470 -690 -1028 Incisions intact, drainage serosanguinous. Drains functioning. Erythema resolving. 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
[2016-11-13] MEDS: amLODIPine BESYLATE 5 MG TAB PO SCH (09:08)
[2016-11-13] MEDS: ANASTROZOLE 1 MG TAB PO SCH (09:08)
[2016-11-13] MEDS: VENLAFAXINE XR 37.5 MG CAP PO SCH (09:09)
[2016-11-13] MEDS: CYANO/VITAMIN B12 1000 MCG TAB PO SCH (09:09)
[2016-11-13] MEDS: FLUTICASONE NASAL 120 SPRAYS/16 GM MDI EACHNARE SCH (09:10)
[2016-11-13] MEDS: OMEPRAZOLE 40MG PO SCH (09:11)
[2016-11-13] MEDS: METOPROLOL TARTRATE 25 MG TAB PO SCH ×2 (09:11→20:32)
[2016-11-13] MEDS: ENOXAPARIN 30 MG/0.3 ML SYR SC SCH (09:12)
[2016-11-13] MEDS: FLUTICASONE/SALMETER 250/50MCG DISKUS IH SCH ×2 (09:14→20:39)
[2016-11-13] MEDS: TIOTROPIUM BROMIDE 5 MCG IH SCH (09:15)
[2016-11-13] MEDS: SENNOSIDES/DOCUSATE SODIUM TAB PO PRN (09:19)
[2016-11-13] MEDS: NS IV SCH (09:25)
[2016-11-13] MEDS: DAPTOMYCIN IV SCH (09:25)
--- NOTE | 2016-11-13 09:38 | SOAPPROG ---
SOAP Progress Note Assessment/Plan: POD#15 sternal wound debridement, vac placement. Vac holiday since POD#5. POD#14: Explantation of left breast implant, drain placement POD#2 Explantation of rt breast implant, complete bilateral capsulectomy, extensive left chest debridement, bilat drains D15 IV daptomycin per RUE PICC. Upper sternal cellulitis - Associated with MSSA bacteremia and subcutaneous abscess extending to bilateral breast implants. Sternal debridement with Dr. Villaseñor and explantation of left breast implant. Recently taken back to OR with plastics for further debridement of left chest with closure and right breast implant explantation/closure. Acute blood loss anemia - Plan for 1U PRBC to be transfused today. H/H tomorrow AM. ASTRID - Single kidney w baseline Cr 0.8-1.0. Admit Cr 1.8 secondary to sepsis. Fluctuating btwn 1.1-1.6. Monitor. Stable CAD - Off tele. Disposition - cleared by plastics for discharge. Plan for SNF Tuesday. 11/13/16 09:46 Subjective: Feels well. Denies light-headedness. Denies pain. Looking forward to leaving hospital after the weekend. Objective: Vital Signs Temp Pulse Resp BP Pulse Ox 36.8 C 77 18 102/62 98 11/13/16 08:00 11/13/16 08:00 11/13/16 08:00 11/13/16 08:00 11/13/16 08:00 Laboratory Results 11/13/16 04:12 11/13/16 04:12 11/12/16 11/13/16 11/14/16 05:59 05:59 05:59 Intake Total 1540 900 Output Total 1070 1590 1028 Balance 470 -690 -1028 Physical Exam - Physical Exam General Appearance: WD/WN, alert, no apparent distress EENT: No scleral icterus (R), No scleral icterus (L) Neck: normal inspection Respiratory: No respiratory distress Cardiac/Chest: regular rate, rhythm Abdomen: non-tender, soft, distended Skin: normal color, warm/dry, other (Sternal wound vac intact. B/L chest wounds intact. 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
[2016-11-13] MEDS: ACETAMINOPHEN 325 MG TAB PO PRN (22:55)
[2016-11-14 06:21] LABS: HEMATOCRIT 26.8 % (38.0-47.0); HEMOGLOBIN 8.9 g/dL (12.6-16.3)
--- NOTE | 2016-11-14 08:24 | SOAPPROG ---
SOAP Progress Note Assessment/Plan: POD#16 sternal wound debridement, vac placement. Vac holiday since POD#5. POD#15: Explantation of left breast implant, drain placement POD#3 Explantation of rt breast implant, complete bilateral capsulectomy, extensive left chest debridement, bilat drains D16 IV daptomycin per RUE PICC. Upper sternal cellulitis - Associated with MSSA bacteremia and subcutaneous abscess extending to bilateral breast implants. Sternal debridement with Dr. Villaseñor and explantation of left breast implant. Recently taken back to OR with plastics for further debridement of left chest with closure and right breast implant explantation/closure. Acute blood loss anemia s/p 1 U PRBC with adequate response in H/H. Monitor. ASTRID - Single kidney w baseline Cr 0.8-1.0. Admit Cr 1.8 secondary to sepsis. Fluctuating btwn 1.1-1.6. Monitor. Stable CAD - Off tele. Disposition - cleared by plastics for discharge. Plan for SNF Tuesday with portable vac/IV ABX administration. Subjective: Feels OK. No pain. comfortable. Slept well overnight. Objective: Vital Signs Temp Pulse Resp BP Pulse Ox 37.1 C 70 20 107/59 L 93 11/14/16 07:51 11/14/16 07:51 11/14/16 07:51 11/14/16 07:51 11/14/16 07:51 Laboratory Results 11/14/16 05:55 11/13/16 04:12 11/13/16 11/14/16 11/15/16 05:59 05:59 05:59 Intake Total 900 1025 Output Total 1590 1608 Balance -690 -583 Physical Exam - Physical Exam General Appearance: WD/WN, alert, no apparent distress EENT: No scleral icterus (R), No scleral icterus (L) Neck: normal inspection Respiratory: No respiratory distress Cardiac/Chest: regular rate, rhythm, other (sternal wound vac in place) Abdomen: non-tender, soft, distended Skin: normal color, warm/dry Extremities: No pedal edema Neuro/Psych: no motor/sensory deficits, alert, normal mood/affect, oriented x 3 ICD10 Worksheet Patient Problems: Problems Problem Status Onset ASTRID (acute kidney injury) Acute Cellulitis Acute Breast cancer Chronic CAD, multiple vessel Chronic COPD (chronic obstructive pulmonary disease) Chronic Carotid artery disease Chronic FH: CABG (coronary artery bypass surgery) Chronic History of mastectomy Chronic History of nephrectomy, unilateral Chronic Hyperlipemia Chronic Hypertension 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
[2016-11-14] MEDS: DAPTOMYCIN IV SCH (09:40)
[2016-11-14] MEDS: NS IV SCH (09:40)
[2016-11-14] MEDS: METOPROLOL TARTRATE 25 MG TAB PO SCH ×2 (09:44→20:16)
[2016-11-14] MEDS: CYANO/VITAMIN B12 1000 MCG TAB PO SCH (09:44)
[2016-11-14] MEDS: VENLAFAXINE XR 37.5 MG CAP PO SCH (09:44)
[2016-11-14] MEDS: ANASTROZOLE 1 MG TAB PO SCH (09:44)
[2016-11-14] MEDS: ENOXAPARIN 30 MG/0.3 ML SYR SC SCH (09:45)
[2016-11-14] MEDS: ASPIRIN EC 81 MG TAB PO SCH (09:45)
[2016-11-14] MEDS: traMADol 50 MG TAB PO PRN ×3 (09:49→22:09)
[2016-11-14] MEDS: OMEPRAZOLE 40MG PO SCH (09:50)
[2016-11-14] MEDS: SENNOSIDES/DOCUSATE SODIUM TAB PO PRN (09:50)
[2016-11-14] MEDS: FLUTICASONE/SALMETER 250/50MCG DISKUS IH SCH ×2 (09:53→19:37)
[2016-11-14] MEDS: TIOTROPIUM BROMIDE 5 MCG IH SCH (09:54)
[2016-11-14] MEDS: FLUTICASONE NASAL 120 SPRAYS/16 GM MDI EACHNARE SCH (10:39)
--- NOTE | 2016-11-14 11:23 | PCMIDPN ---
Assessment/Plan: 1. MSSA bacteremia/sternal wound infection with abscess status post explantation of left breast implant, and now explantation of right breast implant: Blood cultures have sterilized. Wounds look good. Continue daptomycin; will repeat CK and liver function tests tomorrow morning to make sure things are not going in the wrong direction. Discharge to [facility] tomorrow. No new recommendations. 2. Slightly elevated liver function tests: Repeat tomorrow. 11/14/16 11:22 Subjective: Was sleeping soundly. No complaints. Eager to be discharged tomorrow. No muscle aches. No diarrhea. Objective: Daptomycin 425 mg IV daily day 16 Afebrile Vital Signs Temp Pulse Resp BP Pulse Ox 37.1 C 70 16 107/59 L 93 11/14/16 07:51 11/14/16 10:00 11/14/16 10:00 11/14/16 07:51 11/14/16 10:00 Laboratory Results 11/14/16 05:55 11/13/16 04:12 11/13/16 11/14/16 11/15/16 05:59 05:59 05:59 Intake Total 900 1025 100 Output Total 1590 1608 1000 Balance -690 -583 -900 C-Reactive Protein 17.2 mg/L (<10.0) H 11/08/16 06:05 No new microbiology - Physical Exam General Appearance: alert, no apparent distress EENT: pharynx normal, other (False teeth are out) Respiratory: lungs clear Cardiac/Chest: other (Wound VAC in place, sternum. Surrounding soft tissues look fine. Bilateral incisions right and left chest extending to axillae look fine as well. 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
--- NOTE | 2016-11-14 11:25 | PDIAF ---
- Diagnosis Diagnosis: MSSA bacteremia and wound infection Code Status: Full Code - Medication Management Discharge Medications: Medications to Continue on Transfer Anastrozole [Arimidex 1 mg (*)] 1 mg PO DAILY 08/11/16 [Last Taken 10/26/16] Aspirin EC [Aspirin EC 81 mg (*)] 81 mg PO DAILY 08/11/16 [Last Taken 10/26/16] Cyanocobalamin [Vitamin B12 (*)] 5,000 mcg PO DAILY 08/11/16 [Last Taken ] Denosumab [Prolia] 60 mg SQ Q180D 08/11/16 [Last Taken 07/28/16] Fluticasone Nasal [Flonase Nasal [place]] 1 sprays NASAL DAILY 08/11/16 [Last Taken 10/24/16] Fluticasone/Salmeter 250/50Mcg [Advair 250/50 (*)] 1 puffs IH BID 08/11/16 [ Last Taken 10/26/16] Omeprazole 40 mg PO DAILY 08/11/16 [Last Taken 10/26/16] Tiotropium [place] [Spiriva Respimat] 5 mcg IH DAILY 08/11/16 [Last Taken ] Acetaminophen [Tylenol 325mg (*)] 650 mg PO Q4 PRN #0 tab 08/17/16 [Last Taken 10/26/16] Metoprolol Tartrate [Lopressor 25 mg (*)] 12.5 mg PO BID #30 tab 08/17/16 [Last Taken 10/26/16] Albuterol [Ventolin Hfa Inhaler] 2 puffs IH QID PRN #1 mdi 09/12/16 [Last Taken 10/26/16] Amlodipine Besylate 5 mg PO DAILY 10/12/16 [Last Taken 10/26/16] Furosemide [Lasix 20 MG (*)] 20 mg PO MOWEFR@10/12/16 [Last Taken 10/25/16] traMADol [Ultram 50 mg (*)] 50 mg PO Q4HRS PRN #30 tab 10/13/16 [Last Taken ] Alirocumab [Praluent Syringe] 75 mg SQ Q14D 10/26/16 [Last Taken 10/25/16] Venlafaxine HCl [Venlafaxine HCl ER] 37.5 mg PO DAILY 10/26/16 [Last Taken 10/25] Director Biomedical Engineering Antibiotics: daptomycin 425 mg IV daily [place] Antibiotic Stop Date: 12/11/16 Discharge Medications: Refer to the Discharge Home Medication list for PRN reason. PICC Care - Routine: Yes - Labs/Radiology CBC Date: 11/22/16 (weekly Tuesday) CMP Date: 11/22/16 (weekly Tuesday) CRP Date: 11/22/16 (weekly Tuesday) CPK Date: 11/22/16 (weekly Tuesday) Call or Fax Lab and Imaging Results to: [id number] Dr Silva - Follow Up Care Current Providers and Referrals: Hollie Quiñones MD [Primary Care Provider] -
[2016-11-15] MEDS: traMADol 50 MG TAB PO PRN (02:02)
[2016-11-15 06:13] LABS: ALANINE AMINOTRANSFERASE 45 IU/L (9-52); ALBUMIN 2.8 g/dL (3.5-5.0); ALKALINE PHOSPHATASE 157 IU/L (38-126); ANION GAP 9 mEq/L (8-16); ASPARTATE AMINOTRANSFERASE 28 IU/L (14-46); BILIRUBIN,TOTAL 0.5 mg/dL (0.1-1.4); CARBON DIOXIDE 27 mEq/l (22-31); CHLORIDE 104 mEq/L (97-110); CREATININE 1.2 mg/dL (0.6-1.0); GLOMERULAR FILTRATION RATE 44; GLUCOSE 82 mg/dL (70-100); POTASSIUM 4.3 mEq/L (3.5-5.2); SODIUM 140 mEq/L (134-144); TOTAL PROTEIN 5.6 g/dL (6.3-8.2)
[2016-11-15 07:45] VITALS: O2SAT 94
--- NOTE | 2016-11-15 07:51 | SOAPPROG ---
SOAP Progress Note Assessment/Plan: POD#17 sternal wound debridement, vac placement. Vac holiday since POD#5. POD#16: Explantation of left breast implant, drain placement POD#4 Explantation of rt breast implant, complete bilateral capsulectomy, extensive left chest debridement, bilat drains D17 IV daptomycin per RUE PICC. Upper sternal cellulitis - Associated with MSSA bacteremia and subcutaneous abscess extending to bilateral breast implants. Sternal debridement with Dr. Villaseñor and explantation of left breast implant. Recently taken back to OR with plastics for further debridement of left chest with closure and right breast implant explantation/closure. Vac left to sternal wound. Acute blood loss anemia s/p 1 U PRBC with adequate response in H/H. Monitor. ASTRID - Single kidney w baseline Cr 0.8-1.0. Admit Cr 1.8 secondary to sepsis. Fluctuating btwn 1.1-1.6. Monitor. Stable CAD - Off tele. Disposition - cleared by plastics and ID for discharge. Plan for SNF Tuesday with portable vac/IV ABX administration. 11/15/16 07:49 Subjective: Feels well. Hoping she won't need additional surgeries. Objective: Vital Signs Temp Pulse Resp BP Pulse Ox 36.8 C 100 15 143/90 H 94 11/15/16 07:42 11/15/16 07:42 11/15/16 07:42 11/15/16 07:42 11/15/16 07:42 Laboratory Results 11/14/16 05:55 11/15/16 05:45 11/14/16 11/15/16 11/16/16 05:59 05:59 05:59 Intake Total 1025 600 Output Total 1608 1120 Balance -583 -520 Physical Exam - Physical Exam General Appearance: WD/WN, alert, no apparent distress EENT: No scleral icterus (R), No scleral icterus (L) Neck: normal inspection Respiratory: No respiratory distress Cardiac/Chest: regular rate, rhythm Abdomen: non-tender, soft Skin: normal color, warm/dry Extremities: No pedal edema Neuro/Psych: no motor/sensory deficits, alert, normal mood/affect, oriented x 3 ICD10 Worksheet Patient Problems: Problems Problem Status Onset ASTRID (acute kidney injury) Acute Cellulitis Acute Breast cancer Chronic CAD, multiple vessel Chronic COPD (chronic obstructive pulmonary disease) Chronic Carotid artery disease Chronic FH: CABG (coronary artery bypass surgery) Chronic History of mastectomy Chronic History of nephrectomy, unilateral Chronic Hyperlipemia Chronic Hypertension 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
[2016-11-15] MEDS: FLUTICASONE/SALMETER 250/50MCG DISKUS IH SCH (08:13)
[2016-11-15] MEDS: TIOTROPIUM BROMIDE 5 MCG IH SCH (08:14)
[2016-11-15] MEDS: CYANO/VITAMIN B12 1000 MCG TAB PO SCH (08:37)
[2016-11-15] MEDS: ANASTROZOLE 1 MG TAB PO SCH (08:38)
[2016-11-15] MEDS: ASPIRIN EC 81 MG TAB PO SCH (08:38)
[2016-11-15] MEDS: VENLAFAXINE XR 37.5 MG CAP PO SCH (08:38)
[2016-11-15] MEDS: METOPROLOL TARTRATE 25 MG TAB PO SCH (08:39)
[2016-11-15] MEDS: OMEPRAZOLE 40MG PO SCH (08:40)
[2016-11-15] MEDS: ENOXAPARIN 30 MG/0.3 ML SYR SC SCH (08:42)
[2016-11-15] MEDS: SENNOSIDES/DOCUSATE SODIUM TAB PO PRN (08:44)
[2016-11-15] MEDS: NS IV SCH (08:54)
[2016-11-15] MEDS: DAPTOMYCIN IV SCH (08:54)
--- NOTE | 2016-11-15 09:58 | PDIAF ---
- Diagnosis Diagnosis: MSSA bacteremia and wound infection Code Status: Full Code - Medication Management Discharge Medications: Medications to Continue on Transfer Anastrozole [Arimidex 1 mg (*)] 1 mg PO DAILY 08/11/16 [Last Taken 10/26/16] Aspirin EC [Aspirin EC 81 mg (*)] 81 mg PO DAILY 08/11/16 [Last Taken 10/26/16] Cyanocobalamin [Vitamin B12 (*)] 5,000 mcg PO DAILY 08/11/16 [Last Taken ] Denosumab [Prolia] 60 mg SQ Q180D 08/11/16 [Last Taken 07/28/16] Fluticasone Nasal [Flonase Nasal [place]] 1 sprays NASAL DAILY 08/11/16 [Last Taken 10/24/16] Fluticasone/Salmeter 250/50Mcg [Advair 250/50 (*)] 1 puffs IH BID 08/11/16 [ Last Taken 10/26/16] Omeprazole 40 mg PO DAILY 08/11/16 [Last Taken 10/26/16] Tiotropium [place] [Spiriva Respimat] 5 mcg IH DAILY 08/11/16 [Last Taken ] Acetaminophen [Tylenol 325mg (*)] 650 mg PO Q4 PRN #0 tab 08/17/16 [Last Taken 10/26/16] Metoprolol Tartrate [Lopressor 25 mg (*)] 12.5 mg PO BID #30 tab 08/17/16 [Last Taken 10/26/16] Albuterol [Ventolin Hfa Inhaler] 2 puffs IH QID PRN #1 mdi 09/12/16 [Last Taken 10/26/16] Amlodipine Besylate 5 mg PO DAILY 10/12/16 [Last Taken 10/26/16] Furosemide [Lasix 20 MG (*)] 20 mg PO MOWEFR@10/12/16 [Last Taken 10/25/16] traMADol [Ultram 50 mg (*)] 50 mg PO Q4HRS PRN #30 tab 10/13/16 [Last Taken ] Alirocumab [Praluent Syringe] 75 mg SQ Q14D 10/26/16 [Last Taken 10/25/16] Venlafaxine HCl [Venlafaxine HCl ER] 37.5 mg PO DAILY 10/26/16 [Last Taken 10/25] Project Administrator Antibiotics: Invanz 1g IV daily [facility] Antibiotic Stop Date: 12/11/16 Discharge Medications: Refer to the Discharge Home Medication list for PRN reason. PICC Care - Routine: Yes - Labs/Radiology CBC Date: 11/22/16 (weekly Tuesday) CMP Date: 11/22/16 (weekly Tuesday) CRP Date: 11/22/16 Call or Fax Lab and Imaging Results to: [id number] Dr Silva - Follow Up Care Current Providers and Referrals: Hollie Quiñones MD [Primary Care Provider] -
[2016-11-15] MEDS: FLUTICASONE NASAL 120 SPRAYS/16 GM MDI EACHNARE SCH (09:59)
[2016-11-15] MEDS ORDERED: ERTAPENEM 1 GM in NS 100 ML IV SCH (10:00)
--- NOTE | 2016-11-15 10:09 | PDIAF ---
- Diagnosis Diagnosis: MSSA bacteremia and wound infection Code Status: Full Code - Medication Management Discharge Medications: Medications to Continue on Transfer Anastrozole [Arimidex 1 mg (*)] 1 mg PO DAILY 08/11/16 [Last Taken 10/26/16] Aspirin EC [Aspirin EC 81 mg (*)] 81 mg PO DAILY 08/11/16 [Last Taken 10/26/16] Cyanocobalamin [Vitamin B12 (*)] 5,000 mcg PO DAILY 08/11/16 [Last Taken ] Denosumab [Prolia] 60 mg SQ Q180D 08/11/16 [Last Taken 07/28/16] Fluticasone Nasal [Flonase Nasal [place]] 1 sprays NASAL DAILY 08/11/16 [Last Taken 10/24/16] Fluticasone/Salmeter 250/50Mcg [Advair 250/50 (*)] 1 puffs IH BID 08/11/16 [ Last Taken 10/26/16] Omeprazole 40 mg PO DAILY 08/11/16 [Last Taken 10/26/16] Tiotropium [place] [Spiriva Respimat] 5 mcg IH DAILY 08/11/16 [Last Taken ] Acetaminophen [Tylenol 325mg (*)] 650 mg PO Q4 PRN #0 tab 08/17/16 [Last Taken 10/26/16] Metoprolol Tartrate [Lopressor 25 mg (*)] 12.5 mg PO BID #30 tab 08/17/16 [Last Taken 10/26/16] Albuterol [Ventolin Hfa Inhaler] 2 puffs IH QID PRN #1 mdi 09/12/16 [Last Taken 10/26/16] Amlodipine Besylate 5 mg PO DAILY 10/12/16 [Last Taken 10/26/16] Furosemide [Lasix 20 MG (*)] 20 mg PO MOWEFR@10/12/16 [Last Taken 10/25/16] traMADol [Ultram 50 mg (*)] 50 mg PO Q4HRS PRN #30 tab 10/13/16 [Last Taken ] Alirocumab [Praluent Syringe] 75 mg SQ Q14D 10/26/16 [Last Taken 10/25/16] Venlafaxine HCl [Venlafaxine HCl ER] 37.5 mg PO DAILY 10/26/16 [Last Taken 10/25] Commercial Real Estate Assistant Antibiotics: Invanz 1g IV daily Care Home Antibiotic Stop Date: 12/11/16 Discharge Medications: Refer to the Discharge Home Medication list for PRN reason. PICC Care - Routine: Yes - Labs/Radiology CBC Date: 11/22/16 (weekly Tuesday) CMP Date: 11/22/16 (weekly Tuesday) CRP Date: 11/22/16 CPK Date: 11/22/16 Call or Fax Lab and Imaging Results to: [phone] Dr Silva - Follow Up Care Current Providers and Referrals: Hollie Quiñones MD [Primary Care Provider] - Charbel Silva MD [Medical Doctor] - 11/24/16 1:30 pm
--- NOTE | 2016-11-15 10:50 | WOCRNPDOC ---
WOCRN Advanced Assessment Note - Skin Integrity Problem, Advanced Assess Anterior Chest Dressing Type: Black Vac Foam (x 1 ), Wound Vac Dressing Description: Clean/Dry, Intact Exudate Amount: Scant Exudate Characteristic(s): Serosanguinous Integumentary Issue Intervention: Dressing Changed Wound Bed Color: Red, Yellow Wound Bed Constitution: Granulation Tissue (60%), Bone (20%), Adhered Slough (20 %) Wound Edges: Attached Site Measurement - Head-to-Toe Length X Width X Depth (cm): 12x3x3 Skin Integrity Problem Comment: Black foam strongly adhered. Removed after soaking with ns. Skin prep stephanie wound and drape. Small piece of white foam to wound bed to cover bone. Covered with a second piece of small black simplace over white foam with a second piece of black foam for trac landing pad. Vac restarted at - 125 mm Hg continuous suction with no leaks. Nicolás NELSON visualized wound bed. Dayron SULLIVAN in room for care.
[2016-11-15 11:11] VITALS: TEMP 97.5
--- NOTE | 2016-11-15 11:27 | PDIAF ---
- Diagnosis Diagnosis: MSSA bacteremia wound infection Code Status: Full Code - Medication Management Discharge Medications: Medications to Continue on Transfer Anastrozole [Arimidex 1 mg (*)] 1 mg PO DAILY 08/11/16 [Last Taken 10/26/16] Aspirin EC [Aspirin EC 81 mg (*)] 81 mg PO DAILY 08/11/16 [Last Taken 10/26/16] Cyanocobalamin [Vitamin B12 (*)] 5,000 mcg PO DAILY 08/11/16 [Last Taken ] Denosumab [Prolia] 60 mg SQ Q180D 08/11/16 [Last Taken 07/28/16] Fluticasone Nasal [Flonase Nasal [place]] 1 sprays NASAL DAILY 08/11/16 [Last Taken 10/24/16] Fluticasone/Salmeter 250/50Mcg [Advair 250/50 (*)] 1 puffs IH BID 08/11/16 [ Last Taken 10/26/16] Omeprazole 40 mg PO DAILY 08/11/16 [Last Taken 10/26/16] Tiotropium [place] [Spiriva Respimat] 5 mcg IH DAILY 08/11/16 [Last Taken ] Acetaminophen [Tylenol 325mg (*)] 650 mg PO Q4 PRN #0 tab 08/17/16 [Last Taken 10/26/16] Metoprolol Tartrate [Lopressor 25 mg (*)] 12.5 mg PO BID #30 tab 08/17/16 [Last Taken 10/26/16] Albuterol [Ventolin Hfa Inhaler] 2 puffs IH QID PRN #1 mdi 09/12/16 [Last Taken 10/26/16] traMADol [Ultram 50 mg (*)] 50 mg PO Q4HRS PRN #30 tab 10/13/16 [Last Taken ] Alirocumab [Praluent Syringe] 75 mg SQ Q14D 10/26/16 [Last Taken 10/25/16] Venlafaxine HCl [Venlafaxine HCl ER] 37.5 mg PO DAILY 10/26/16 [Last Taken 10/25] Enoxaparin [Lovenox] 30 mg SC DAILY #0 syr 11/15/16 [Last Taken Unknown] Ertapenem [INVanz] 1 gm IV DAILY #0 vial 11/15/16 [Last Taken Unknown] Sennosides/Docusate Sodium [Senokot-S] 1 - 2 tab PO BID PRN #0 tab 11/15/16 [ Last Taken Unknown] Senior Living Antibiotics: Invanz 1g IV daily Senior Living Antibiotic Stop Date: 12/11/16 Discharge Medications: Refer to the Discharge Home Medication list for PRN reason. PICC Care - Routine: Yes - Orders Services needed: Registered Nurse, Certified Foot Drill Operator, Physical Therapy, Occupational Therapy Oxygen: 2L NC continuous / CPAP at night with home device Diet Recommendation: cardiac -low fat low salt, fluid restriction (use comment for amount) (2 Liters) Diet Texture: Regular Texture Diet Weigh Patient: daily Gardner: No Wound Care Instructions: - Sternal wound vac as per plastics - leave on until follow-up appt. - Leave chest wounds open air and wash daily with soap and water. - Empty marce drains x 2 every shift or as needed Sutures/Diane Site: Wash daily with soap and water and leave open to air Activity/Weight Bearing Restrictions: Continue sternal precautions - Labs/Radiology CBC Date: 11/22/16 (weekly Tuesday) CMP Date: 11/22/16 (weekly Tuesday) CRP Date: 11/22/16 (weekly Tuesday) CPK Date: 11/22/16 (weekly Tuesday) Call or Fax Lab and Imaging Results to: [phone] Dr Silva - Follow Up Care Current Providers and Referrals: Minda Pena JR, MD [Medical Doctor] - 11/18/16 9:45 am () Charbel Silva MD [Medical Doctor] - 11/24/16 1:30 pm Joe Villaseñor DO [Doctor of Osteopathy] - 11/25/16 9:45 am Hollie Quiñones MD [Primary Care Provider] -
--- NOTE | 2016-11-15 11:52 | PDDCSUM ---
Discharge Summary Discharge Summary: ADMISSION DATE: 10/26/16 DISCHARGE DATE: 11/15/16 ADMISSION DX: 1. Sternal wound infection DISCHARGE DX: 1. Sternal wound infection 2. MSSA Bacteremia 3. Infection left chest wall 4. Right periprosthetic fluid SECONDARY DX: 1. CAD s/p CABG 2. Nephrectomy 3. Breast cancer s/p bilateral mastectomies 4. HTN 5. COPD CONSULTS 1. Plastic surgery: Jean Em 2. ID: Charbel Silva PROCEDURES: 10/29/16, Joe Villaseñor 1. Sternal wound debridement 2. Vac placement 10/30/16, Joe Villaseñor 1. Explantation of left breast implant 2. Drain placement 11/11/16, Manav Pena: 1. Bilateral complete capsulectomy 2. Removal right reconstructive implant 3. I&D left chest wall 4. Adjacent tissue transfer of left chest wall for defect, 30x10 cm HPI: 71F with h/o CABG and subsequent chest discomfort necessitating sternal wire/ band removal. Patient was evaluated in clinic with c/o extreme chest pain, chest erythema, and purulent sternal wound drainage and directly admitted to [facility] for care. HOSPITAL COURSE: The patient was found to have MSSA bacteremia. She underwent the procedures above and was eventually cleared for transferred to SNF for wound care and long- term IV antibiotic administration. Please see operative reports for further details. CONDITION Fair DISPOSITION: [facility] ACTIVITY: Pt was instructed on sternal precautions, activity limitations, and which problems to call [facility] with. Please see Discharge Plan in chart for specifics. D/C MEDICATIONS: 1. Anastrozole [Arimidex 1 mg (*)] 1 mg PO DAILY 2. Aspirin EC [Aspirin EC 81 mg (*)] 81 mg PO DAILY 3. Cyanocobalamin [Vitamin B12 (*)] 5,000 mcg PO DAILY 4. Denosumab [Prolia] 60 mg SQ Q180D 5. Fluticasone Nasal [Flonase Nasal [place]] 1 sprays NASAL DAILY 6. Fluticasone/Salmeter 250/50Mcg [Advair 250/50 (*)] 1 puffs IH BID 7. Omeprazole 40 mg PO DAILY 8. Tiotropium [place] [Spiriva Respimat] 5 mcg IH DAILY 9. Acetaminophen [Tylenol 325mg (*)] 650 mg PO Q4 PRN 10. Metoprolol Tartrate [Lopressor 25 mg (*)] 12.5 mg PO BID #30 11. Albuterol [Ventolin Hfa Inhaler] 2 puffs IH QID PRN 12. traMADol [Ultram 50 mg (*)] 50 mg PO Q4HRS PRN 13. Alirocumab [Praluent Syringe] 75 mg SQ Q14D 14. Venlafaxine HCl [Venlafaxine HCl ER] 37.5 mg PO DAILY 15. Enoxaparin [Lovenox] 30 mg SC DAILY 16. Ertapenem [INVanz] 1 gm IV DAILY 17. Sennosides/Docusate Sodium [Senokot-S] 1 - 2 tab PO BID PRN PENDING STUDIES/LABS: 1. CBC, CMP, CRP, CPK faxed to Dr. Silva F/U APPOINTMENTS: 1. Minda Pena - 11/18/16 9:45 am 2. Charbel Silva - 11/24/16 1:30 pm 3. Joe Villaseñor - 11/25/16 9:45 am
[2016-11-15 14:55] VITALS: BP 129/89; PULSE 92; RESP 14
== END 2016-11-15 15:06 | DRG 857 ==
LOC: F2W 18:11 → OBSVTOIN 18:43 → F2W 11-04 10:31
PROVIDERS: ADMIT Thoracic Surgery (Cardiothoracic Vascular Surgery); ATTEND Thoracic Surgery (Cardiothoracic Vascular Surgery)
PROC: 30233N1 Transfusion of Nonautologous Red Blood Cells into Peripheral Vein, Percutaneous Approach (ICD-10-PCS; 2016-10-26)
PROC: 02HV33Z Insertion of Infusion Device into Superior Vena Cava, Percutaneous Approach (ICD-10-PCS; 2016-10-27)
PROC: 0HPU0JZ Removal of Synthetic Substitute from Left Breast, Open Approach (ICD-10-PCS; principal; 2016-10-30 12:42)
PROC: 02HV33Z Insertion of Infusion Device into Superior Vena Cava, Percutaneous Approach (ICD-10-PCS; 2016-11-03)
PROC: 02PA33Z Removal of Infusion Device from Heart, Percutaneous Approach (ICD-10-PCS; 2016-11-03)
PROC: 0HPT0JZ Removal of Synthetic Substitute from Right Breast, Open Approach (ICD-10-PCS; 2016-11-11)
PROC: 0JB60ZZ Excision of Chest Subcutaneous Tissue and Fascia, Open Approach (ICD-10-PCS; 2016-11-11)
PROC: 0HX5XZZ Transfer Chest Skin, External Approach (ICD-10-PCS; 2016-11-11)
DX: T81.4XXA Infection following a procedure, initial encounter (principal); T81.32XA Disruption of internal operation (surgical) wound, not elsewhere classified, initial encounter; L03.313 Cellulitis of chest wall; T85.79XA Infection and inflammatory reaction due to other internal prosthetic devices, implants and grafts, initial encounter; N17.9 Acute kidney failure, unspecified; D62 Acute posthemorrhagic anemia; I10 Essential (primary) hypertension; J44.9 Chronic obstructive pulmonary disease, unspecified; B95.61 Methicillin susceptible Staphylococcus aureus infection as the cause of diseases classified elsewhere; E78.5 Hyperlipidemia, unspecified; G47.33 Obstructive sleep apnea (adult) (pediatric); I27.2 Other secondary pulmonary hypertension; Z95.1 Presence of aortocoronary bypass graft; Z85.3 Personal history of malignant neoplasm of breast; Z87.891 Personal history of nicotine dependence; Z90.5 Acquired absence of kidney; E86.0 Dehydration
CPT/HCPCS: C1751; J0171; J0878; J1335; J1650; J2250; J2405; J2704; J2997; J3010; J3370; P9016

== ENCOUNTER 2016-12-04 17:47 | Emergency (ER) | payer OTHER ==
[2016-12-04 17:54] VITALS: BP 170/94; PULSE 97; RESP 18; TEMP 98.2; O2SAT 94
--- NOTE | 2016-12-04 18:09 | EDPHY ---
H & P Smoking Status: Former smoker Time Seen by Provider: 12/04/16 17:58 HPI/ROS: CHIEF COMPLAINT: "My wound VAC stopped working" HISTORY OF PRESENT ILLNESS: 71-year-old female history of sternal wound infection placement of wound VAC on her sternum, recent hospitalization and discharged from a nursing facility today. Patient returns to the ER with family member because the wound VAC stopped working, no negative pressure. The family members unsure how to troubleshoot the wound VAC machine. Has been without negative pressure for approximately 2 hours. Otherwise patient feels well and has no acute complaints PHYSICAL EXAM (Prior to examination, patient consented to physical exam, hands were washed and my usual and customary physical exam procedures followed) 1) GENERAL: Well-developed, well-nourished, alert and oriented. Appears to be in no acute distress. 2) HEAD: Normocephalic 3) HEENT: sclera anicteric 4) LUNGS: Breathing comfortably. 5) SKIN: wound VAC on sternum has appropriate seal but no negative pressure . The wound VAC machine lcd screen has multiple unreadable messages and is currently not pulling negative pressure. (Gilmer Sesay) Constitutional: Initial Vital Signs Temperature (C) 36.8 C 12/04/16 17:52 Heart Rate 97 12/04/16 17:52 Respiratory Rate 18 12/04/16 17:52 Blood Pressure 170/94 H 12/04/16 17:52 O2 Sat (%) 94 12/04/16 17:52 O2 Delivery Mode Room Air Allergies/Adverse Reactions: adhesive tape Allergy (Verified 12/04/16 17:50) cephalexin monohydrate [From Keflex] Allergy (Verified 12/04/16 17:50) Rash levofloxacin [From Levaquin] Allergy (Verified 12/04/16 17:50) Rash olmesartan Allergy (Verified 12/04/16 17:50) Rash olmesartan medoxomil [From Benicar] Allergy (Verified 12/04/16 17:50) Rash oxycodone HCl [From Percocet] Allergy (Verified 12/04/16 17:50) Vomiting [id number]-[id number] Reductase Inhibitor Allergy (Verified 12/04/16 17:50) Other-Enter Comments Home Medications: Medication Instructions Recorded Anastrozole [Arimidex 1 mg (*)] 1 mg PO DAILY 08/11/16 Aspirin EC [Aspirin EC 81 mg (*)] 81 mg PO DAILY 08/11/16 Cyanocobalamin [Vitamin B12 (*)] 5,000 mcg PO DAILY 08/11/16 Denosumab [Prolia] 60 mg SQ Q180D 08/11/16 Fluticasone Nasal [Flonase Nasal 1 sprays NASAL DAILY 08/11/16 [place]] Fluticasone/Salmeter 250/50Mcg 1 puffs IH BID 08/11/16 [Advair 250/50 (*)] Omeprazole 40 mg PO DAILY 08/11/16 Tiotropium [place] [Spiriva 5 mcg IH DAILY 08/11/16 Respimat] Acetaminophen [Tylenol 325mg (*)] 650 mg PO Q4 PRN #0 tab 08/17/16 Metoprolol Tartrate [Lopressor 25 12.5 mg PO BID #30 tab 08/17/16 mg (*)] Albuterol [Ventolin Hfa Inhaler] 2 puffs IH QID PRN #1 mdi 09/12/16 traMADol [Ultram 50 mg (*)] 50 mg PO Q4HRS PRN #30 tab 10/13/16 Alirocumab [Praluent Syringe] 75 mg SQ Q14D 10/26/16 Venlafaxine HCl [Venlafaxine HCl 37.5 mg PO DAILY 10/26/16 ER] Ertapenem [INVanz] 1 gm IV DAILY #0 vial 11/15/16 Sennosides/Docusate Sodium 1 - 2 tab PO BID PRN #0 tab 11/15/16 [Senokot-S] MDM/Departure - MDM Procedures: Procedure: Rebooting of wound VAC machine The patient has wound VAC machine was not working appropriately. I rebooted the machine and appears to be working appropriately at this time. The patient was observed for a period of time in the ER and is maintaining negative pressure , her chest seal is not leaking. (Gilmer Sesay) ED Course/Re-evaluation: I did not see this patient while she was in the emergency department. However her care was discussed with the PA while the patient was in the department. I agree with treatment plan and management (Charbel Archer) - Depart Disposition: Home, Routine, Self-Care Clinical Impression: Encounter for management of vacuum-assisted closure (VAC) of wound Condition: Good Instructions: Wound Healing and Your Diet (ED) Additional Instructions: If your wound VAC machine stops working, press the power button for a few seconds until it turns off and then restart the machine. If this does not solve the problem return to the ER. Referrals: Minda Pena JR, MD [Medical Doctor] - 2-3 days, call for appt. Charbel Silva MD [Medical Doctor] - 2-3 days, call for appt.
== END 2016-12-04 18:44 | disposition home or self-care (01) ==
LOC: EEVIPCON 17:47
DX: T81.89XA Other complications of procedures, not elsewhere classified, initial encounter (principal); Z87.891 Personal history of nicotine dependence; Z79.82 Long term (current) use of aspirin; Y82.8 Other medical devices associated with adverse incidents

== ENCOUNTER 2016-12-15 17:11 | Inpatient (IN) | payer OTHER ==
--- NOTE | 2016-12-15 17:27 | EDPHY ---
H & P Stated Complaint: sob/chest fluid removed in dr's office Time Seen by Provider: 12/15/16 17:26 - Medical/Surgical History Hx Asthma: No Hx Chronic Respiratory Disease: No Hx Diabetes: No Hx Cardiac Disease: Yes Hx Renal Disease: No Hx Cirrhosis: No Hx Alcoholism: No Hx HIV/AIDS: No Hx Splenectomy or Spleen Trauma: No Other PMH: breast cancer, mastectomy, implants, COPD, CABGx4,cad, - Social History Smoking Status: Former smoker Constitutional: Initial Vital Signs Temperature (C) 36.9 C 12/15/16 17:16 Heart Rate 111 H 12/15/16 17:16 Respiratory Rate 27 H 12/15/16 17:16 Blood Pressure 127/97 H 12/15/16 17:16 O2 Sat (%) 95 12/15/16 17:16 O2 Delivery Mode Nasal Cannula O2 (L/minute) 2 Allergies/Adverse Reactions: adhesive tape Allergy (Verified 12/15/16 17:15) cephalexin monohydrate [From Keflex] Allergy (Verified 12/15/16 17:15) Rash levofloxacin [From Levaquin] Allergy (Verified 12/15/16 17:15) Rash olmesartan Allergy (Verified 12/15/16 17:15) Rash olmesartan medoxomil [From Benicar] Allergy (Verified 12/15/16 17:15) Rash oxycodone HCl [From Percocet] Allergy (Verified 12/15/16 17:15) Vomiting Ofsvvze-Wwj-Krm Reductase Inhibitor Allergy (Verified 12/15/16 17:15) Other-Enter Comments Home Medications: Medication Instructions Recorded Anastrozole [Arimidex 1 mg (*)] 1 mg PO DAILY 08/11/16 Aspirin EC [Aspirin EC 81 mg (*)] 81 mg PO DAILY 16 Omeprazole 40 mg PO DAILY 16 Acetaminophen [Tylenol 325mg (*)] 650 mg PO Q4 PRN #0 tab 08/17/16 Metoprolol Tartrate [Lopressor 25 12.5 mg PO BID #30 tab 08/17/16 mg (*)] Albuterol [Ventolin Hfa Inhaler] 2 puffs IH QID PRN #1 mdi 09/12/16 traMADol [Ultram 50 mg (*)] 50 mg PO Q4HRS PRN #30 tab 10/13/16 Alirocumab [Praluent Syringe] 75 mg SQ Q14D 10/26/16 Venlafaxine HCl [Venlafaxine HCl 37.5 mg PO DAILY 10/26/16 ER] Fluticasone/Salmeter 250/50Mcg 1 puffs IH BID 12/15/16 [Advair 250/50 (*)] Tiotropium Inhaler [Spiriva 18 mcg IH DAILY 12/15/16 Handihaler] Medical Decision Making - Diagnostics Imaging: Imaging Impressions Chest/Thorax CTA 12/15/16 17:38 Impression: 1. No evidence for pulmonary embolic disease. 2. Mild extension of retrosternal gas from the patient's known ununited, dehisced sternotomy. 3. No pneumonia. Bypass grafts are patent. 4. Early thoracic aortic aneurysm. Recommend follow-up in one year. Results discussed with Dr. Angel at 8:31 PM. General information for patients regarding this examination can be found at [email or web address]. If you have questions or comments about this report, please contact me at (hospital) or [phone] (cell). ED Course/Re-evaluation: CHIEF COMPLAINT: Possible wound infection, chest pain. HISTORY OF PRESENT ILLNESS: The patient is a 71-year-old female with a recent history of CABG who presents with bilateral chest wall pain. After the CABG she developed infections in both breast implants. She was debrided and has been followed by Dr. Silva, infectious disease. She had a wound vac placed that was removed today. She had a large amount of fluid drained from her chest today by Dr. Pena and then developed bilateral chest pain. This was causing her mild difficulty breathing. She was referred to the ER for further workup. She denies vomiting, diarrhea, fever, or other complaints. REVIEW OF SYSTEMS: A 10 point review of systems was performed and is negative with the exception of the elements mentioned in the history of present illness. PHYSICAL EXAM: HR, BP, O2 Sat, RR. Temp noted General Appearance: Alert, well hydrated, appropriate, and non-toxic appearing. Head: Atraumatic without scalp tenderness or obvious injury Eyes: Pupils equal, round, reactive to light and accommodation, EOMI, no trauma , no injection. Ears: Clear bilaterally, no perforation, normal landmarks Nose: Atraumatic, no rhinorrhea, clear. Throat: There is no erythema or exudates, no lesions, normal tonsils, mucus membranes moist. Neck: Supple, 2+ carotid upstroke, nontender, no lymphadenopathy. Respiratory: No retractions, no distress, no wheezes, and no accessory muscle use. Lungs are clear to auscultation bilaterally. Cardiovascular: Regular rate and rhythm, no murmurs, rubs, or gallops. Bilateral carotid, radial, dorsalis pedis, and posterior tibial pulses intact. Good capillary refill all extremities. Gastrointestinal: Abdomen is soft, nontender, non-distended, no masses, no rebound, no guarding, no peritoneal signs. Musculoskeletal: Normal active ROM of all extremities, atraumatic. Erythema at top of mediastinum incision. Neurological: Alert, appropriate, and interactive. The patient has normal DTRs and non-focal cranial nerves, motor, sensory, and cerebellar exam. Skin: No rashes, good turgor, no nodules on palpation. Past medical history: COPD, CAD, breast cancer, CABG x4. Past surgical history: Breast cancer. Family history: N/A. Social history: Here with daughter. DIAGNOSTICS/PROCEDURES/CRITICAL CARE TIME: I reviewed the patient's imaging studies on the PACS system. See "imaging" section for radiologist reports. The 12 lead EKG was interpreted by myself. See hard copy and/or "tracemaster" electronic copy for interpretation. Sinus tachycardia rate 107, borderline inferior Q waves. DIFFERENTIAL DIAGNOSIS: The differential diagnosis includes but is not limited to: cellulitis, abscess, sepsis, pneumonia, pulmonary embolism. MEDICAL DECISION MAKIN-year-old female presents from Dr. Pena's office after having her wound vac removed and a large amount of serosanguineous discharge drained from her mediastinum. After this procedure she developed pain in her bilateral chest wall and some mild shortness of breath. She has no other complaints at this time. An IV was established. We will order labs. Chest CT ordered. The patient is not febrile or tachycardic. She does not meet the criteria for sepsis. On exam she does have erythema at the top of her mediastinal procedure site. She will be admitted for further workup for cellulitis and mediastinitis. WBC elevated at 10.8. Lactic acid negative. 1736: I consulted with Dr. Pena. He reports that the patient initially had a CABG and then developed infections in both of her breast implants. She was debrided and had a wound vac placed. She has been followed by Dr. Silva, infectious disease. Dr. Pena tells me that she was seen in his office today and looked generally unwell for unknown reasons so he referred her to the ED for evaluation of possible infection of her incision. 1804: Consulted with Dr. Gonzalez, hospitalist. She accepts admission. 1811: Consulted with Dr. Silva, infectious disease. He recommends 435mg IV Daptomycin for infection. - Data Points Medications Given: Discontinued Medications Daptomycin 425 mg/ Sodium (Chloride) 108.5 mls @ 200 mls/hr IV EDNOW ONE PRN Reason: Protocol Stop: 12/15/16 18:48 Last Admin: 12/15/16 19:10 Dose: 108.5 mls Departure - Departure Disposition: [facility] Inpatient Acute Clinical Impression: Mediastinitis Cellulitis Qualifiers: Site of cellulitis: trunk Site of cellulitis of trunk: chest wall Qualified Code(s): L03.313 - Cellulitis of chest wall Condition: Fair Report Scribed for: Reji Angel Report Scribed by: Evan Duke Date of Report: 12/15/16 Time of Report: 18:25
[2016-12-15] MEDS ORDERED: NS IV ONE (18:16)
[2016-12-15] MEDS ORDERED: DAPTOMYCIN IV ONE (18:16)
[2016-12-15 18:41] LABS: % IMMATURE GRANULYOCYTES 0.3 % (0.0-1.1); ABSOLUTE IMMATURE GRANULOCYTES 0.03 10^3/uL (0.00-0.10); ADD DIFF? NO; ADD MORPH? NO; ADD SCAN? NO; ATYPICAL LYMPHOCYTE FLAG 0 (0-99); FRAGMENT RBC FLAG 0 (0-99); HEMATOCRIT 32.4 % (38.0-47.0); LEFT SHIFT FLG 0 (0-99); LIPEMIA HEMOLYSIS FLAG 90 (0-99); MEAN CELL VOLUME 97.3 fL (81.5-99.8); MEAN PLATELET VOLUME 11.1 fL (8.7-11.7); PLATELET CLUMPS FLAG 10 (0-99); PLATELET COUNT 209 10^3/uL (150-400); RED BLOOD CELL COUNT 3.33 10^6/uL (4.18-5.33); RED CELL DISTRIBUTION WIDTH 15.3 % (11.5-15.2)
[2016-12-15 18:51] LABS: INR 1.04 (0.83-1.16); PROTIME(PATIENT) 13.5 SEC (12.0-15.0)
[2016-12-15 18:52] LABS: APTT 27.8 SEC (23.0-38.0)
[2016-12-15 18:59] LABS: ANION GAP 11 mEq/L (8-16); BILIRUBIN,TOTAL 1.1 mg/dL (0.1-1.4); CALCIUM 9.8 mg/dL (8.5-10.4); CARBON DIOXIDE 22 mEq/l (22-31); CHLORIDE 104 mEq/L (97-110); CREATININE 0.9 mg/dL (0.6-1.0); GLOMERULAR FILTRATION RATE > 60; GLUCOSE 103 mg/dL (70-100); POTASSIUM 3.9 mEq/L (3.5-5.2); SODIUM 137 mEq/L (134-144)
[2016-12-15] MEDS ORDERED: ACETAMINOPHEN 325 MG TAB PO PRN (19:29)
[2016-12-15] MEDS ORDERED: ONDANSETRON DISINTEGRATING 4 MG TAB PO PRN (19:29)
[2016-12-15] MEDS ORDERED: ONDANSETRON 4 MG/2 ML VIAL IVP PRN (19:29)
[2016-12-15] MEDS ORDERED: IOPAMIDOL (ISOVUE 370) 100 ML BTL IV ONE (19:34)
[2016-12-15] MEDS ORDERED: ALBUTEROL 60 PUFFS/8 GM MDI IH PRN (20:55)
[2016-12-15] MEDS ORDERED: ALIROCUMAB 75 MG SQ SCH (21:00)
[2016-12-15] MEDS: traMADol 50 MG TAB PO PRN (21:15)
[2016-12-15] MEDS: METOPROLOL TARTRATE 25 MG TAB PO SCH (21:15)
--- NOTE | 2016-12-15 21:29 | GHP ---
[f rep st] HISTORY AND PHYSICAL DATE OF ADMISSION: 12/15/2016 CHIEF COMPLAINT: Chest wall infection. HISTORY OF PRESENT ILLNESS: The patient is a 71-year-old female with history of CAD status post CABG 08/12/2016 that was complicated by sternal wound infection in October. She underwent sternal wound debridement and wound VAC placement on 10/29/2016. Then had explantation of her left breast implant on and drain placed by Dr. Villaseñor. On 11/11/16, she underwent bilateral breast capsulectomy by Dr. Em. She was in his office today and had the wound VAC removed; he drained fluid from both breasts today and was sent to the emergency room for concern of a recurrent infection. She has had more intense pain in bilateral lower chest stanley. Has had fevers, chills, especially yesterday. She just completed a course of IV antibiotics on 12/11/16. No nausea, vomiting, diarrhea. Has had normal appetite and p.o. intake. REVIEW OF SYSTEMS: I completed a 10-point review of systems which was negative except as noted in the HPI. PAST MEDICAL HISTORY: 1. Chronic hypoxemic respiratory failure on 1 L. 2. CAD status post CABG complicated by sternal wound infection and MSSA bacteremia. 3. History of breast cancer diagnosed in 2011 status post XRT and chemo. 4. COPD. 5. Hypertension. 6. GERD. 7. Hot flashes. PAST SURGICAL HISTORY: CABG in August 2016, right nephrectomy due to a blood clot, bilateral mastectomies, other surgeries related to wound infection, as stated in the HPI. FAMILY HISTORY: Daughter with breast cancer. No CAD. No diabetes. SOCIAL HISTORY: Lives with her daughter Nella. No illicit drugs, tobacco, or alcohol. ALLERGIES: Adhesive tape, Keflex, levofloxacin, olmesartan, oxycodone, statins. HOME MEDICATIONS: Tramadol 50 mg q.4 hours p.r.n., venlafaxine 37 mg p.o. daily , Spiriva, omeprazole, metoprolol 12.5 mg b.i.d., Advair, aspirin 81 mg, Arimidex 1 mg daily, Praluent syringe every 14 days, albuterol, Tylenol. PHYSICAL EXAM: VITAL SIGNS: Temperature 37.6, blood pressure 170/90, heart rate 105, respiration rate 22, 95% on 2 L. GENERAL: In no acute distress. Smiling. HEENT: PERRLA, EOMI. Oropharynx clear. CV: Regular rate and rhythm. LUNGS: Clear to auscultation bilaterally. GI: Soft, nontender, nondistended. Positive bowel sounds. : No suprapubic tenderness. MUSCULOSKELETAL: Substernal surgical incision with purulent drainage and surrounding erythema up to neck. Not tender to palpation. Mildly foul smelling. SKIN: Warm, dry. NEURO: Cranial nerves II through XII intact. PSYCH: Alert and oriented x3. LABS: WBC 10.8, hemoglobin 11, hematocrit 32, platelets 209. Coagulation studies within normal. Sodium 137, potassium 3.9, chloride 104, carbon dioxide 22, anion gap 11, creatinine 0.9, glucose 103. Calcium 9.8, total bilirubin 1. IMAGING: CT chest: No evidence of pulmonary embolic disease. Mild extension of retrosternal gas from the patient's ununited, dehisced sternotomy. Pneumonia. Bypass grafts are patent. Early thoracic aortic aneurysm. ASSESSMENT AND PLAN: 1. Recurrent sternal infection: evidence of retrosternal gas on imaging. Dr. Silva with Infectious Disease was contacted and recommended daptomycin. Currently afebrile and hemodynamically stable. Dr. Em and Dr. Villaseñor both aware of case. 2. CAD: aspirin, beta-felipe. Not on statin due to allergy. 3. History of breast cancer: status post mastectomy bilaterally, XRT and chemotherapy. 4. Gastroesophageal reflux disease: PPI. 5. Chronic obstructive pulmonary disease. No evidence of exacerbation. 6. Chronic hypoxemic respiratory failure. Stable on 1 L oxygen. 7. Hot flashes. Continue home medications. 8. Diet: Regular. Will n.p.o. after midnight. 9. Deep venous thrombosis prophylaxis. Lovenox. DISPOSITION: Patient warrants inpatient admission given recurrent sternal infection requiring IV antibiotics and further evaluation. /[id number]/MODL MTDD
[2016-12-15] MEDS: FLUTICASONE/SALMETER 250/50MCG DISKUS IH SCH (22:01)
[2016-12-16] MEDS: traMADol 50 MG TAB PO PRN ×4 (01:23→20:49)
[2016-12-16 04:37] LABS: HEMOGLOBIN 10.1 g/dL (12.6-16.3); MEAN CELL HEMOGLOBIN 31.8 pg (27.9-34.1); MEAN CELL HEMOGLOBIN CONCENTR. 32.6 g/dL (32.4-36.7); MEAN CELL VOLUME 97.5 fL (81.5-99.8); RED BLOOD CELL COUNT 3.18 10^6/uL (4.18-5.33); RED CELL DISTRIBUTION WIDTH 15.3 % (11.5-15.2)
[2016-12-16 04:48] LABS: ANION GAP 13 mEq/L (8-16); CALCIUM 9.5 mg/dL (8.5-10.4); CARBON DIOXIDE 20 mEq/l (22-31); CHLORIDE 104 mEq/L (97-110); CREATININE 0.9 mg/dL (0.6-1.0); GLOMERULAR FILTRATION RATE > 60; GLUCOSE 112 mg/dL (70-100); POTASSIUM 3.5 mEq/L (3.5-5.2); SODIUM 137 mEq/L (134-144)
--- NOTE | 2016-12-16 07:58 | CPEKG ---
Heart Rate: 106 RR Interval: 566 P-R Interval: 192 QRSD Interval: 78 QT Interval: 332 QTC Interval: 441 P [place]: 68 QRS [place]: 66 T Wave [place]: 37 EKG Severity - BORDERLINE ECG - EKG Impression: SINUS TACHYCARDIA EKG Impression: BORDERLINE INFERIOR Q WAVES Electronically Signed By: Nam Harding 16-Dec-2016 09:02:53
[2016-12-16] MEDS: NS IV SCH (08:55)
[2016-12-16] MEDS: DAPTOMYCIN IV SCH (08:55)
[2016-12-16] MEDS ORDERED: TIOTROPIUM INHALER 18 MCG/DOSE 5 DOSE/MDI IH SCH (09:00)
[2016-12-16] MEDS: FLUTICASONE/SALMETER 250/50MCG DISKUS IH SCH ×2 (09:33→21:21)
--- NOTE | 2016-12-16 09:33 | PCMIDPN ---
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 Patient also had serosanguineous fluid removed by Dr. Pena yesterday from breast area. Clinical findings concerning for recurrent sternal infection. Have resumed daptomycin therapy and repeated blood cultures. Findings reviewed with Dr. Villaseñor will evaluate further. Call placed to Dr. Pena to review from Plastic surgery perspective. Check baseline CPK with initiation of daptomycin. Follow- up blood cultures as available. 12/16/16 09:28 12/16/16 09:30 12/16/16 09:31 Subjective: Patient well known to me from prior care for sternal osteomyelitis and breast implant infection with associated MSSA bacteremia. Implants removed during last hospitalization as well as patient had sternal debridement with flap closure. She completed a 6 week course of IV antibiotic therapy last week; daptomycin was initial therapy which was transition to ertapenem to complete therapy given concerns regarding vancomycin use in the setting of solitary kidney and prior renal insufficiency as well as cephalosporin allergy. Patient complains of pain around the sternal region. Patient notes that Dr. Pena removed serosanguineous appearing fluid from both breast regions yesterday. She did not note any fever or chills prior to admission but did describe malaise. Overnight she did have a temperature reaching 38.8. Please see my Lisa note dated 12/08/2016 for additional details. Objective: Vital Signs Temp Pulse Resp BP Pulse Ox 37.5 C 101 H 17 128/77 H 95 12/16/16 08:00 12/16/16 08:00 12/16/16 08:00 12/16/16 08:00 12/16/16 08:00 Laboratory Results 12/16/16 03:50 12/16/16 03:50 12/15/16 12/16/16 12/17/16 05:59 05:59 05:59 Intake Total 125 Output Total 500 Balance -375 Daptomycin # 1 Blood cultures x2 pending CT scan of chest reviewed which shows substernal fluid with some admixed air; no significant collections in breast region; images reviewed and interpreted by me with Radiology today. - Physical Exam General Appearance: alert, no apparent distress EENT: pharynx normal, No scleral icterus, No conjunctival petechiae Respiratory: lungs clear (Anterolaterally), No respiratory distress Cardiac/Chest: regular rate, rhythm, other (Sternotomy site with purulent drainage and fibrinous slough along entirety of margins; some air bubbles from superior margin; faint erythema surrounding superior and lateral margin in right upper chest; breast incisions intact without drainage or overlying erythema; mildly tender on left), No systolic murmur Extremities: No inflammation Abdomen: non-tender, No distended Skin: No embolic lesions ICD10 Worksheet Patient Problems: Problems Problem Status Onset Cellulitis Acute Mediastinitis Acute ASTRID (acute kidney injury) Acute Cellulitis Acute Breast cancer Chronic CAD, multiple vessel Chronic COPD (chronic obstructive pulmonary disease) Chronic Carotid artery disease Chronic FH: CABG (coronary artery bypass surgery) Chronic History of mastectomy Chronic History of nephrectomy, unilateral Chronic Hyperlipemia Chronic Hypertension 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
--- NOTE | 2016-12-16 09:59 | CPEKG ---
Heart Rate: 108 RR Interval: 556 P-R Interval: 180 QRSD Interval: 76 QT Interval: 320 QTC Interval: 429 P [place]: 70 QRS [place]: 65 T Wave [place]: 23 EKG Severity - OTHERWISE NORMAL ECG - EKG Impression: SINUS TACHYCARDIA Electronically Signed By: Reji Angel 16-Dec-2016 21:57:35
--- NOTE | 2016-12-16 11:55 | HOSPPROG ---
Hospitalist Progress Note Assessment/Plan: # recurrent sternal wound osteo - hx MSSA bacteremia s/p iv abx x 6 weeks (dapto and invanz) - restart dapto - appreciate ID and CT surgery # CAD s/p CABG - asa/metop; no statin d/t allergy # sepsis d/t sternal osteo - no e/o end organ damage # early thoracic aneurysm - outpatient f/u # COPD/chronic hypoxic resp failure - 1L O2 # hx breast cancer s/p XRT and chemo # GERD - ppi ## chart reviewed CTA reviewed Subjective: ongoing redness across chest Objective: Vital Signs Temp Pulse Resp BP Pulse Ox 37.5 C 101 H 17 128/77 H 95 12/16/16 08:00 12/16/16 08:00 12/16/16 08:00 12/16/16 08:00 12/16/16 08:00 Laboratory Results 12/16/16 03:50 12/16/16 03:50 12/15/16 12/16/16 12/17/16 05:59 05:59 05:59 Intake Total 125 Output Total 500 Balance -375 PT 13.5 SEC (12.0-15.0) 12/15/16 18:20 INR 1.04 (0.83-1.16) 12/15/16 18:20 - Physical Exam Constitutional: no apparent distress, appears nourished Cardiovascular: regular rate and rhythym, no murmur, rub, or gallop, other ( chest with open sternal wound with gross purulence, erythema across upper chest) Respiratory: no respiratory distress, no rales or rhonchi, clear to auscultation Gastrointestinal: normoactive bowel sounds, soft, non-tender abdomen, no palpable masses ICD10 Worksheet Patient Problems: Problems Problem Status Onset Cellulitis Acute Mediastinitis Acute ASTRID (acute kidney injury) Acute Cellulitis Acute FH: CABG (coronary artery bypass surgery) Chronic S/P CABG x 4 Chronic 08/12/16 COPD (chronic obstructive pulmonary disease) Chronic History of nephrectomy, unilateral Chronic History of mastectomy Chronic Breast cancer Chronic Hypertension Chronic Hyperlipemia Chronic CAD, multiple vessel Chronic Carotid artery disease Chronic MONIQUE on CPAP 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
[2016-12-16] MEDS: ANASTROZOLE 1 MG TAB PO SCH (12:43)
[2016-12-16] MEDS: ASPIRIN EC 81 MG TAB PO SCH (12:43)
[2016-12-16] MEDS: VENLAFAXINE XR 37.5 MG CAP PO SCH (12:44)
[2016-12-16] MEDS: METOPROLOL TARTRATE 25 MG TAB PO SCH ×2 (12:44→20:46)
[2016-12-16] MEDS: PANTOPRAZOLE SODIUM 40 MG TAB PO SCH (12:44)
--- NOTE | 2016-12-16 13:10 | WOCRNPDOC ---
WOCRN Advanced Assessment Note - Skin Integrity Problem, Advanced Assess Chest Surgical Wound/Incision Dressing Type: ABD Pad, Gauze, Xeroform (thin strip in base) Dressing Description: Saturated Exudate Amount: Excessive Exudate Color: Yellow Exudate Characteristic(s): Seropurulent Integumentary Issue Intervention: Dressing Changed, Dressing Initialed & Dated Bethanie Wound Tissue: Erythema, Hot, Swollen, Indurated, Taught Bethanie Wound Swelling: Severe Wound Bed Color: Yellow Wound Bed Constitution: Smooth Tissue, Adhered Slough (90%) Wound Edges: Well Defined Site Odor: Slight, Musky Site Measurement - Head-to-Toe Length X Width X Depth (cm): 10 x 1.5 x 1.5. Tunnel @ 12 o'clock: 0.5 cm d. Tunnel @ 6 o'clock: 1.0 cm d Skin Integrity Problem Comment: Upon removal of ABD dressing placed earlier this morning following Dr. Silva's ID consult, copious amount of seropurulent fluid was proceeding from wound, most notably from opening at 12 o'clock. The intact skin adjacent to this proximal aspect of the wound is reddened, firm and tender to palpation, as reported by patient. During measurement using a sterile cotton-tipped swab, it was observed that the fundus of the proximal (12 o'clock ) tunnel has a friable texture, and that the fluids proceed from this location with a bubbling activity that appears to correspond to patient's respiration. The base of the wound is almost entirely occluded by the presence of a thick, adherent slough. Evaluated surgical site with Dr. Nazario, and procured wound culture following irrigation of wound. The periwound skin was protected from wound drainage by an application of skin prep; a sterile gauze 4x4 dressing sponge, lightly moistened with sterile NS was placed into wound base; secured with an ABD and hypoallergenic atraumatic tape. While awaiting surgical consult , continuing BID/PRN [id number] dressing changes are indicated. Babar w/ JOSEFINA Medina, in room assisting.
[2016-12-16] MEDS: SPIRIVA RESPIMAT IH SCH (14:32)
[2016-12-16] MEDS: NS 1,000 ML IV SCH (20:49)
[2016-12-17 04:48] LABS: % IMMATURE GRANULYOCYTES 0.4 % (0.0-1.1); ABSOLUTE IMMATURE GRANULOCYTES 0.03 10^3/uL (0.00-0.10); ADD DIFF? NO; ADD MORPH? NO; ADD SCAN? NO; ATYPICAL LYMPHOCYTE FLAG 0 (0-99); FRAGMENT RBC FLAG 0 (0-99); LEFT SHIFT FLG 0 (0-99); LIPEMIA HEMOLYSIS FLAG 80 (0-99); MEAN CELL HEMOGLOBIN 32.4 pg (27.9-34.1); MEAN CELL HEMOGLOBIN CONCENTR. 32.1 g/dL (32.4-36.7); MEAN CELL VOLUME 100.7 fL (81.5-99.8); PLATELET CLUMPS FLAG 20 (0-99); PLATELET COUNT 172 10^3/uL (150-400); RED BLOOD CELL COUNT 2.78 10^6/uL (4.18-5.33); RED CELL DISTRIBUTION WIDTH 15.3 % (11.5-15.2)
[2016-12-17 05:29] LABS: ANION GAP 11 mEq/L (8-16); CALCIUM 9.1 mg/dL (8.5-10.4); CARBON DIOXIDE 21 mEq/l (22-31); CHLORIDE 106 mEq/L (97-110); GLOMERULAR FILTRATION RATE 54; GLUCOSE 117 mg/dL (70-100); POTASSIUM 3.9 mEq/L (3.5-5.2); SODIUM 138 mEq/L (134-144)
[2016-12-17] MEDS ORDERED: FLUTICASONE NASAL 120 SPRAYS/16 GM MDI EACHNARE PRN ×2 (07:46→08:00)
[2016-12-17] MEDS ORDERED: TIOTROPIUM BROMIDE IH SCH (09:00)
[2016-12-17] MEDS: FLUTICASONE/SALMETER 250/50MCG DISKUS IH SCH ×2 (09:21→20:52)
[2016-12-17] MEDS: SPIRIVA RESPIMAT IH SCH (09:22)
[2016-12-17] MEDS: CYANO/VITAMIN B12 1000 MCG TAB PO SCH (09:41)
[2016-12-17] MEDS: ANASTROZOLE 1 MG TAB PO SCH (09:42)
[2016-12-17] MEDS: METOPROLOL TARTRATE 25 MG TAB PO SCH ×2 (09:42→21:56)
[2016-12-17] MEDS: VENLAFAXINE XR 37.5 MG CAP PO SCH (09:43)
[2016-12-17] MEDS: PANTOPRAZOLE SODIUM 40 MG TAB PO SCH (09:44)
[2016-12-17] MEDS: ASPIRIN EC 81 MG TAB PO SCH (09:44)
[2016-12-17] MEDS: traMADol 50 MG TAB PO PRN ×2 (09:46→22:04)
[2016-12-17] MEDS: NS IV SCH (10:02)
[2016-12-17] MEDS: DAPTOMYCIN IV SCH (10:02)
--- NOTE | 2016-12-17 10:44 | PCMIDPN ---
Assessment/Plan: 1. 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 Silva. Patient will have sternal debridement on Tuesday or Tuesday of next week. Will place PICC line as long as repeat blood cultures are sterile for 48 hours. Subjective: In good spirits in spite of everything. Sternal wound is now draining copious amounts of purulence. Denies chest pain per se. Objective: Daptomycin 425 mg IV daily T-max 37.3degrees Vital Signs Temp Pulse Resp BP Pulse Ox 36.5 C 82 19 107/64 90 L 12/17/16 07:35 12/17/16 07:35 12/17/16 07:35 12/17/16 07:35 12/17/16 07:35 Microbiology 12/16/16 12:00 Gram Stain - Final Breast - Swab Laboratory Results 12/17/16 03:58 12/17/16 03:58 12/16/16 12/17/16 12/18/16 05:59 05:59 05:59 Intake Total 125 1350 300 Output Total 500 1300 Balance -375 50 300 Blood cultures from December 15 x2 are pending Breast fluid: 2+ GPC's Cultures growing Staph aureus CK 22 from December 16 - Physical Exam General Appearance: alert, no apparent distress EENT: pharynx normal, No scleral icterus, No thrush Cardiac/Chest: other (Dehisced sternum with copious green purulence emanating from wound. 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
--- NOTE | 2016-12-17 17:08 | WOCRNPDOC ---
WOCRN Advanced Assessment Note - Skin Integrity Problem, Advanced Assess Chest Surgical Wound/Incision Dressing Type: ABD Pad, Gauze Dressing Description: Clean/Dry, Intact Exudate Amount: Scant Exudate Color: Clear, Yellow Exudate Characteristic(s): Serous Integumentary Issue Intervention: Dressing Changed (4x4 and ABD: sterile NS [id number]) Bethanie Wound Tissue: Erythema, Shiny Bethanie Wound Swelling: Mild Wound Bed Color: Yellow Wound Bed Constitution: Adhered Slough Wound Edges: Well Defined Site Odor: None Skin Integrity Problem Comment: Follow-up: Small changes observed: Drainage appears to have slowed, and no odor was detected during this visit. Was informed that surgery pending next 12/21, therefore additional support for wound care was initiated by adding Vashe soaks to BID dressing changes. Educated JOSEFINA Villeda and patient on procedure and use via demo. Next follow up on Tuesday.
--- NOTE | 2016-12-17 17:23 | HOSPPROG ---
Hospitalist Progress Note Assessment/Plan: Patient is a 71 y/o female w hx of CAD s/p CABG in August of 2016. She underwent sternal wound debridement and wound vac on 10/29/16. The had an infection of her left breast implant in addition. Today is my first day caring for her/ chart reviewed. # recurrent sternal wound osteo - hx MSSA bacteremia s/p iv abx x 6 weeks - Dapto - appreciate ID and CT surgery - likely surgery next week w removal of sternum (reviewed her care with CV surgery PA) # CAD s/p CABG - asa/metop; no statin d/t allergy # sepsis d/t sternal osteo - no e/o end organ damage # early thoracic aneurysm - outpatient f/u # COPD/chronic hypoxic resp failure - 1L O2 # hx breast cancer s/p XRT and chemo # GERD - ppi #dvt prophylaxis: LMWH Subjective: Sonia is having no pain during my evaluation/ anxious to get better. Objective: Vital Signs Temp Pulse Resp BP Pulse Ox 36.8 C 88 18 89/52 L 90 L 12/17/16 12:00 12/17/16 16:00 12/17/16 16:00 12/17/16 16:00 12/17/16 16:00 Microbiology 12/16/16 12:00 Gram Stain - Final Breast - Swab Laboratory Results 12/17/16 03:58 12/17/16 03:58 12/16/16 12/17/16 12/18/16 05:59 05:59 05:59 Intake Total 125 1350 1050 Output Total 500 1300 Balance -569 38 5584 PT 13.5 SEC (12.0-15.0) 12/15/16 18:20 INR 1.04 (0.83-1.16) 12/15/16 18:20 - Physical Exam Constitutional: no apparent distress Eyes: PERRL Ears, Nose, Mouth, Throat: hearing normal Cardiovascular: no murmur, rub, or gallop Respiratory: no respiratory distress, reduced air movement Gastrointestinal: normoactive bowel sounds Skin: warm, normal color Musculoskeletal: no muscle tenderness Neurologic: AAOx3 Psychiatric: interacting appropriately ICD10 Worksheet Patient Problems: Problems Problem Status Onset Cellulitis Acute Mediastinitis Acute ASTRID (acute kidney injury) Acute Cellulitis Acute Breast cancer Chronic CAD, multiple vessel Chronic COPD (chronic obstructive pulmonary disease) Chronic Carotid artery disease Chronic FH: CABG (coronary artery bypass surgery) Chronic History of mastectomy Chronic History of nephrectomy, unilateral Chronic Hyperlipemia Chronic Hypertension 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
[2016-12-17] MEDS ORDERED: POLYETHYLENE GLYCOL 3350 17 GM PKT PO PRN (18:10)
[2016-12-17] MEDS ORDERED: MAGNESIUM HYDROXIDE 30 ML UDCUP PO PRN (18:10)
[2016-12-17] MEDS ORDERED: BISACODYL 10 MG SUPP PR PRN (18:10)
[2016-12-17] MEDS ORDERED: LACTULOSE 20 GM/30 ML UDCUP PO PRN (18:10)
[2016-12-17] MEDS: SENNOSIDES/DOCUSATE SODIUM TAB PO SCH (21:59)
[2016-12-17] MEDS: NS 1,000 ML IV SCH (23:25)
[2016-12-18] MEDS: traMADol 50 MG TAB PO PRN ×3 (07:54→21:01)
[2016-12-18] MEDS: SPIRIVA RESPIMAT IH SCH (08:28)
[2016-12-18] MEDS: FLUTICASONE/SALMETER 250/50MCG DISKUS IH SCH ×2 (08:28→21:02)
[2016-12-18] MEDS ORDERED: ALTEPLASE 2 MG VIAL IVP PRN (09:31)
[2016-12-18] MEDS: DAPTOMYCIN IV SCH (09:38)
[2016-12-18] MEDS: NS IV SCH (09:38)
[2016-12-18] MEDS: ANASTROZOLE 1 MG TAB PO SCH (09:42)
[2016-12-18] MEDS: SENNOSIDES/DOCUSATE SODIUM TAB PO SCH ×2 (09:42→20:59)
[2016-12-18] MEDS: METOPROLOL TARTRATE 25 MG TAB PO SCH ×2 (09:43→21:00)
[2016-12-18] MEDS: CYANO/VITAMIN B12 1000 MCG TAB PO SCH (09:46)
[2016-12-18] MEDS: VENLAFAXINE XR 37.5 MG CAP PO SCH (09:46)
[2016-12-18] MEDS: PANTOPRAZOLE SODIUM 40 MG TAB PO SCH (09:46)
[2016-12-18] MEDS: ASPIRIN EC 81 MG TAB PO SCH (09:46)
--- NOTE | 2016-12-18 12:00 | PCMIDPN ---
Assessment/Plan: 1. 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 Silva. Patient will have sternal debridement on Tuesday or Tuesday of next week. PICC line today. 12/18/16 11:58 Subjective: In good spirits. No significant complaints. Objective: Daptomycin 425 mg IV daily day 3 T-max 38.2degrees Vital Signs Temp Pulse Resp BP Pulse Ox 36.8 C 85 18 122/75 H 94 12/18/16 09:17 12/18/16 09:43 12/18/16 09:17 12/18/16 09:43 12/18/16 09:17 Microbiology 12/16/16 12:00 Gram Stain - Final Breast - Swab Wound Culture - Final Staphylococcus Aureus Laboratory Results 12/17/16 03:58 12/17/16 03:58 12/17/16 12/18/16 12/19/16 05:59 05:59 05:59 Intake Total 1350 1450 Output Total 1300 550 600 Balance 50 900 -600 Sternal cultures with MSSA Blood cultures negative from December 15 - Physical Exam General Appearance: alert, no apparent distress EENT: pharynx normal, No scleral icterus, No thrush Respiratory: lungs clear Cardiac/Chest: other (Erythema along superior border of sternum looks better. 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
--- NOTE | 2016-12-18 14:47 | HOSPPROG ---
Hospitalist Progress Note Assessment/Plan: 71 y/o female w hx of CAD s/p CABG in August of 2016. She underwent sternal wound debridement and wound vac on 10/29/16. The had an infection of her left breast implant in addition. Today is my first day caring for her/ chart reviewed. recurrent sternal wound osteo - hx MSSA bacteremia s/p iv abx x 6 weeks - Daptomycin per ID - appreciate ID and CT surgery - likely surgery next week w removal of sternum (reviewed her care with CV surgery PA) CAD s/p CABG - asa/metop; no statin d/t allergy sepsis d/t sternal osteo - no e/o end organ damage early thoracic aneurysm - outpatient f/u COPD/chronic hypoxic resp failure - 1L O2 hx breast cancer s/p XRT and chemo GERD - ppi dvt prophylaxis: LMWH Subjective: case d/w dr torres Objective: Vital Signs Temp Pulse Resp BP Pulse Ox 36.9 C 85 18 103/63 95 12/18/16 12:00 12/18/16 12:00 12/18/16 12:00 12/18/16 12:00 12/18/16 12:00 Microbiology 12/16/16 12:00 Gram Stain - Final Breast - Swab Wound Culture - Final Staphylococcus Aureus Laboratory Results 12/17/16 03:58 12/17/16 03:58 12/17/16 12/18/16 12/19/16 05:59 05:59 05:59 Intake Total 1350 1450 Output Total 1300 550 600 Balance 50 900 -600 PT 13.5 SEC (12.0-15.0) 12/15/16 18:20 INR 1.04 (0.83-1.16) 12/15/16 18:20 - Physical Exam Constitutional: no apparent distress, appears nourished, not in pain Eyes: PERRL, anicteric sclera Ears, Nose, Mouth, Throat: moist mucous membranes, hearing normal Cardiovascular: regular rate and rhythym, no murmur, rub, or gallop Respiratory: no respiratory distress, no rales or rhonchi Gastrointestinal: normoactive bowel sounds, soft, non-tender abdomen Genitourinary: No herring in urethra Skin: warm, normal color Musculoskeletal: full muscle strength, no muscle tenderness Neurologic: AAOx3 ICD10 Worksheet Patient Problems: Problems Problem Status Onset Cellulitis Acute Mediastinitis Acute ASTRID (acute kidney injury) Acute Cellulitis Acute Breast cancer Chronic CAD, multiple vessel Chronic COPD (chronic obstructive pulmonary disease) Chronic Carotid artery disease Chronic FH: CABG (coronary artery bypass surgery) Chronic History of mastectomy Chronic History of nephrectomy, unilateral Chronic Hyperlipemia Chronic Hypertension 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
[2016-12-18 16:06] LABS: SEDIMENTATION RATE 56 MM/HR (0-30)
[2016-12-19] MEDS: traMADol 50 MG TAB PO PRN ×3 (00:41→21:24)
[2016-12-19 04:43] LABS: ALANINE AMINOTRANSFERASE 32 IU/L (9-52); ALBUMIN 2.7 g/dL (3.5-5.0); ALKALINE PHOSPHATASE 174 IU/L (38-126); ANION GAP 8 mEq/L (8-16); ASPARTATE AMINOTRANSFERASE 24 IU/L (14-46); BILIRUBIN,TOTAL 0.5 mg/dL (0.1-1.4); CALCIUM 8.9 mg/dL (8.5-10.4); CARBON DIOXIDE 22 mEq/l (22-31); CHLORIDE 109 mEq/L (97-110); CREATININE 0.8 mg/dL (0.6-1.0); GLOMERULAR FILTRATION RATE > 60; GLUCOSE 105 mg/dL (70-100); POTASSIUM 3.8 mEq/L (3.5-5.2); SODIUM 139 mEq/L (134-144); TOTAL PROTEIN 5.5 g/dL (6.3-8.2)
[2016-12-19] MEDS: SPIRIVA RESPIMAT IH SCH (08:15)
[2016-12-19] MEDS: FLUTICASONE/SALMETER 250/50MCG DISKUS IH SCH ×2 (08:16→19:58)
[2016-12-19] MEDS: SENNOSIDES/DOCUSATE SODIUM TAB PO SCH ×2 (10:07→20:39)
[2016-12-19] MEDS: CYANO/VITAMIN B12 1000 MCG TAB PO SCH (10:07)
[2016-12-19] MEDS: PANTOPRAZOLE SODIUM 40 MG TAB PO SCH (10:08)
[2016-12-19] MEDS: METOPROLOL TARTRATE 25 MG TAB PO SCH ×2 (10:10→20:46)
[2016-12-19] MEDS: ASPIRIN EC 81 MG TAB PO SCH (10:11)
[2016-12-19] MEDS: VENLAFAXINE XR 37.5 MG CAP PO SCH (10:11)
[2016-12-19] MEDS: ANASTROZOLE 1 MG TAB PO SCH (10:11)
[2016-12-19] MEDS: DAPTOMYCIN IV SCH (10:11)
[2016-12-19] MEDS: NS IV SCH (10:11)
[2016-12-19] MEDS: POLYETHYLENE GLYCOL 3350 17 GM PKT PO SCH (10:12)
--- NOTE | 2016-12-19 15:33 | HOSPPROG ---
Hospitalist Progress Note Assessment/Plan: 71 y/o female w hx of CAD s/p CABG in August of 2016. She underwent sternal wound debridement and wound vac on 10/29/16. The had an infection of her left breast implant in addition. Today is my first day caring for her/ chart reviewed. recurrent sternal wound osteo - hx MSSA bacteremia s/p iv abx x 6 weeks - Daptomycin per ID - appreciate ID and CT surgery - likely surgery next week w removal of sternum (reviewed her care with CV surgery PA) CAD s/p CABG - asa/metop; no statin d/t allergy sepsis d/t sternal osteo - no e/o end organ damage early thoracic aneurysm - outpatient f/u COPD/chronic hypoxic resp failure - 1L O2 hx breast cancer s/p XRT and chemo GERD - ppi dvt prophylaxis: LMWH Subjective: case d/w dr torres Objective: Vital Signs Temp Pulse Resp BP Pulse Ox 37.1 C 78 16 112/75 93 12/19/16 11:18 12/19/16 11:18 12/19/16 11:18 12/19/16 11:18 12/19/16 11:18 Microbiology 12/16/16 12:00 Gram Stain - Final Breast - Swab Wound Culture - Final Staphylococcus Aureus Laboratory Results 12/17/16 03:58 12/19/16 04:20 12/18/16 12/19/16 12/20/16 05:59 05:59 05:59 Intake Total 1450 2200 150 Output Total 550 1880 Balance 900 320 150 PT 13.5 SEC (12.0-15.0) 12/15/16 18:20 INR 1.04 (0.83-1.16) 12/15/16 18:20 - Physical Exam Constitutional: no apparent distress, appears nourished Eyes: PERRL, anicteric sclera Ears, Nose, Mouth, Throat: moist mucous membranes, hearing normal Cardiovascular: regular rate and rhythym, no murmur, rub, or gallop Respiratory: no respiratory distress, no rales or rhonchi Gastrointestinal: normoactive bowel sounds, soft, non-tender abdomen Genitourinary: No herring in urethra Skin: warm, normal color Musculoskeletal: full muscle strength, no muscle tenderness Neurologic: AAOx3 ICD10 Worksheet Patient Problems: Problems Problem Status Onset Cellulitis Acute Mediastinitis Acute ASTRID (acute kidney injury) Acute Cellulitis Acute Breast cancer Chronic CAD, multiple vessel Chronic COPD (chronic obstructive pulmonary disease) Chronic Carotid artery disease Chronic FH: CABG (coronary artery bypass surgery) Chronic History of mastectomy Chronic History of nephrectomy, unilateral Chronic Hyperlipemia Chronic Hypertension 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
[2016-12-20 06:08] LABS: % IMMATURE GRANULYOCYTES 0.4 % (0.0-1.1); ABSOLUTE IMMATURE GRANULOCYTES 0.02 10^3/uL (0.00-0.10); ADD DIFF? NO; ADD MORPH? NO; ADD SCAN? NO; ATYPICAL LYMPHOCYTE FLAG 30 (0-99); FRAGMENT RBC FLAG 0 (0-99); HEMATOCRIT 27.3 % (38.0-47.0); HEMOGLOBIN 9.1 g/dL (12.6-16.3); LEFT SHIFT FLG 0 (0-99); LIPEMIA HEMOLYSIS FLAG 80 (0-99); MEAN CELL HEMOGLOBIN CONCENTR. 33.3 g/dL (32.4-36.7); MEAN CELL VOLUME 96.1 fL (81.5-99.8); MEAN PLATELET VOLUME 10.3 fL (8.7-11.7); PLATELET CLUMPS FLAG 0 (0-99); PLATELET COUNT 201 10^3/uL (150-400); RED BLOOD CELL COUNT 2.84 10^6/uL (4.18-5.33); RED CELL DISTRIBUTION WIDTH 14.6 % (11.5-15.2)
[2016-12-20 06:47] LABS: ANION GAP 6 mEq/L (8-16); CALCIUM 9.3 mg/dL (8.5-10.4); CARBON DIOXIDE 26 mEq/l (22-31); CHLORIDE 107 mEq/L (97-110); CREATININE 0.7 mg/dL (0.6-1.0); GLOMERULAR FILTRATION RATE > 60; GLUCOSE 98 mg/dL (70-100); POTASSIUM 3.7 mEq/L (3.5-5.2); SODIUM 139 mEq/L (134-144)
[2016-12-20] MEDS: FLUTICASONE/SALMETER 250/50MCG DISKUS IH SCH ×2 (08:28→20:21)
[2016-12-20] MEDS: SPIRIVA RESPIMAT IH SCH (08:28)
[2016-12-20] MEDS: CYANO/VITAMIN B12 1000 MCG TAB PO SCH ×2 (09:52→10:53)
[2016-12-20] MEDS: PANTOPRAZOLE SODIUM 40 MG TAB PO SCH ×2 (09:52→10:53)
[2016-12-20] MEDS: VENLAFAXINE XR 37.5 MG CAP PO SCH ×2 (09:52→10:52)
[2016-12-20] MEDS: NS IV SCH (09:52)
[2016-12-20] MEDS: DAPTOMYCIN IV SCH (09:52)
[2016-12-20] MEDS: ANASTROZOLE 1 MG TAB PO SCH ×2 (09:52→10:53)
[2016-12-20] MEDS: METOPROLOL TARTRATE 25 MG TAB PO SCH ×2 (09:53→21:33)
[2016-12-20] MEDS: ASPIRIN EC 81 MG TAB PO SCH (10:53)
[2016-12-20] MEDS: POLYETHYLENE GLYCOL 3350 17 GM PKT PO SCH (10:55)
[2016-12-20] MEDS: SENNOSIDES/DOCUSATE SODIUM TAB PO SCH ×2 (10:56→22:18)
--- NOTE | 2016-12-20 16:28 | WOCRNPDOC ---
[facility] Advanced Assessment Note - Skin Integrity Problem, Advanced Assess Chest Surgical Wound/Incision Dressing Type: Gauze Dressing Description: Intact Exudate Amount: Scant Exudate Color: Clear Exudate Characteristic(s): Serous Integumentary Issue Intervention: Dressing Changed Bethanie Wound Tissue: Erythema Bethanie Wound Swelling: Mild Wound Bed Color: [place], Yellow Wound Bed Constitution: Smooth Tissue, Adhered Slough (<95% of wound bed) Wound Edges: Well Defined Site Odor: None Skin Integrity Problem Comment: Slight reduction/thinning of thick slough in wound base, but overall base surface coverage is present, with small sites of clean, smooth, red-pink tissue. Bubbling of secretions continues to be visible from opening at 12 o'clock in base. Periwound erythema is less pronounced and has receded from extending to neck, to now extending approx 3-4 cm distance from wound margin. Changed dressing using Vashe soak, then placement of new [id number] gauze. Drainage appears to have lessened since last week. JOSEFINA Otero present. Continuing present plan of care pending surgery anticipated for tomorrow.
--- NOTE | 2016-12-20 16:48 | HOSPPROG ---
Hospitalist Progress Note Assessment/Plan: 71 y/o female w hx of CAD s/p CABG in August of 2016. She underwent sternal wound debridement and wound vac on 10/29/16. The had an infection of her left breast implant in addition. Today is my first day caring for her/ chart reviewed. recurrent sternal wound osteo - hx MSSA bacteremia s/p iv abx x 6 weeks - Daptomycin per ID - appreciate ID and CT surgery - likely surgery tomorrow CAD s/p CABG - asa/metop; no statin d/t allergy sepsis d/t sternal osteo - no e/o end organ damage early thoracic aneurysm - outpatient f/u COPD/chronic hypoxic resp failure - 1L O2 hx breast cancer s/p XRT and chemo GERD - ppi dvt prophylaxis: LMWH Subjective: case d/w ct surgery PA. tele: no events (interp by me) Objective: Vital Signs Temp Pulse Resp BP Pulse Ox 36.8 C 98 20 151/97 H 91 L 12/20/16 15:33 12/20/16 15:33 12/20/16 15:33 12/20/16 15:33 12/20/16 15:33 Microbiology 12/16/16 12:00 Gram Stain - Final Breast - Swab Wound Culture - Final Staphylococcus Aureus Laboratory Results 12/20/16 05:50 12/20/16 05:50 12/19/16 12/20/16 12/21/16 05:59 05:59 05:59 Intake Total 2200 1150 Output Total 1880 600 Balance 320 550 PT 13.5 SEC (12.0-15.0) 12/15/16 18:20 INR 1.04 (0.83-1.16) 12/15/16 18:20 - Physical Exam Constitutional: no apparent distress, appears nourished Eyes: PERRL, anicteric sclera Ears, Nose, Mouth, Throat: moist mucous membranes, hearing normal Cardiovascular: regular rate and rhythym, no murmur, rub, or gallop Respiratory: no respiratory distress, no rales or rhonchi Gastrointestinal: normoactive bowel sounds, soft, non-tender abdomen Genitourinary: No herring in urethra Skin: warm, normal color Musculoskeletal: full muscle strength, no muscle tenderness Neurologic: AAOx3, sensation intact bilaterally ICD10 Worksheet Patient Problems: Problems Problem Status Onset Cellulitis Acute Mediastinitis Acute ASTRID (acute kidney injury) Acute Cellulitis Acute Breast cancer Chronic CAD, multiple vessel Chronic COPD (chronic obstructive pulmonary disease) Chronic Carotid artery disease Chronic FH: CABG (coronary artery bypass surgery) Chronic History of mastectomy Chronic History of nephrectomy, unilateral Chronic Hyperlipemia Chronic Hypertension 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
--- NOTE | 2016-12-20 17:42 | SOAPPROG ---
SOAP Progress Note Assessment/Plan: Assessment: Open sternal wound s/p CABG Plan: Operative debridement with VRAM flap closure tomorrow 12/21 at 3:00 Pm 12/20/16 17:39 Subjective: Feels much better since hospitalization Objective: Vital Signs Temp Pulse Resp BP Pulse Ox 36.8 C 98 20 151/97 H 91 L 12/20/16 15:33 12/20/16 15:33 12/20/16 15:33 12/20/16 15:33 12/20/16 15:33 Microbiology 12/16/16 12:00 Gram Stain - Final Breast - Swab Wound Culture - Final Staphylococcus Aureus Laboratory Results 12/20/16 05:50 12/20/16 05:50 12/19/16 12/20/16 12/21/16 05:59 05:59 05:59 Intake Total 2200 1150 Output Total 1880 600 Balance 320 550 PT 13.5 SEC (12.0-15.0) 12/15/16 18:20 INR 1.04 (0.83-1.16) 12/15/16 18:20 open sternal wound with improving cellulitis ICD10 Worksheet Patient Problems: Problems Problem Status Onset Cellulitis Acute Mediastinitis Acute ASTRID (acute kidney injury) Acute Cellulitis Acute Breast cancer Chronic CAD, multiple vessel Chronic COPD (chronic obstructive pulmonary disease) Chronic Carotid artery disease Chronic FH: CABG (coronary artery bypass surgery) Chronic History of mastectomy Chronic History of nephrectomy, unilateral Chronic Hyperlipemia Chronic Hypertension 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
--- NOTE | 2016-12-20 18:02 | PCMIDPN ---
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 Continue daptomycin. Sternal culture show growth of MSSA which remains daptomycin susceptible. Blood cultures are no growth. 12/20/16 17:43 12/20/16 17:45 12/20/16 18:02 Subjective: Patient feels better. No specific complaints. Feels like erythema over upper chest has decreased. Objective: Vital Signs Temp Pulse Resp BP Pulse Ox 36.8 C 98 20 151/97 H 91 L 12/20/16 15:33 12/20/16 15:33 12/20/16 15:33 12/20/16 15:33 12/20/16 15:33 Microbiology 12/16/16 12:00 Gram Stain - Final Breast - Swab Wound Culture - Final Staphylococcus Aureus Laboratory Results 12/20/16 05:50 12/20/16 05:50 12/19/16 12/20/16 12/21/16 05:59 05:59 05:59 Intake Total 2200 1150 Output Total 1880 600 Balance 320 550 ESR 56 MM/HR (0-30) H 12/17/16 03:58 C-Reactive Protein 335.7 mg/L (<10.0) H 12/18/16 03:58 Daptomycin # 5 Blood cultures x2 no growth Sternal cultures MSSA - Physical Exam General Appearance: alert, no apparent distress EENT: No thrush, No conjunctival petechiae Respiratory: lungs clear, No respiratory distress Cardiac/Chest: regular rate, rhythm, other (Erythema over upper chest has decreased; sternal packing not removed today), No systolic murmur Abdomen: non-tender, No distended Skin: No embolic lesions ICD10 Worksheet Patient Problems: Problems Problem Status Onset Cellulitis Acute Mediastinitis Acute ASTRID (acute kidney injury) Acute Cellulitis Acute Breast cancer Chronic CAD, multiple vessel Chronic COPD (chronic obstructive pulmonary disease) Chronic Carotid artery disease Chronic FH: CABG (coronary artery bypass surgery) Chronic History of mastectomy Chronic History of nephrectomy, unilateral Chronic Hyperlipemia Chronic Hypertension 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
[2016-12-20] MEDS: traMADol 50 MG TAB PO PRN ×2 (18:36→23:08)
[2016-12-21] MEDS: PANTOPRAZOLE SODIUM 40 MG TAB PO SCH (08:52)
[2016-12-21] MEDS: CYANO/VITAMIN B12 1000 MCG TAB PO SCH (08:52)
[2016-12-21] MEDS: METOPROLOL TARTRATE 25 MG TAB PO SCH ×2 (08:52→21:52)
[2016-12-21] MEDS: ANASTROZOLE 1 MG TAB PO SCH (08:53)
[2016-12-21] MEDS: POLYETHYLENE GLYCOL 3350 17 GM PKT PO SCH (08:53)
[2016-12-21] MEDS: NS IV SCH (08:53)
[2016-12-21] MEDS: ASPIRIN EC 81 MG TAB PO SCH (08:53)
[2016-12-21] MEDS: DAPTOMYCIN IV SCH (08:53)
[2016-12-21] MEDS: VENLAFAXINE XR 37.5 MG CAP PO SCH (08:53)
[2016-12-21] MEDS: SENNOSIDES/DOCUSATE SODIUM TAB PO SCH ×2 (08:54→19:29)
[2016-12-21] MEDS: SPIRIVA RESPIMAT IH SCH (09:25)
[2016-12-21] MEDS: FLUTICASONE/SALMETER 250/50MCG DISKUS IH SCH ×2 (09:26→21:37)
--- NOTE | 2016-12-21 11:07 | HOSPPROG ---
Hospitalist Progress Note Assessment/Plan: 71 y/o female w hx of CAD s/p CABG in August of 2016. She underwent sternal wound debridement and wound vac on 10/29/16. The had an infection of her left breast implant in addition. Today is my first day caring for her/ chart reviewed. recurrent sternal wound osteo - hx MSSA bacteremia s/p iv abx x 6 weeks - Daptomycin per ID - appreciate ID and CT surgery - surgery today CAD s/p CABG - asa/metop; no statin d/t allergy sepsis d/t sternal osteo - no e/o end organ damage septic physiology has resolved early thoracic aneurysm - outpatient f/u COPD/chronic hypoxic resp failure - 1L O2 hx breast cancer s/p XRT and chemo GERD - ppi dvt prophylaxis: LMWH Subjective: to OR today Objective: Vital Signs Temp Pulse Resp BP Pulse Ox 36.9 C 83 14 125/62 H 93 12/21/16 08:00 12/21/16 09:25 12/21/16 08:00 12/21/16 08:00 12/21/16 09:25 Microbiology 12/16/16 12:00 Gram Stain - Final Breast - Swab Wound Culture - Final Staphylococcus Aureus Laboratory Results 12/20/16 05:50 12/20/16 05:50 12/20/16 12/21/16 12/22/16 05:59 05:59 05:59 Intake Total 1150 800 Output Total 600 400 Balance 550 400 PT 13.5 SEC (12.0-15.0) 12/15/16 18:20 INR 1.04 (0.83-1.16) 12/15/16 18:20 - Physical Exam Constitutional: no apparent distress, appears nourished Eyes: PERRL, anicteric sclera Ears, Nose, Mouth, Throat: moist mucous membranes, hearing normal Cardiovascular: regular rate and rhythym, no murmur, rub, or gallop Respiratory: no respiratory distress, no rales or rhonchi Gastrointestinal: normoactive bowel sounds, soft, non-tender abdomen Genitourinary: No herring in urethra Skin: warm, normal color Musculoskeletal: full muscle strength, no muscle tenderness Neurologic: AAOx3 ICD10 Worksheet Patient Problems: Problems Problem Status Onset Cellulitis Acute Mediastinitis Acute ASTRID (acute kidney injury) Acute Cellulitis Acute Breast cancer Chronic CAD, multiple vessel Chronic COPD (chronic obstructive pulmonary disease) Chronic Carotid artery disease Chronic FH: CABG (coronary artery bypass surgery) Chronic History of mastectomy Chronic History of nephrectomy, unilateral Chronic Hyperlipemia Chronic Hypertension 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
[2016-12-21] MEDS ORDERED: LIDOCAINE 1% 30 ML SDV ONE (11:15)
[2016-12-21] MEDS ORDERED: BUPIVACAINE 0.5% 30 ML SDV ONE (11:15)
[2016-12-21] MEDS ORDERED: ceFAZolin 1 GM/5 ML SYR ONE (11:16)
[2016-12-21] MEDS ORDERED: GENTAMICIN SULFATE 80 MG/2 ML VIAL ONE (11:16)
[2016-12-21] MEDS ORDERED: BACITRACIN 50,000 UNITS/10 ML SYR IRR ONE (11:17)
--- NOTE | 2016-12-21 13:42 | PCMIDPN ---
Assessment/Plan: Assessment/Plan: 1. MSSA bacteremia with sternal osteomyelitis and recent breast implant infection, s/p removal of implant: - Ct's noted, gas in soft tissue. -Going to OR today for debridement, flap -on dapto. cpk, LFt stable -Continue with current therapy. Meds Dapto Subjective: Afebrile. pain under control. denies sob, cough, abd pain or diarrhea. Objective: Vital Signs Temp Pulse Resp BP Pulse Ox 37.0 C 74 16 146/83 H 92 12/21/16 12:00 12/21/16 12:00 12/21/16 12:00 12/21/16 12:00 12/21/16 12:00 Microbiology 12/16/16 12:00 Gram Stain - Final Breast - Swab Wound Culture - Final Staphylococcus Aureus Laboratory Results 12/20/16 05:50 12/20/16 05:50 12/20/16 12/21/16 12/22/16 05:59 05:59 05:59 Intake Total 1150 800 Output Total 600 400 Balance 550 400 ESR 56 MM/HR (0-30) H 12/17/16 03:58 C-Reactive Protein 335.7 mg/L (<10.0) H 12/18/16 03:58 - Physical Exam General Appearance: alert, no apparent distress Respiratory: lungs clear Cardiac/Chest: regular rate, rhythm, other (midline chest with erythema. 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
[2016-12-21] MEDS ORDERED: MIDAZOLAM 2 MG/2 ML VIAL ONE (14:27)
[2016-12-21] MEDS ORDERED: PROPOFOL 200 MG/20 ML VIAL ONE (15:03)
[2016-12-21] MEDS ORDERED: LIDOCAINE 2% 5 ML SDV ONE (15:03)
[2016-12-21] MEDS ORDERED: fentaNYL 100 MCG/2 ML INJ ONE ×5 (15:03→18:02)
[2016-12-21] MEDS ORDERED: ROCURONIUM 100 MG/10 ML VIAL ONE (15:03)
[2016-12-21] MEDS ORDERED: VANCOMYCIN 1 GM VIAL IV ONE (15:06)
[2016-12-21] MEDS ORDERED: ONDANSETRON 4 MG/2 ML VIAL ONE (16:54)
[2016-12-21] MEDS ORDERED: SUGAMMADEX SODIUM 200 MG/2 ML VIAL IVP ONE (16:54)
[2016-12-21] MEDS ORDERED: HYDROmorphONE/DILAUDID 1 MG/ML SYR ONE (17:44)
[2016-12-21 18:12] LABS: HEMATOCRIT 27.9 % (38.0-47.0); HEMOGLOBIN 9.1 g/dL (12.6-16.3)
[2016-12-21] MEDS: traMADol 50 MG TAB PO PRN (19:35)
--- NOTE | 2016-12-21 20:04 | GOP ---
[f rep st] OPERATIVE REPORT DATE OF OPERATION: 12/21/2016 SURGEON: Trent Pena Jr., MD DEODORIZER OPERATOR: Noah Britton MD. ANESTHESIA: General inhalational anesthesia. ANESTHESIOLOGIST: Darrius Chris MD. PREOPERATIVE DIAGNOSIS: 1. Open sternal wound, status post coronary artery bypass graft. 2. History of chest wall and sternal wound infection. POSTOPERATIVE DIAGNOSIS: PROCEDURE PERFORMED: 1. Sternal debridement of skin, soft tissue, muscle, and bone. 2. Sternal reconstruction with vertical rectus abdominis myocutaneous flap. 3. Abdominal wall closure with Strattice porcine graft. FINDINGS: ESTIMATED BLOOD LOSS: 100 cc. INDICATIONS: The patient is a delightful 71-year-old white female who has had very complicated post operative course following a coronary artery bypass grafting procedure performed several months ago. She has had continued drainage and signs of cellulitis and infection, and a nonhealing sternum, an d has required removal of both reconstructed breast implants as part of her course. She was doing w ell until last week when she developed significant discomfort and erythema at the superior aspect of the incision. The decision was made to go back to the operating room to debride all nonviable bone and soft tissue and place a skin, muscle flap into the wound to aide in wound closure. She was meenakshi en to the operating room today for that purpose. DESCRIPTION OF PROCEDURE: After the risks and benefits of the procedure were explained to the patie nt, highlighting bleeding, infection, recurrent wound infection, failure to heal, abdominal wall her niation, abdominal wall weakness, loss of muscle function, and need for additional procedures, a for mal operative consent was obtained. She was taken to the operating room. After adequate inhalation general anesthesia was provided by Dr. Darrius Chris, all involved area of scarred skin and expos ed sternum were marked for excision and the periphery was injected with 1% lidocaine containing adre naline. A vertical rectus myocutaneous flap was designed based on the right inferior mammary artery with a vertical skin paddle. The incisions for this were also injected with lidocaine containing a drenaline. She was prepped and draped in a normal sterile fashion. A procedure began with a sterna l debridement. Wide excision of skin, subcutaneous, tissue, and scar was performed with a #10 blade . The sternum was debrided using curette and rongeurs back until adequate bleeding, well-vasculariz ed tissue was achieved. Dr. Joe Villaseñor, her Cardiothoracic surgeon, came in at this point and agre ed that no further debridement was required based on vascularity and that all involved devitalized b one had been removed. The area was then irrigated multiple times with a double antibiotic solution and a double antibiotic soaked lap pad was placed over the wound bed. Attention was then turned to the flap, and an incision was made around the skin island and extending superiorly. Electrocautery was used to dissect down to the anterior rectus sheath. The anterior r ectus sheath was divided medially and laterally, and the anterior, medial, and lateral bellies of th e muscle were exposed. The deep inferior epigastric vessels were isolated, ligated, and cut. The i nferior insertion of the muscle was then released completely and the muscle was elevated from the po sterior rectus sheath. This was done to the superior origin, taking care to preserve both the deep inferior epigastric vessels as well as the superior lateral intercostal. A tunnel was then created and the myocutaneous flap was delivered into the sternal area. The rectus sheath was irrigated with double antibiotic saline solution, meticulous hemostasis was assured. The anterior rectus sheath w as closed using buried [id number] Nurolon sutures. The repair was reinforced with Strattice porcine dermal graft. This was soaked in double antibiotic saline solution, trimmed to provide a ni ce on-lay bolster for the anterior rectus sheath repair, and was sutured into place using 2-0 Prolen e suture. The Sonia fascia was then closed using 2-0 Vicryl suture. Prior to closure, a 15 round MICHI drain was placed, exiting through an inferior stab incision and sutu red into place. The skin edges were then closed and everted using surgical sherie. Hemostasis was assured in the sternal wound bed. The area was irrigated again thoroughly with double antibiotic s delma. The medial and lateral skin edges on the chest wall were elevated to accommodate the flap in set. The flap was inset with 2-0 Vicryl suture. Skin edges were reapproximated using everted deep dermal 3-0 Monocryl suture, and final skin eversion was carried out with surgical sherie. Prior to closure, a second 15 round drain was placed in the sternal wound bed exiting through an inferior in cision and sutured into place. There was good capillary refill to the skin paddle. Bacitracin, Xer oform, 4 x 4's were applied to the incisions. She had tape dressings placed and the drains placed t o bulb suction. She was extubated in the operating room, taken to the recovery room, awake, and in stable condition. DRAINS: 2 MICHI drains were placed. COMPLICATIONS: No complications. /[id number]/MODL
[2016-12-21] MEDS: HYDROmorphONE/DILAUDID 1 MG/ML SYR IVP PRN (22:11)
[2016-12-22] MEDS: HYDROmorphONE/DILAUDID 1 MG/ML SYR IVP PRN ×2 (04:36→20:37)
[2016-12-22 04:40] LABS: % IMMATURE GRANULYOCYTES 0.6 % (0.0-1.1); ABSOLUTE IMMATURE GRANULOCYTES 0.04 10^3/uL (0.00-0.10); ADD DIFF? NO; ADD MORPH? NO; ADD SCAN? NO; ATYPICAL LYMPHOCYTE FLAG 0 (0-99); FRAGMENT RBC FLAG 0 (0-99); HEMATOCRIT 25.4 % (38.0-47.0); HEMOGLOBIN 8.1 g/dL (12.6-16.3); LEFT SHIFT FLG 10 (0-99); LIPEMIA HEMOLYSIS FLAG 80 (0-99); MEAN CELL HEMOGLOBIN 31.9 pg (27.9-34.1); MEAN CELL HEMOGLOBIN CONCENTR. 31.9 g/dL (32.4-36.7); MEAN PLATELET VOLUME 10.5 fL (8.7-11.7); PLATELET CLUMPS FLAG 0 (0-99); PLATELET COUNT 213 10^3/uL (150-400); RED BLOOD CELL COUNT 2.54 10^6/uL (4.18-5.33); RED CELL DISTRIBUTION WIDTH 15.1 % (11.5-15.2)
[2016-12-22 05:12] LABS: ANION GAP 7 mEq/L (8-16); CALCIUM 9.1 mg/dL (8.5-10.4); CARBON DIOXIDE 25 mEq/l (22-31); CHLORIDE 107 mEq/L (97-110); GLOMERULAR FILTRATION RATE 54; GLUCOSE 92 mg/dL (70-100); POTASSIUM 4.3 mEq/L (3.5-5.2); SODIUM 139 mEq/L (134-144)
[2016-12-22] MEDS: FLUTICASONE/SALMETER 250/50MCG DISKUS IH SCH ×2 (08:57→22:10)
[2016-12-22] MEDS: SPIRIVA RESPIMAT IH SCH (08:57)
[2016-12-22] MEDS: NS IV SCH (09:22)
[2016-12-22] MEDS: DAPTOMYCIN IV SCH (09:22)
[2016-12-22] MEDS: METOPROLOL TARTRATE 25 MG TAB PO SCH ×2 (09:23→20:42)
[2016-12-22] MEDS: PANTOPRAZOLE SODIUM 40 MG TAB PO SCH ×2 (09:31→09:34)
[2016-12-22] MEDS: VENLAFAXINE XR 37.5 MG CAP PO SCH ×2 (09:31→09:34)
[2016-12-22] MEDS: CYANO/VITAMIN B12 1000 MCG TAB PO SCH ×2 (09:31→09:33)
[2016-12-22] MEDS: ASPIRIN EC 81 MG TAB PO SCH (09:32)
[2016-12-22] MEDS: HYDROmorphONE/DILAUDID 2 MG TAB PO PRN ×3 (09:36→22:12)
[2016-12-22] MEDS: SENNOSIDES/DOCUSATE SODIUM TAB PO SCH ×2 (09:36→20:42)
[2016-12-22] MEDS: POLYETHYLENE GLYCOL 3350 17 GM PKT PO SCH (09:37)
--- NOTE | 2016-12-22 11:16 | PCMIDPN ---
Assessment/Plan: Assessment: Late postoperative infection of sternal wound status post CABG. MSSA in multiple cultures dating back to 10/26/2016. Patient underwent surgical debridement yesterday and had a rectus muscle flap placed over the debrided bone of the sternum. She is continuing to be covered with daptomycin. Presumed neural be need for 6 weeks post debridement due to de facto sternal osteomyelitis. Plan: 1. Continue daptomycin. 2. Follow postsurgical course. Once cleared by surgery will arrange for continue daptomycin as an outpatient. Subjective: Patient is resting in her hospital bed. She states she has some soreness in the sternal area but generally she feels pretty good. No significant fevers or chills. Seems to be tolerating the daptomycin without issue. Has been ambulating in the duong today already. Objective: Daptomycin # 7 Vital Signs Temp Pulse Resp BP Pulse Ox 37.1 C 92 16 114/73 92 12/22/16 08:00 12/22/16 09:00 12/22/16 09:00 12/22/16 08:00 12/22/16 09:00 Laboratory Results 12/22/16 04:20 12/22/16 04:20 12/21/16 12/22/16 12/23/16 05:59 05:59 05:59 Intake Total 800 1470 Output Total 400 215 Balance 400 1255 ESR 56 MM/HR (0-30) H 12/17/16 03:58 C-Reactive Protein 335.7 mg/L (<10.0) H 12/18/16 03:58 - Physical Exam General Appearance: WD/WN, alert, no apparent distress, non-toxic Respiratory: lungs clear, normal breath sounds, No respiratory distress Cardiac/Chest: regular rate, rhythm, other (Postoperative wound mid sternum. Postoperative dressing still applied. 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
--- NOTE | 2016-12-22 12:50 | SOAPPROG ---
SOAP Progress Note Assessment/Plan: Assessment: Open sternal wound s/p CABG POD 1 s/p sternal debridement with VRAM flap closure Plan: Home when clear by admitting MD Regular diet, keep dressings clean and dry until follow up. Follow up at [facility] 12/27/16. Call for appt [phone] 12/20/16 17:39 12/22/16 12:44 Subjective: Abdominal pain with movement. Tolerating po well. Objective: Vital Signs Temp Pulse Resp BP Pulse Ox 37.5 C 93 16 94/61 L 90 L 12/22/16 11:51 12/22/16 11:51 12/22/16 11:51 12/22/16 11:51 12/22/16 11:51 Laboratory Results 12/22/16 04:20 12/22/16 04:20 12/21/16 12/22/16 12/23/16 05:59 05:59 05:59 Intake Total 800 1470 Output Total 400 215 Balance 400 1255 PT 13.5 SEC (12.0-15.0) 12/15/16 18:20 INR 1.04 (0.83-1.16) 12/15/16 18:20 flap warm and pink with good capillary refill. Drains ok output. 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
--- NOTE | 2016-12-22 16:14 | HOSPPROG ---
Hospitalist Progress Note Assessment/Plan: 71 y/o female w hx of CAD s/p CABG in August of 2016. She underwent sternal wound debridement and wound vac on 10/29/16. The had an infection of her left breast implant in addition. Today is my first day caring for her/ chart reviewed. recurrent sternal wound osteo - hx MSSA bacteremia s/p iv abx x 6 weeks - Daptomycin per ID - appreciate ID and CT surgery - surgery yesterday operative appearance not as bad as anticipiated CAD s/p CABG - asa/metop; no statin d/t allergy sepsis d/t sternal osteo - no e/o end organ damage septic physiology has resolved early thoracic aneurysm - outpatient f/u COPD/chronic hypoxic resp failure - 1L O2 hx breast cancer s/p XRT and chemo GERD - ppi dvt prophylaxis: LMWH dispo: will have pt and ot see in AM ID to set up outpatient daptomycin Subjective: case d/w akilah marroquin and elpidio Objective: Vital Signs Temp Pulse Resp BP Pulse Ox 37.5 C 93 16 94/61 L 90 L 12/22/16 11:51 12/22/16 11:51 12/22/16 11:51 12/22/16 11:51 12/22/16 11:51 Laboratory Results 12/22/16 04:20 12/22/16 04:20 12/21/16 12/22/16 12/23/16 05:59 05:59 05:59 Intake Total 800 1470 Output Total 400 215 Balance 400 1255 PT 13.5 SEC (12.0-15.0) 12/15/16 18:20 INR 1.04 (0.83-1.16) 12/15/16 18:20 - Physical Exam Constitutional: no apparent distress, appears nourished Eyes: PERRL, anicteric sclera Ears, Nose, Mouth, Throat: moist mucous membranes, hearing normal Cardiovascular: regular rate and rhythym, no murmur, rub, or gallop, other ( large chest bandage) Respiratory: no respiratory distress, no rales or rhonchi Gastrointestinal: normoactive bowel sounds, soft, non-tender abdomen Genitourinary: herring in urethra Skin: warm, normal color Musculoskeletal: full muscle strength Neurologic: AAOx3 Psychiatric: interacting appropriately ICD10 Worksheet Patient Problems: Problems Problem Status Onset Cellulitis Acute Mediastinitis Acute ASTRID (acute kidney injury) Acute Cellulitis Acute Breast cancer Chronic CAD, multiple vessel Chronic COPD (chronic obstructive pulmonary disease) Chronic Carotid artery disease Chronic FH: CABG (coronary artery bypass surgery) Chronic History of mastectomy Chronic History of nephrectomy, unilateral Chronic Hyperlipemia Chronic Hypertension 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
[2016-12-23] MEDS: HYDROmorphONE/DILAUDID 1 MG/ML SYR IVP PRN ×2 (05:29→22:34)
[2016-12-23] MEDS: HYDROmorphONE/DILAUDID 2 MG TAB PO PRN ×3 (09:41→18:36)
[2016-12-23] MEDS: CYANO/VITAMIN B12 1000 MCG TAB PO SCH (09:46)
[2016-12-23] MEDS: PANTOPRAZOLE SODIUM 40 MG TAB PO SCH (09:46)
[2016-12-23] MEDS: VENLAFAXINE XR 37.5 MG CAP PO SCH (09:46)
[2016-12-23] MEDS: METOPROLOL TARTRATE 25 MG TAB PO SCH ×2 (09:46→21:12)
[2016-12-23] MEDS: ASPIRIN EC 81 MG TAB PO SCH (09:46)
[2016-12-23] MEDS: ANASTROZOLE 1 MG TAB PO SCH (09:46)
[2016-12-23] MEDS: SENNOSIDES/DOCUSATE SODIUM TAB PO SCH ×2 (09:48→21:12)
[2016-12-23] MEDS: DAPTOMYCIN IV SCH (09:48)
[2016-12-23] MEDS: POLYETHYLENE GLYCOL 3350 17 GM PKT PO SCH (09:48)
[2016-12-23] MEDS: NS IV SCH (09:48)
[2016-12-23] MEDS: SPIRIVA RESPIMAT IH SCH (09:50)
[2016-12-23] MEDS: FLUTICASONE/SALMETER 250/50MCG DISKUS IH SCH ×2 (09:52→22:24)
--- NOTE | 2016-12-23 10:44 | PCMIDPN ---
Assessment/Plan: Assessment: Late postoperative infection of sternal wound status post CABG. MSSA in multiple cultures dating back to 10/26/2016. Patient underwent surgical debridement 2 days ago and had a rectus muscle flap placed over the debrided bone of the sternum. She is continuing to be covered with daptomycin. Presumed duration need for 6 weeks post debridement due to de facto sternal osteomyelitis. Plan: 1. Continue daptomycin. 2. Check CPK levels. 3. Follow postsurgical course. Once cleared by surgery will arrange for continue daptomycin as an outpatient. Subjective: Patient is resting comfortably in her hospital bed. She denies any new complaint. States that she continues to have pain in the sternal area. Objective: Daptomycin #8 Vital Signs Temp Pulse Resp BP Pulse Ox 36.8 C 86 16 110/66 92 12/23/16 08:00 12/23/16 08:00 12/23/16 08:00 12/23/16 08:00 12/23/16 09:15 Laboratory Results 12/22/16 04:20 12/22/16 04:20 12/22/16 12/23/16 12/24/16 05:59 05:59 05:59 Intake Total 1470 1105 Output Total 215 43 Balance 1255 1062 ESR 56 MM/HR (0-30) H 12/17/16 03:58 C-Reactive Protein 335.7 mg/L (<10.0) H 12/18/16 03:58 - Physical Exam General Appearance: WD/WN, alert, no apparent distress, non-toxic Respiratory: lungs clear, normal breath sounds, No respiratory distress Cardiac/Chest: regular rate, rhythm, No tachycardia Extremities: non-tender, No normal inspection Skin: normal color, warm/dry, No rash Neuro/Psych: alert, normal mood/affect, No oriented x 3 ICD10 Worksheet Patient Problems: Problems Problem Status Onset Cellulitis Acute Mediastinitis Acute ASTRID (acute kidney injury) Acute Cellulitis Acute Breast cancer Chronic CAD, multiple vessel Chronic COPD (chronic obstructive pulmonary disease) Chronic Carotid artery disease Chronic FH: CABG (coronary artery bypass surgery) Chronic History of mastectomy Chronic History of nephrectomy, unilateral Chronic Hyperlipemia Chronic Hypertension 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
[2016-12-23 11:54] LABS: CK-MB INTERPRETATION NEGATIVE (NEGATIVE); CREATINE KINASE-MB FRACTION 0.36 ng/mL (0-3.19)
--- NOTE | 2016-12-23 12:41 | HOSPPROG ---
Hospitalist Progress Note Assessment/Plan: 71 y/o female w hx of CAD s/p CABG in August of 2016. She underwent sternal wound debridement and wound vac on 10/29/16. Had an infection of her left breast implant in addition. Today is my first day caring for her/ chart reviewed. recurrent sternal wound with osteo, surgery 12/21, POD #2 - hx MSSA bacteremia s/p iv abx x 6 weeks - Daptomycin per ID - appreciate ID and CT surgery CAD s/p CABG - asa/metop; no statin d/t allergy sepsis d/t sternal osteo - no e/o end organ damage septic physiology has resolved early thoracic aneurysm - outpatient f/u COPD/chronic hypoxic resp failure - 1L O2 hx breast cancer s/p XRT and chemo GERD - ppi dvt prophylaxis: LMWH dispo: cont inpt, PT/OT evals planned ID to set up outpatient daptomycin home with HH when cleared by surgery team Subjective: Pt feels well. No CP or SOB. No fevers. She is still quite weak. Objective: Vital Signs Temp Pulse Resp BP Pulse Ox 36.5 C 85 18 105/74 94 12/23/16 12:00 12/23/16 12:00 12/23/16 12:00 12/23/16 12:00 12/23/16 12:00 Laboratory Results 12/22/16 04:20 12/22/16 04:20 12/22/16 12/23/16 12/24/16 05:59 05:59 05:59 Intake Total 1470 1105 Output Total 215 43 950 Balance 1255 1062 -950 PT 13.5 SEC (12.0-15.0) 12/15/16 18:20 INR 1.04 (0.83-1.16) 12/15/16 18:20 - Physical Exam Constitutional: no apparent distress Eyes: PERRL Ears, Nose, Mouth, Throat: moist mucous membranes Cardiovascular: regular rate and rhythym, other (chest wall bandage with some dried blood, no active bleeding or purulence) Respiratory: no respiratory distress, clear to auscultation Gastrointestinal: normoactive bowel sounds, soft, non-tender abdomen Skin: warm Neurologic: AAOx3 Psychiatric: interacting appropriately ICD10 Worksheet Patient Problems: Problems Problem Status Onset Cellulitis Acute Mediastinitis Acute ASTRID (acute kidney injury) Acute Cellulitis Acute Breast cancer Chronic CAD, multiple vessel Chronic COPD (chronic obstructive pulmonary disease) Chronic Carotid artery disease Chronic FH: CABG (coronary artery bypass surgery) Chronic History of mastectomy Chronic History of nephrectomy, unilateral Chronic Hyperlipemia Chronic Hypertension 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
[2016-12-24] MEDS: HYDROmorphONE/DILAUDID 1 MG/ML SYR IVP PRN (04:40)
[2016-12-24 05:06] LABS: HEMATOCRIT 22.2 % (38.0-47.0); MEAN CELL HEMOGLOBIN 31.4 pg (27.9-34.1); MEAN CELL HEMOGLOBIN CONCENTR. 31.5 g/dL (32.4-36.7); MEAN CELL VOLUME 99.6 fL (81.5-99.8); RED BLOOD CELL COUNT 2.23 10^6/uL (4.18-5.33)
[2016-12-24] MEDS: HYDROmorphONE/DILAUDID 2 MG TAB PO PRN ×3 (07:25→16:38)
[2016-12-24] MEDS: FLUTICASONE/SALMETER 250/50MCG DISKUS IH SCH (08:38)
[2016-12-24] MEDS: SPIRIVA RESPIMAT IH SCH (08:39)
[2016-12-24] MEDS: PANTOPRAZOLE SODIUM 40 MG TAB PO SCH (09:54)
[2016-12-24] MEDS: VENLAFAXINE XR 37.5 MG CAP PO SCH (09:54)
[2016-12-24] MEDS: ASPIRIN EC 81 MG TAB PO SCH (09:54)
[2016-12-24] MEDS: SENNOSIDES/DOCUSATE SODIUM TAB PO SCH (09:55)
[2016-12-24] MEDS: DAPTOMYCIN IV SCH (09:55)
[2016-12-24] MEDS: CYANO/VITAMIN B12 1000 MCG TAB PO SCH (09:55)
[2016-12-24] MEDS: ANASTROZOLE 1 MG TAB PO SCH (09:55)
[2016-12-24] MEDS: NS IV SCH (09:55)
[2016-12-24] MEDS: METOPROLOL TARTRATE 25 MG TAB PO SCH (09:55)
[2016-12-24] MEDS: POLYETHYLENE GLYCOL 3350 17 GM PKT PO SCH (09:56)
[2016-12-24 10:56] VITALS: BP 108/61; PULSE 88; RESP 16; TEMP 98; O2SAT 95
--- NOTE | 2016-12-24 14:15 | PDIAF ---
- Diagnosis Diagnosis: operative infection - sternal osteo Code Status: Full Code - Medication Management Discharge Medications: Medications to Continue on Transfer Anastrozole [Arimidex 1 mg (*)] 1 mg PO DAILY 08/11/16 [Last Taken 10/26/16] Aspirin EC [Aspirin EC 81 mg (*)] 81 mg PO DAILY 08/11/16 [Last Taken 10/26/16] Omeprazole 40 mg PO DAILY 08/11/16 [Last Taken 10/26/16] Acetaminophen [Tylenol 325mg (*)] 650 mg PO Q4 PRN #0 tab 08/17/16 [Last Taken 10/26/16] Metoprolol Tartrate [Lopressor 25 mg (*)] 12.5 mg PO BID #30 tab 08/17/16 [Last Taken 10/26/16] Albuterol [Ventolin Hfa Inhaler] 2 puffs IH QID PRN #1 mdi 09/12/16 [Last Taken 10/26/16] traMADol [Ultram 50 mg (*)] 50 mg PO Q4HRS PRN #30 tab 10/13/16 [Last Taken ] Alirocumab [Praluent Syringe] 75 mg SQ Q14D 10/26/16 [Last Taken 12/13/16] Venlafaxine HCl [Venlafaxine HCl ER] 37.5 mg PO DAILY 10/26/16 [Last Taken 10/25] Fluticasone/Salmeter 250/50Mcg [Advair 250/50 (*)] 1 puffs IH BID 12/15/16 [ Last Taken Unknown] Cyanocobalamin [Vitamin B12 (*)] 1,000 mcg PO DAILY 12/16/16 [Last Taken Unknown ] Fluticasone Nasal [Flonase Nasal [place]] 1 sprays NASAL DAILY PRN 12/16/16 [Last Taken Unknown] Tiotropium [place] [Spiriva Respimat] 2 puffs IH DAILY 12/16/16 [Last Taken Unknown] Ferrous Sulfate [Iron] 325 mg PO DAILY #30 tablet 12/24/16 [Last Taken Unknown] HYDROmorphone HCL [Dilaudid 4 mg (*)] 4 mg PO Q6H PRN #30 tab 12/24/16 [Last Taken Unknown] Skilled Nursing Antibiotics: daptomycin 425mg IV q 24 hours Skilled Nursing Antibiotic Stop Date: 02/01/17 Discharge Medications: Refer to the Discharge Home Medication list for PRN reason. PICC Care - Routine: Yes - Orders Services needed: Registered Nurse Diet Recommendation: no restrictions on diet - Labs/Radiology CBC Date: 12/27/16 (weekly) CMP Date: 12/27/16 (weekly) CPK Date: 12/27/16 (twice weekly qMON TH) Call or Fax Lab and Imaging Results to: Dr. Charbel Silva - Follow Up Care Current Providers and Referrals: Minda Pena JR, MD [Medical Doctor] - 12/27/16 9:00 am Hollie Quiñones MD [Primary Care Provider] - As per Instructions Reji Smith MD [Medical Doctor] -
--- NOTE | 2016-12-24 14:32 | PDIAF ---
- Diagnosis Diagnosis: operative infection - sternal osteo Code Status: Full Code - Medication Management Discharge Medications: Medications to Continue on Transfer Anastrozole [Arimidex 1 mg (*)] 1 mg PO DAILY 08/11/16 [Last Taken 10/26/16] Aspirin EC [Aspirin EC 81 mg (*)] 81 mg PO DAILY 08/11/16 [Last Taken 10/26/16] Omeprazole 40 mg PO DAILY 08/11/16 [Last Taken 10/26/16] Acetaminophen [Tylenol 325mg (*)] 650 mg PO Q4 PRN #0 tab 08/17/16 [Last Taken 10/26/16] Metoprolol Tartrate [Lopressor 25 mg (*)] 12.5 mg PO BID #30 tab 08/17/16 [Last Taken 10/26/16] Albuterol [Ventolin Hfa Inhaler] 2 puffs IH QID PRN #1 mdi 09/12/16 [Last Taken 10/26/16] traMADol [Ultram 50 mg (*)] 50 mg PO Q4HRS PRN #30 tab 10/13/16 [Last Taken ] Alirocumab [Praluent Syringe] 75 mg SQ Q14D 10/26/16 [Last Taken 12/13/16] Venlafaxine HCl [Venlafaxine HCl ER] 37.5 mg PO DAILY 10/26/16 [Last Taken 10/25] Fluticasone/Salmeter 250/50Mcg [Advair 250/50 (*)] 1 puffs IH BID 12/15/16 [ Last Taken Unknown] Cyanocobalamin [Vitamin B12 (*)] 1,000 mcg PO DAILY 12/16/16 [Last Taken Unknown ] Fluticasone Nasal [Flonase Nasal [place]] 1 sprays NASAL DAILY PRN 12/16/16 [Last Taken Unknown] Tiotropium [place] [Spiriva Respimat] 2 puffs IH DAILY 12/16/16 [Last Taken Unknown] Ferrous Sulfate [Iron] 325 mg PO DAILY #30 tablet 12/24/16 [Last Taken Unknown] HYDROmorphone HCL [Dilaudid 4 mg (*)] 4 mg PO Q6H PRN #30 tab 12/24/16 [Last Taken Unknown] Skilled Nursing Antibiotics: daptomycin 425mg IV q 24 hours Skilled Nursing Antibiotic Stop Date: 02/01/17 Discharge Medications: Refer to the Discharge Home Medication list for PRN reason. PICC Care - Routine: Yes - Orders Services needed: Registered Nurse, Physical Therapy, Occupational Therapy Diet Recommendation: no restrictions on diet - Labs/Radiology CBC Date: 12/27/16 (weekly) CMP Date: 12/27/16 (weekly) CPK Date: 12/27/16 (twice weekly qMON THURS) Call or Fax Lab and Imaging Results to: Dr. Charbel Silva - Follow Up Care Current Providers and Referrals: Minda Pena JR, MD [Medical Doctor] - 12/27/16 9:00 am Hollie Quiñones MD [Primary Care Provider] - As per Instructions Reji Smith MD [Medical Doctor] -
--- NOTE | 2016-12-24 14:54 | PCMIDPN ---
Assessment/Plan: Assessment: Late postoperative infection of sternal wound status post CABG. MSSA in multiple cultures dating back to 10/26/2016. Patient underwent surgical debridement 3 days ago and had a rectus muscle flap placed over the debrided bone of the sternum. She is continuing to be covered with daptomycin. Presumed duration need for 6 weeks post debridement due to de facto sternal osteomyelitis. Plan: 1. Continue daptomycin. 2. Check CPK levels. 3. Cleared by surgery therefore patient can be discharged on IV daptomycin today. Follow-up in office with Dr. Silva in 7-10 days. 12/24/16 14:51 Subjective: Patient is resting in her hospital bed. She has no particular complaint today. Feels better today than she did yesterday. No fevers or chills. Objective: Daptomycin # 9 Vital Signs Temp Pulse Resp BP Pulse Ox 36.7 C 88 16 108/61 95 12/24/16 10:54 12/24/16 10:54 12/24/16 10:54 12/24/16 10:54 12/24/16 10:54 Laboratory Results 12/24/16 04:50 12/22/16 04:20 12/23/16 12/24/16 12/25/16 05:59 05:59 05:59 Intake Total 1105 1325 369 Output Total 43 1541 550 Balance 1062 -216 -181 ESR 56 MM/HR (0-30) H 12/17/16 03:58 C-Reactive Protein 335.7 mg/L (<10.0) H 12/18/16 03:58 - Physical Exam General Appearance: WD/WN, alert, no apparent distress, non-toxic Respiratory: lungs clear, normal breath sounds, No respiratory distress Cardiac/Chest: regular rate, rhythm, No tachycardia Skin: normal color, warm/dry, No rash Neuro/Psych: alert, normal mood/affect, oriented x 3 ICD10 Worksheet Patient Problems: Problems Problem Status Onset Cellulitis Acute Mediastinitis Acute ASTRID (acute kidney injury) Acute Cellulitis Acute Breast cancer Chronic CAD, multiple vessel Chronic COPD (chronic obstructive pulmonary disease) Chronic Carotid artery disease Chronic FH: CABG (coronary artery bypass surgery) Chronic History of mastectomy Chronic History of nephrectomy, unilateral Chronic Hyperlipemia Chronic Hypertension 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
--- NOTE | 2016-12-24 19:19 | GDS ---
[f rep st] DISCHARGE SUMMARY DATE OF ADMISSION: 12/15/2016 DISCHARGE DIAGNOSES: 1. Sternal osteomyelitis. 2. History of methicillin-sensitive Staphylococcus aureus bacteremia, status post 6 weeks of intravenous daptomycin. 3. Coronary artery disease, status post coronary artery bypass graft. 4. Breast implant infection, status post bilateral implant removal. 5. History of breast cancer, status post bilateral mastectomy. 6. Bilateral breast implants. 7. Chronic hypoxemic respiratory failure. 8. Chronic obstructive pulmonary disease. 9. Solitary kidney, status post nephrectomy. CONSULTANTS: 1. Dr. Charbel Silva, infectious disease. 2. Dr. Pena, plastic surgery. PROCEDURE: Sternal debridement and reconstruction with vertical rectus abdominis myocutaneous flap and abdominal wall closure performed by Dr. Pena , December 21, 2016. HISTORY: For details, please see dictated history and physical dated December 15, 2016. In brief, the patient is a 71-year-old female with history of coronary artery disease who underwent CABG in August 2016 which was complicated by a sternal wound infection requiring a wound VAC. She also has a history of breast cancer, status post bilateral mastectomy with bilateral breast implants. She underwent a removal of these implants and bilateral breast capsulectomy in November 2016 due to her postop sternal wound infection spreading into the breast implants. When the wound VAC was removed, on the day of arrival, there was concern for ongoing infection. She was admitted to the hospital for further management. HOSPITAL COURSE: The patient was admitted to the medical/surgical unit. She had recently been treated with long-term IV daptomycin for prior history of MSSA bacteremia in the setting of sternal infection. Imaging revealed retrosternal gas concerning for osteomyelitis. Infectious Disease was consulted. The patient was restarted on IV daptomycin. She was taken back to the operating room by her surgeon, Dr. Manav Pena where she underwent the procedure described above with debridement and reconstruction. Two MICHI drains were placed. Her postop course was uncomplicated. Despite her hemoglobin trending down, she has remained hemodynamically stable without significant output from her drains and no evidence of active bleeding. After discussions with her surgeon and Infectious Disease, the patient was deemed stable for discharge with close followup plans. DISPOSITION: The patient is discharged home with home health care services including RN, PT and OT. FOLLOWUP: 1. Follow up with Dr. Manav Pena, December 27 at 9 a.m. 2. Follow up with [facility]ious [facility], Dr. Charbel Silva. 3. Follow up with primary care provider, Dr. Hollie Quiñones. DISCHARGE MEDICATIONS: Please see [facility] for complete updated outpatient medication list. She will be continued on IV daptomycin 425 mg IV to 24 hours through February 01, 2017, through home infusion. She will continue all other outpatient medications as prescribed. /[id number]/MODL MTDD
[2016-12-27] MEDS ORDERED: ALIROCUMAB 75 MG SQ SCH (10:00)
--- NOTE | 2016-12-28 09:53 | PQFORM ---
PHYSICIAN QUERY FORM Needs Your Response This query form is being sent to you to assure this patient record is coded properly. Please respond to the question below: COFFEE MACHINE TECHNICIAN QUESTION: Dr Rodriguez Sepsis was documented through out this patients encounter however Sepsis was not documented on the discharge summary. Please clarify which diagnosis this patient had during this stay (12/15/16-12/24/16) Bacteremia __x___ Sepsis Other (please indicate ) Unable to determine Thank You Bhavani MCKEON Washing Machine Assembler INSTRUCTIONS FOR RESPONSE: Answer question by clicking on the "Edit Document" button. Move cursor to area below the stars. When complete, hit "Save." Click on the "Sign" button, then click "Sign" again. Type in your PIN and hit "Enter." MTDD
== END 2016-12-24 17:01 | disposition home health service (06) | DRG 939 ==
LOC: OBSVTOIN 19:29 → F2W 20:24
PROVIDERS: ADMIT Internal Medicine; ATTEND Internal Medicine
PROC: 02HV33Z Insertion of Infusion Device into Superior Vena Cava, Percutaneous Approach (ICD-10-PCS; 2016-12-21)
PROC: 0PB00ZZ Excision of Sternum, Open Approach (ICD-10-PCS; principal; 2016-12-21 14:30)
PROC: 0KXL0Z6 Transfer Left Abdomen Muscle, Transverse Rectus Abdominis Myocutaneous Flap, Open Approach (ICD-10-PCS; principal; 2016-12-21 14:30)
PROC: 0PU Upper Bones, Supplement (ICD-10-PCS; principal; 2016-12-21 14:30)
DX: T81.4XXD Infection following a procedure, subsequent encounter (principal); A41.9 Sepsis, unspecified organism; M86.18 Other acute osteomyelitis, other site; I71.2 Thoracic aortic aneurysm, without rupture; J44.9 Chronic obstructive pulmonary disease, unspecified; I25.10 Atherosclerotic heart disease of native coronary artery without angina pectoris; J96.11 Chronic respiratory failure with hypoxia; I10 Essential (primary) hypertension; K21.9 Gastro-esophageal reflux disease without esophagitis; Z87.891 Personal history of nicotine dependence; Z92.3 Personal history of irradiation; Z90.5 Acquired absence of kidney; Z95.1 Presence of aortocoronary bypass graft; Z86.14 Personal history of Methicillin resistant Staphylococcus aureus infection; Z85.3 Personal history of malignant neoplasm of breast
CPT/HCPCS: 96365; 97116-GP; 97162-GP; 97166-GO; 97535-GO; C1751; G8978-GP-CI; G8979-GP-CI; G8987-GO-CJ; G8988-GO-CI; G8989-GO-CI; J0171; J0878; J1170; J2250; J2405; J2704; J3010; J3370; Q4130; Q9967

== ENCOUNTER 2016-12-25 14:13 | Emergency (ER) | payer OTHER ==
[2016-12-25 14:28] VITALS: TEMP 98.2
[2016-12-25] MEDS ORDERED: ALTEPLASE 2 MG VIAL IVP ONE (15:17)
--- NOTE | 2016-12-25 15:26 | EDPHY ---
H & P Time Seen by Provider: 12/25/16 14:42 HPI/ROS: CHIEF COMPLAINT: PICC line not working HISTORY OF PRESENT ILLNESS: 71-year-old female presents to the emergency department complaining that her PICC line is not working. The patient was admitted to the hospital earlier this week and had reconstructive surgery. She is currently taking daptomycin daily with home health for staph infection. The patient states that she was discharged in the hospital yesterday and home health came to her house to infuse the daptomycin, however her PICC line was not working and she was sent to the emergency department for evaluation. Patient denies a fever. Denies chest pain or difficulty breathing. She states that her PICC line was working just fine yesterday. ROS: Denies chest pain, difficulty breathing, fever, chills, rash Past Medical/Surgical History: Coronary artery disease, CABG x4, GERD, breast cancer, bilateral mastectomy, COPD, chest wound currently on daptomycin daily for 2 weeks Social History: Smoking Status: Former smoker Physical Exam: Alert, no distress. 36.8, nontoxic appearing. The patient has indwelling PICC line to the right medial upper extremity. A peripheral IV was also placed by the nurse which is of the volar aspect of the right mid forearm. Patient has full range of motion of her right upper extremity. Her chest is clear to auscultation with no wheezing, rhonchi or rales. Heart regular rate rhythm without murmur. Patient has a large bulky dressing to the anterior aspect of her chest which was not removed and therefore her wound was not examined. Constitutional: Initial Vital Signs Temperature (C) 36.8 C 12/25/16 14:23 Heart Rate 93 12/25/16 14:23 Respiratory Rate 18 12/25/16 14:23 Blood Pressure 139/82 H 12/25/16 14:23 O2 Sat (%) 95 12/25/16 14:23 O2 Delivery Mode Nasal Cannula O2 (L/minute) 1 Allergies/Adverse Reactions: adhesive tape Allergy (Verified 12/25/16 14:21) cephalexin monohydrate [From Keflex] Allergy (Verified 12/25/16 14:21) Rash levofloxacin [From Levaquin] Allergy (Verified 12/25/16 14:21) Rash olmesartan Allergy (Verified 12/25/16 14:21) Rash olmesartan medoxomil [From Benicar] Allergy (Verified 12/25/16 14:21) Rash oxycodone HCl [From Percocet] Allergy (Verified 12/25/16 14:21) Vomiting Vrsrnji-Xhu-Bvm Reductase Inhibitor Allergy (Verified 12/25/16 14:21) Other-Enter Comments Home Medications: Medication Instructions Recorded Anastrozole [Arimidex 1 mg (*)] 1 mg PO DAILY 08/11/16 Aspirin EC [Aspirin EC 81 mg (*)] 81 mg PO DAILY 08/11/16 Omeprazole 40 mg PO DAILY 08/11/16 Acetaminophen [Tylenol 325mg (*)] 650 mg PO Q4 PRN #0 tab 08/17/16 Metoprolol Tartrate [Lopressor 25 12.5 mg PO BID #30 tab 08/17/16 mg (*)] Albuterol [Ventolin Hfa Inhaler] 2 puffs IH QID PRN #1 mdi 09/12/16 traMADol [Ultram 50 mg (*)] 50 mg PO Q4HRS PRN #30 tab 10/13/16 Alirocumab [Praluent Syringe] 75 mg SQ Q14D 10/26/16 Venlafaxine HCl [Venlafaxine HCl 37.5 mg PO DAILY 10/26/16 ER] Fluticasone/Salmeter 250/50Mcg 1 puffs IH BID 12/15/16 [Advair 250/50 (*)] Cyanocobalamin [Vitamin B12 (*)] 1,000 mcg PO DAILY 12/16/16 Fluticasone Nasal [Flonase Nasal 1 sprays NASAL DAILY PRN 12/16/16 [place]] Tiotropium [place] [Spiriva 2 puffs IH DAILY 12/16/16 Respimat] Ferrous Sulfate [Iron] 325 mg PO DAILY #30 tablet 12/24/16 HYDROmorphone HCL [Dilaudid 4 mg 4 mg PO Q6H PRN #30 tab 12/24/16 (*)] Daptomycin 12/25/16 MDM/Departure - MDM Medications Given: Discontinued Medications Alteplase, Recombinant (Cathflo Activase) 2 mg IVP EDNOW ONE Stop: 12/25/16 15:18 Last Admin: 12/25/16 15:45 Dose: 2 mg ED Course/Re-evaluation: The case was discussed with Dr. Iggy Copeland who recommended attempting to flush her PICC line. The patient is to require daptomycin daily for the next 13 days. Since a peripheral IV was placed by the nurse. The protocols were followed by the nurse for flushing her PICC line. This was successful. The patient will have her IV daptomycin infused by home health nurse robert. She is requesting to be discharged. - Depart Disposition: Home, Routine, Self-Care Clinical Impression: Occluded PICC line Qualifiers: Encounter type: initial encounter Qualified Code(s): T82.898A - Other specified complication of vascular prosthetic devices, implants and grafts, initial encounter Condition: Good Instructions: Peripherally Inserted Central Catheters and Midline Catheters (ED ) Additional Instructions: Continue IV antibiotic infusion. Return if you have any problems with your PICC line. Referrals: Hollie Quiñones MD [Primary Care Provider] - As per Instructions
[2016-12-25 16:46] VITALS: RESP 20
[2016-12-25 17:21] VITALS: BP 110/68; PULSE 76; O2SAT 97
== END 2016-12-25 17:21 | disposition home or self-care (01) ==
DX: T82.898A Other specified complication of vascular prosthetic devices, implants and grafts, initial encounter (principal); Z45.2 Encounter for adjustment and management of vascular access device; I25.810 Atherosclerosis of coronary artery bypass graft(s) without angina pectoris; J44.9 Chronic obstructive pulmonary disease, unspecified; Z85.3 Personal history of malignant neoplasm of breast; Z79.82 Long term (current) use of aspirin; Z87.891 Personal history of nicotine dependence; Y71.2 Prosthetic and other implants, materials and accessory cardiovascular devices associated with adverse incidents
CPT/HCPCS: 37195; 99284; J2997

== ENCOUNTER 2017-03-06 11:37 | Emergency (ER) | payer OTHER ==
--- NOTE | 2017-03-06 12:12 | CPEKG ---
Heart Rate: 93 RR Interval: 645 P-R Interval: 180 QRSD Interval: 78 QT Interval: 340 QTC Interval: 423 P [place]: 73 QRS [place]: 56 T Wave [place]: 44 EKG Severity - NORMAL ECG - EKG Impression: SINUS RHYTHM Electronically Signed By: Kb Sanchez 06-Mar-2017 15:01:38
[2017-03-06 12:49] LABS: % IMMATURE GRANULYOCYTES 0.5 % (0.0-1.1); ABSOLUTE IMMATURE GRANULOCYTES 0.06 10^3/uL (0.00-0.10); ADD DIFF? NO; ADD MORPH? NO; ADD SCAN? NO; ATYPICAL LYMPHOCYTE FLAG 0 (0-99); FRAGMENT RBC FLAG 10 (0-99); HEMATOCRIT 35.4 % (38.0-47.0); HEMOGLOBIN 11.4 g/dL (12.6-16.3); LEFT SHIFT FLG 0 (0-99); LIPEMIA HEMOLYSIS FLAG 80 (0-99); MEAN CELL HEMOGLOBIN CONCENTR. 32.2 g/dL (32.4-36.7); MEAN CELL VOLUME 102.6 fL (81.5-99.8); MEAN PLATELET VOLUME 10.7 fL (8.7-11.7); PLATELET CLUMPS FLAG 0 (0-99); PLATELET COUNT 200 10^3/uL (150-400); RED BLOOD CELL COUNT 3.45 10^6/uL (4.18-5.33); RED CELL DISTRIBUTION WIDTH 17.8 % (11.5-15.2)
[2017-03-06 12:55] LABS: ANION GAP 12 mEq/L (8-16); CALCIUM 9.7 mg/dL (8.5-10.4); CARBON DIOXIDE 20 mEq/l (22-31); CHLORIDE 102 mEq/L (97-110); CREATININE 1.1 mg/dL (0.6-1.0); GLOMERULAR FILTRATION RATE 49; GLUCOSE 112 mg/dL (70-100); POTASSIUM 4.3 mEq/L (3.5-5.2); SODIUM 134 mEq/L (134-144)
[2017-03-06 13:06] LABS: TROPONIN I 0.017 ng/mL (0-0.034)
[2017-03-06] MEDS ORDERED: IOPAMIDOL (ISOVUE 370) 100 ML BTL IV ONE (13:50)
--- NOTE | 2017-03-06 14:32 | EDPHY ---
H & P Stated Complaint: sob/r cp - Personal History Current Tetanus/Diphtheria Vaccine: Unsure - Medical/Surgical History Hx Asthma: No Hx Chronic Respiratory Disease: No Hx Diabetes: No Hx Cardiac Disease: Yes Hx Renal Disease: No Hx Cirrhosis: No Hx Alcoholism: No Hx HIV/AIDS: No Hx Splenectomy or Spleen Trauma: No Other PMH: breast cancer, DOUBLE mastectomy, implants, COPD, CABGx4, cad, GERD , HOT FLASHES, STERNAL WOUND INFECTION, RECONSTRUCTIVE SURGERY12/2016 - Social History Smoking Status: Former smoker Time Seen by Provider: 03/06/17 12:34 HPI/ROS: Chief Complaint: Shortness of breath, chest pain HPI: 71-year-old woman with significant past medical history for chest wall infection status post coronary artery bypass graft last July. Patient required skin grafting and removal of her prior mastectomy implants. Patient has been doing well until yesterday afternoon about 40 afternoon she does developed pain in her right back radiating her chest. She took the tramadol with no significant relief. This is also associated shortness of breath and pain with deep inspiration. Denies any leg pain or swelling. No fevers or chills. She did have a fall last Tuesday but did not sustain any injuries. No abdominal pain. No nausea or vomiting. No lightheadedness or syncope. Does have some dyspnea on exertion. ROS: 10 point Review of Systems is negative except as noted in the HPI. PMH: Breast cancer, status post mastectomies, CABG, chest wall infection, nephrectomy, appendectomy Medications: Metoprolol, amlodipine Allergies: Benicar, Percocet Social History: No smoking, occasional alcohol, no recreational drug use Family History: non-contributory Physical Exam: Gen: Awake, Alert, No Distress HEENT: Nose: no rhinorrhea Eyes: PERRLA, EOMI Mouth: Moist mucosa Neck: Supple, no JVD Chest: nontender, lungs clear to auscultation, well-healed skin grafting and post mastectomy scars with no erythema tenderness or discharge Heart: S1, S2 normal, no murmur Abd: Soft, non-tender, no guarding Back: no CVA tenderness, no midline tenderness Ext: no edema, non-tender Skin: no rash Neuro: CN II-XII intact, Sensation grossly intact, Strength 5/5 in bilateral upper and lower extremities (Kb Sanchez) Constitutional: Initial Vital Signs Temperature (C) 37 C 03/06/17 11:41 Heart Rate 96 03/06/17 11:41 Respiratory Rate 22 H 03/06/17 11:41 Blood Pressure 151/81 H 03/06/17 11:41 O2 Sat (%) 96 03/06/17 11:41 O2 Delivery Mode Nasal Cannula O2 (L/minute) 3 Allergies/Adverse Reactions: adhesive tape Allergy (Verified 03/06/17 11:40) cephalexin monohydrate [From Keflex] Allergy (Verified 03/06/17 11:40) Rash levofloxacin [From Levaquin] Allergy (Verified 03/06/17 11:40) Rash olmesartan Allergy (Verified 03/06/17 11:40) Rash olmesartan medoxomil [From Benicar] Allergy (Verified 03/06/17 11:40) Rash oxycodone HCl [From Percocet] Allergy (Verified 03/06/17 11:40) Vomiting Jthwnja-Oog-Pyp Reductase Inhibitor Allergy (Verified 03/06/17 11:40) Other-Enter Comments Home Medications: Medication Instructions Recorded Anastrozole [Arimidex 1 mg (*)] 1 mg PO DAILY 08/11/16 Aspirin EC [Aspirin EC 81 mg (*)] 81 mg PO DAILY 08/11/16 Omeprazole 40 mg PO DAILY 08/11/16 Acetaminophen [Tylenol 325mg (*)] 650 mg PO Q4 PRN #0 tab 08/17/16 Metoprolol Tartrate [Lopressor 25 12.5 mg PO BID #30 tab 08/17/16 mg (*)] Albuterol [Ventolin Hfa Inhaler] 2 puffs IH QID PRN #1 mdi 09/12/16 traMADol [Ultram 50 mg (*)] 50 mg PO Q4HRS PRN #30 tab 10/13/16 Alirocumab [Praluent Syringe] 75 mg SQ Q14D 10/26/16 Venlafaxine HCl [Venlafaxine HCl 37.5 mg PO DAILY 10/26/16 ER] Fluticasone/Salmeter 250/50Mcg 1 puffs IH BID 12/15/16 [Advair 250/50 (*)] Cyanocobalamin [Vitamin B12 (*)] 1,000 mcg PO DAILY 04/06/17 Fluticasone Nasal [Flonase Nasal 1 sprays NASAL DAILY PRN 12/16/16 [place]] Tiotropium [place] [Spiriva 2 puffs IH DAILY 12/16/16 Respimat] Ferrous Sulfate [Iron] 325 mg PO DAILY #30 tablet 12/24/16 HYDROmorphone HCL [Dilaudid 4 mg 4 mg PO Q6H PRN #30 tab 12/24/16 (*)] Daptomycin 12/25/16 Amlodipine Besylate 03/06/17 Medical Decision Making - Diagnostics EKG Interpretation: ECG time 12 11 sinus rhythm with a rate of 93, normal axis, normal intervals, no acute ST or T-wave changes. Impression: Normal ECG. (Kb Sanchez) Imaging Results: Imaging Impressions Chest/Thorax CTA 03/06/17 12:45 Impression: 1. There is no CT evidence of pulmonary artery thromboemboli. 2. Postsurgical change following prior CABG and left atrial appendage ligature placement. 3. 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 4. Extensive atherosclerotic calcification associated with the aorta with stable descending thoracic aortic aneurysm, similar to 12/15/2016. 5. Mild subsegmental atelectatic changes. Findings were discussed with Fe Lewis MD at 15:19, on 03/06/2017. ED Course/Re-evaluation: 71-year-old woman presenting with pleuritic right-sided chest pain and shortness of breath and some hypoxemia. Patient has risk factors for DVT T and PE. Will check blood work and CT scan of her chest. [address] Lewis pending CTA scan of the chest. ECG is negative. Troponin is negative. No other significant electrolyte abnormalities. (Kb Sanchez) Other Provider: I assumed care of this patient from Dr. Sanchez at 3:15 p.m.. At that time the results for CT angiogram are pending. I received report from Dr. Kb Basurto. He does not see a pulmonary embolus. There is no evidence of pneumonia. He does not think that there is persistent infection. I examined the patient at 3:30 p.m.. At that time showed a heart rate of 116, respiratory rate of 25, blood pressure 1 our goal 149/122. Vital signs will be repeated. She is continuing with right-sided pleuritic chest pain. Her lungs are clear. She is tachycardic on exam with no murmur, rub, or gallop. She tried 1 tramadol last night. I am going to give her tramadol here and some fluids to see if her pain decreases. She has not been febrile, nor has she had a cough. There is no pneumonia on CT angiogram. She was re-examined at 4:45 p.m.. At that time her heart rate was 105 to 108. Respiratory rate was in the low 20s, somewhat higher when she was speaking. She is oxygenating at 97% on 2 L nasal cannula oxygen. Her blood pressure was 146/94. She has received 500 mL of normal saline. After taking a tramadol her pain is much improved. She would like to return home. She understands that she has a rapid heart rate and is comfortable returning home with this. She would like to contact her research technologist, Dr. Carmichael, and her infectious disease specialist, Dr. Silva, tomorrow. We discussed the danger signs that should prompt her to return and she assures me that she will come back to the emergency room if she is worse in any way. (Fe Lewis) - Data Points Laboratory Results: Laboratory Results 03/06/17 12:25 03/06/17 12:25 03/06/17 03/06/17 12:25 12:25 WBC 12.62 10^3/uL H 10^3/uL (3.80-9.50) RBC 3.45 10^6/uL L 10^6/uL (4.18-5.33) Hgb 11.4 g/dL L g/dL (12.6-16.3) Hct 35.4 % L % (38.0-47.0) MCV 102.6 fL H fL (81.5-99.8) MCH 33.0 pg pg (27.9-34.1) MCHC 32.2 g/dL L g/dL (32.4-36.7) RDW 17.8 % H % (11.5-15.2) Plt Count 200 10^3/uL 10^3/uL (150-400) MPV 10.7 fL fL (8.7-11.7) Neut % (Auto) 78.9 % H % (39.3-74.2) Lymph % (Auto) 9.8 % L % (15.0-45.0) [place] % (Auto) 10.5 % % (4.5-13.0) Eos % (Auto) 0.1 % L % (0.6-7.6) Baso % (Auto) 0.2 % L % (0.3-1.7) Nucleat RBC Rel Count 0.0 % % (0.0-0.2) Absolute Neuts (auto) 9.95 10^3/uL H 10^3/uL (1.70-6.50) Absolute Lymphs (auto) 1.24 10^3/uL 10^3/uL (1.00-3.00) Absolute Monos (auto) 1.33 10^3/uL H 10^3/uL (0.30-0.80) Absolute Eos (auto) 0.01 10^3/uL L 10^3/uL (0.03-0.40) Absolute Basos (auto) 0.03 10^3/uL 10^3/uL (0.02-0.10) Absolute Nucleated RBC 0.00 10^3/uL 10^3/uL (0-0.01) Immature Gran % 0.5 % % (0.0-1.1) Immature Gran # 0.06 10^3/uL 10^3/uL (0.00-0.10) Sodium 134 mEq/L mEq/L (134-144) Potassium 4.3 mEq/L mEq/L (3.5-5.2) Chloride 102 mEq/L mEq/L (97-110) Carbon Dioxide 20 mEq/l L mEq/l (22-31) Anion Gap 12 mEq/L mEq/L (8-16) BUN 28 mg/dL H mg/dL (7-23) Creatinine 1.1 mg/dL H mg/dL (0.6-1.0) Estimated GFR 49 Glucose 112 mg/dL H mg/dL (70-100) Calcium 9.7 mg/dL mg/dL (8.5-10.4) Troponin I 0.017 ng/mL ng/mL (0-0.034) Medications Given: Discontinued Medications Sodium Chloride (Ns) 1,000 mls @ 0 mls/hr IV ONCE ONE; Wide Open PRN Reason: Protocol Stop: 03/06/17 15:42 Last Admin: 03/06/17 15:50 Dose: 1,000 mls Tramadol HCl (Ultram) 50 mg PO EDNOW ONE Stop: 03/06/17 15:42 Last Admin: 03/06/17 15:51 Dose: 50 mg Departure - Departure Disposition: Home, Routine, Self-Care Clinical Impression: Chest pain made worse by breathing, Tachycardia with heart rate 100-120 beats per minute Condition: Good Instructions: Noncardiac Chest Pain (ED), Tachycardia (ED) Additional Instructions: As we discussed, you have a rapid heart rate today in the emergency department. It is not clear why. No evidence of pulmonary embolus (blood clot in your lung) on your CAT scan. Referrals: Hollie Quiñones MD [Primary Care Provider] - As per Instructions Prem Carmichael MD [Medical Doctor] - As per Instructions Charbel Silva MD [Medical Doctor] - As per Instructions
[2017-03-06] MEDS ORDERED: traMADol 50 MG TAB PO ONE (15:41)
[2017-03-06] MEDS ORDERED: NS 1,000 ML IV ONE (15:41)
[2017-03-06 17:28] VITALS: BP 148/76; PULSE 103; RESP 16; TEMP 97.9; O2SAT 92
== END 2017-03-06 17:28 | disposition home or self-care (01) ==
DX: R07.1 Chest pain on breathing (principal); R00.0 Tachycardia, unspecified; J44.9 Chronic obstructive pulmonary disease, unspecified; I25.810 Atherosclerosis of coronary artery bypass graft(s) without angina pectoris; Z79.82 Long term (current) use of aspirin; Z85.3 Personal history of malignant neoplasm of breast; Z87.891 Personal history of nicotine dependence
CPT/HCPCS: 71275; 93005; Q9967

== ENCOUNTER → 2017-07-21 | Outpatient (CLI) | payer OTHER | LOC: FIMAGING 10:01 | PROVIDERS: ATTEND Surgery | DX: K46.9 Unspecified abdominal hernia without obstruction or gangrene (principal); I71.4 Abdominal aortic aneurysm, without rupture; K57.30 Diverticulosis of large intestine without perforation or abscess without bleeding; Z90.49 Acquired absence of other specified parts of digestive tract; Z90.710 Acquired absence of both cervix and uterus ==

== ENCOUNTER 2017-08-19 11:29 | Observation (INO) | payer OTHER ==
[~2017-08-19 11:29] MED LIST: VANCOMYCIN HCL/NORMAL SALINE 250 ML IV SCH
--- NOTE | 2017-08-19 12:04 | PDHPUP ---
History & Physical Update H&P update statement: This history and physical update is based on an assessment of the patient which was completed after admission or registration (within 24 hours), but prior to the surgery/procedure. H&P update: H&P reviewed & patient examined, no change in patient's condition since H&P completed
[2017-08-19] MEDS ORDERED: VANCOMYCIN HCL/NORMAL SALINE 250 ML IV ONE (12:27)
[2017-08-19] MEDS ORDERED: LIDOCAINE 1% 2 ML INJ ONE (13:34)
[2017-08-19] MEDS ORDERED: NS 1,000 ML IV ONE (13:51)
[2017-08-19] MEDS ORDERED: LR 1,000 ML IV ONE (14:00)
[2017-08-19] MEDS ORDERED: BUPIVACAINE/EPI 0.5% 30 ML SDV ONE (15:48)
[2017-08-19] MEDS ORDERED: MIDAZOLAM 2 MG/2 ML VIAL IVP ONE (15:49)
--- NOTE | 2017-08-19 15:50 | PDANEPAE ---
ANE History of Present Illness ventral hernia ANE Past Medical History - Cardiovascular History Hx Hypertension: Yes Hx Arrhythmias: No Hx Chest Pain: No Hx Coronary Artery / Peripheral Vascular Disease: Yes Hx CHF / Valvular Disease: No Hx Palpitations: No Cardiovascular History Comment: cabg 4v with claus 08/12/16. htn. cad - Pulmonary History Hx COPD: Yes Hx Asthma/Reactive Airway Disease: No Hx Recent Upper Respiratory Infection: No Hx Oxygen in Use at Home: Yes Hx Sleep Apnea: Yes Sleep Apnea Screening Result - Last Documented: Positive Pulmonary History Comment: kali positive uses cpap- instructed pt to bring to hospital - Neurologic History Hx Cerebrovascular Accident: No Hx Seizures: No Hx Dementia: No - Endocrine History Hx Diabetes: No - Renal History Hx Renal Disorders: Yes Renal History Comment: hx of nephrectomy - Liver History Hx Hepatic Disorders: No - Neurological & Psychiatric Hx Hx Neurological and Psychiatric Disorders: No - Cancer History Hx Cancer: Yes Cancer History Comment: breast cancer- bilateral mastectomy- chemo and radiation and on trial drug - Congenital Disorder History Hx Congenital Disorders: No - GI History Hx Gastrointestinal Disorders: Yes Gastrointestinal History Comment: reflux. ibs - Other Health History Other Health History: partial upper and lower plates. wears reading glasses - Chronic Pain History Chronic Pain: No - Surgical History Prior Surgeries: 12/21/16 sternal debridement and rectus flap closure with Jean. charly 2016. 08/11/16 cabg 4v. bilateral mastectomy. appy. tonsillectomy. right nephrectomy d/t blood clot in opening of kidney. hysterectomy. ANE Review of Systems Review of Systems: - Exercise capacity METS (RN): 3 METS ANE Patient History - Allergies Allergies/Adverse Reactions: adhesive tape Allergy (Verified 08/05/17 12:11) tears skin off cephalexin monohydrate [From Keflex] Allergy (Verified 08/05/17 12:11) Rash levofloxacin [From Levaquin] Allergy (Verified 08/05/17 12:11) Rash olmesartan Allergy (Verified 08/05/17 12:11) Rash olmesartan medoxomil [From Benicar] Allergy (Verified 08/05/17 12:11) Rash oxycodone HCl [From Percocet] Allergy (Verified 08/05/17 12:11) Rash [id number]-[id number] Reductase Inhibitor Allergy (Verified 08/05/17 12:11) Other-Enter Comments - Home Medications Home medications: home medication list seen and reviewed Home Medications: Anastrozole [Arimidex 1 mg (*)] 1 mg PO DAILY 08/11/16 [Last Taken 08/18/17 06: 00] Aspirin EC [Aspirin EC 81 mg (*)] 81 mg PO DAILY 08/11/16 [Last Taken 08/14/17] Omeprazole 40 mg PO DAILY 08/11/16 [Last Taken 2 Weeks Ago ~08/05/17] Fluticasone/Salmeter 250/50Mcg [Advair 250/50 (*)] 1 puffs IH BID 12/15/16 [ Last Taken 08/18/17 20:00] Tiotropium [place] [Spiriva Respimat] 1 puffs IH BID 12/16/16 [Last Taken 20:00] amLODIPine BESYLATE [Norvasc 5 mg (*)] 5 mg PO HS 03/06/17 [Last Taken 08/18/17 20:00] Acetaminophen [Tylenol 325mg (*)] 325 mg PO DAILY PRN 08/03/17 [Last Taken 08/18 20:00] Alirocumab [Praluent Pen] 75 mg SQ Q14D 08/03/17 [Last Taken 08/15/17] Doxycycline Hyclate [Vibramycin 100 MG (*)] 100 mg PO BID 08/03/17 [Last Taken 08/18/17 20:00] Fluticasone Nasal [Flonase Nasal Home (RX)] 1 sprays NASAL DAILY 08/03/17 [ Last Taken 08/18/17 08:00] Metoprolol Tartrate [Lopressor 25 mg (*)] 12.5 mg PO BID 08/03/17 [Last Taken 04:00] Venlafaxine Xr [Effexor Xr 75MG (*)] 75 mg PO DAILY 08/03/17 [Last Taken 06:00] - NPO status NPO Since - Liquids (Date): 08/19/17 NPO Since - Liquids (Time): 04:00 NPO Since - Solids (Date): 08/18/17 NPO Since - Solids (Time): 18:30 - Smoking Hx Smoking Status: Former smoker - Family Anes Hx Family Hx Anesthesia Complications: mother and brother have issues with morphine ANE Labs/Vital Signs - Vital Signs Vital Signs: reviewed preoperatively; see RN documention for details Blood Pressure: 169/85 Heart Rate: 76 Respiratory Rate: 15 O2 Sat (%): 94 Height: 157.48 cm Weight: 69.4 kg ANE Physical Exam - Airway Neck exam: FROM Mallampati Score: Class 2 Mouth exam: dentures - Pulmonary Pulmonary: no respiratory distress - Cardiovascular Cardiovascular: regular rate and rhythym - ASA Status ASA Status: III ANE Anesthesia Plan Anesthesia Plan: general endotracheal anesthesia, spinal
[2017-08-19] MEDS ORDERED: ROCURONIUM 50 MG/5 ML VIAL ONE (15:56)
[2017-08-19] MEDS ORDERED: fentaNYL 100 MCG/2 ML INJ ONE ×3 (15:56→19:08)
[2017-08-19] MEDS ORDERED: PROPOFOL 200 MG/20 ML VIAL ONE (15:57)
[2017-08-19] MEDS ORDERED: morphINE PF 5 MG/10 ML INJ ONE (15:57)
[2017-08-19] MEDS ORDERED: PROMETHAZINE HCL 25 MG/ML INJ IVP PRN (17:47)
[2017-08-19] MEDS ORDERED: fentaNYL 100 MCG/2 ML INJ IVP PRN (17:47)
[2017-08-19] MEDS ORDERED: ONDANSETRON 4 MG/2 ML VIAL IVP PRN ×3 (17:47→18:48)
[2017-08-19] MEDS ORDERED: NALOXONE HCL 0.4 MG/ML INJ IVP PRN ×2 (17:47→17:52)
[2017-08-19] MEDS ORDERED: LABETALOL HCL 5 MG/ML 20 ML MDV IVP PRN (17:47)
[2017-08-19] MEDS ORDERED: ONDANSETRON 4 MG/2 ML VIAL ONE (18:10)
[2017-08-19] MEDS ORDERED: KETOROLAC 30 MG/1 ML SDV ONE (18:10)
[2017-08-19] MEDS ORDERED: DEXAMETHASONE 4 MG/ML VIAL ONE (18:10)
[2017-08-19] MEDS ORDERED: PHENYLEPHRINE HCL 100 MCG/ML SYR ONE (18:10)
[2017-08-19] MEDS ORDERED: epHEDrine SULFATE 10 MG/ML SYR ONE (18:10)
--- NOTE | 2017-08-19 18:23 | POSTANESTH ---
Post Anesthetic Evaluation Cardiovascular Status: Normal, Stable Respiratory Status: Normal, Stable Level of Consciousness/Mental Status: Can Participate in Eval Pain Control: Adequate, Prn Tx Ordered Nausea/Vomiting Control: Adequate, Prn Tx Ordered Complications Possibly Related to Anesthesia: None Noted
[2017-08-19] MEDS ORDERED: HYDROmorphONE/DILAUDID 1 MG/ML INJ IVP PRN (18:48)
[2017-08-19] MEDS ORDERED: ACETAMINOPHEN 325 MG TAB PO PRN ×2 (18:48→18:52)
--- NOTE | 2017-08-19 18:48 | POSTOPPROG ---
Post Op Note Date of Operation: 08/19/17 Surgeon: Reji Palma Anesthesiologist: Anish Malhotra Anesthesia: GET(General Endotracheal), Spinal Pre-op Diagnosis: Ventral hernia Post-op Diagnosis: Same Procedure: Complex ventral hernia repair with [id number] Symbotex mesh Inf/Abcess present in the surg proc area at time of surgery?: No EBL: Minimal Drains: Logan Alvarez
[2017-08-19] MEDS ORDERED: diphenhydrAMINE 50 MG CAP PO PRN (18:52)
[2017-08-19] MEDS ORDERED: HYDROmorphONE/DILAUDID 1 MG/ML INJ ONE (19:09)
[2017-08-19] MEDS ORDERED: HYDROmorphone HCL/NS/PF 0.4 MG/2 ML SYR IVP PRN (20:30)
[2017-08-19] MEDS: LR 1,000 ML IV SCH (20:45)
[2017-08-19] MEDS: HYDROCODONE/APAP 5/325 TAB PO PRN (20:50)
[2017-08-19] MEDS: DOXYCYCLINE HYCLATE 100 MG CAP/TAB PO SCH (20:51)
[2017-08-19] MEDS: METOPROLOL TARTRATE 25 MG TAB PO SCH (20:51)
[2017-08-19] MEDS: FLUTICASONE/SALMETER 250/50MCG DISKUS IH SCH (20:59)
[2017-08-19] MEDS ORDERED: amLODIPine BESYLATE 5 MG TAB PO SCH (21:00)
[2017-08-19] MEDS: Tiotropium Bromide [Spiriva Respimat] IH SCH (21:04)
[2017-08-19] MEDS: KETOROLAC 15 MG/1 ML SDV IVP SCH (23:25)
[2017-08-20] MEDS: diphenhydrAMINE 25 MG CAP PO PRN ×3 (00:32→14:55)
[2017-08-20 03:12] VITALS: RESP 18
[2017-08-20] MEDS: KETOROLAC 15 MG/1 ML SDV IVP SCH ×2 (05:46→11:37)
--- NOTE | 2017-08-20 06:32 | GOP ---
[f rep st] OPERATIVE REPORT DATE OF OPERATION: 08/19/2017 SURGEON: Reji Palma MD ANESTHESIA: General with spinal. ANESTHESIOLOGIST: Dr. Malhotra. PREOPERATIVE DIAGNOSIS: Ventral hernia. POSTOPERATIVE DIAGNOSIS: Ventral hernia. PROCEDURE PERFORMED: 1. Complex ventral herniorrhaphy with partial component separation with 20 x 25 cm Symbotex mesh. 2. Dermolipectomy. FINDINGS: See below. INDICATIONS: 71-year-old female with a complicated medical history involving a sternal wound infection post CABG. She required sternal debridement with vertical rectus abdominis musculature muscle flap. Her rectus defect was previously closed primarily with the use of biologic mesh. She has developed a large symptomatic recurrence. She is undergoing surgical repair at this time. Risks and benefits were explained of bleeding, infection and recurrence, as well as bowel injury and others. All questions were answered. She desires to proceed. DESCRIPTION OF PROCEDURE: Spinal anesthesia was placed followed by induction of general anesthesia. The abdomen was reentered through the prior right lower quadrant vertical incision. The subcutaneous tissues were divided down to the hernia sac, which was entered, allowing exposure of the abdominal cavity. Visceral and omental adhesions were all widely lysed from the underside of the abdominal wall, way out beneath the level of the umbilicus, to the left lower quadrant, deep into the pelvis, as well as into the right paracolic gutters. There was a small umbilical hernia as well. The umbilical skin was elevated off the abdominal fascia and this defect closed primarily with a running Vicryl suture. There was satisfactory muscle/fascia remaining to just a few centimeters away from the ASIS and pubic. The transversus abdominis muscle on the right abdomen was partially away from the oblique musculature allowing for additional musculature advancement. The rectus muscle had previously been taken so no retrorectus exposure was further offered. A 20 x 25 cm Covidien Parietex mesh was inserted into the abdominal cavity. Using multiple interrupted sutures placed far laterally, the mesh was parachuted up into the abdominal wall. The musculature was able to be reapproximated near completely using multiple interrupted 0 Vicryl sutures with acceptable tension noted upon the wound closure. The mesh was fully able to be incorporated into this closure. Notably, the mesh was continued across the umbilicus causing additional coverage internally for this repair as well. The attenuated right lower quadrant skin was completely excised back to healthy appearing tissue with good bleeding. A 10 flat Logan-Alvarez drain was placed through a right upper quadrant stab incision. The wound was closed in layers with absorbable suture followed by skin sherie. Additional local anesthetic was placed in TAP fashion. The patient was extubated in the operating room, taken to recovery uneventfully. /[id number]/MODL MTDD
[2017-08-20] MEDS: LR 1,000 ML IV SCH (08:41)
[2017-08-20] MEDS: METOPROLOL TARTRATE 25 MG TAB PO SCH (08:44)
[2017-08-20] MEDS: DOXYCYCLINE HYCLATE 100 MG CAP/TAB PO SCH (08:45)
[2017-08-20] MEDS: FLUTICASONE/SALMETER 250/50MCG DISKUS IH SCH (08:47)
[2017-08-20] MEDS: Tiotropium Bromide [Spiriva Respimat] IH SCH (08:48)
[2017-08-20] MEDS ORDERED: VENLAFAXINE XR 75 MG CAP PO SCH (09:00)
[2017-08-20] MEDS ORDERED: ANASTROZOLE 1 MG TAB PO SCH (09:00)
[2017-08-20] MEDS ORDERED: PANTOPRAZOLE SODIUM 40 MG TAB PO SCH (09:00)
[2017-08-20] MEDS ORDERED: ASPIRIN EC 81 MG TAB PO SCH (09:00)
[2017-08-20] MEDS ORDERED: FLUTICASONE NASAL 120 SPRAYS/16 GM MDI NS SCH (09:00)
[2017-08-20] MEDS ORDERED: VANCOMYCIN HCL/NORMAL SALINE 250 ML IV ONE (09:00)
[2017-08-20] MEDS: HYDROCODONE/APAP 5/325 TAB PO PRN ×2 (09:10→14:54)
[2017-08-20] MEDS ORDERED: traMADol 50 MG TAB PO PRN (10:13)
--- NOTE | 2017-08-20 10:17 | SOAPPROG ---
SOAP Progress Note Assessment/Plan: Assessment:c/o itching only. min pain. no nausea or vomiting. avss. comfortable. abd soft, dressings dry. cleve serosang. doing well. herring out. home later today. drain care. outpt f/u when output < 30cc/24 hours. Plan: 08/20/17 10:16 Objective: Vital Signs Temp Pulse Resp BP Pulse Ox 36.3 C 74 18 133/65 H 92 08/20/17 07:41 08/20/17 08:44 08/20/17 07:41 08/20/17 08:44 08/20/17 07:41 08/19/17 08/20/17 08/21/17 05:59 05:59 05:59 Intake Total 3027 Output Total 530 Balance 2497 ICD10 Worksheet Patient Problems: Problems Problem Status Onset Ventral hernia Acute ASTRID (acute kidney injury) Acute Cellulitis Acute Cellulitis Acute Mediastinitis Acute Breast cancer Chronic CAD, multiple vessel Chronic COPD (chronic obstructive pulmonary disease) Chronic Carotid artery disease Chronic FH: CABG (coronary artery bypass surgery) Chronic History of mastectomy Chronic History of nephrectomy, unilateral Chronic Hyperlipemia Chronic Hypertension 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
[2017-08-20 11:37] VITALS: BP 107/69; PULSE 80; TEMP 98.5; O2SAT 94
--- NOTE | 2017-08-20 18:02 | ASDISCHSUM ---
Discharge Information Plan Status:Home with No Needs Medically Cleared to Leave: Discharge Date:08/20/2017 03:05 PM D/C Disposition:Home, Routine, Self-Care ADT D/C Disposition:Home, Routine, Self-Care Projected Discharge Date:08/20/2017 03:05 PM Transportation at D/C: Discharge Delay Reason: Follow-Up Date:08/20/2017 03:05 PM Discharge Slot: Final Diagnosis: Placement Information Patient Contact Information Contact Name:ROQUE Relationship:Daughter Address: City: [facility] Phone: [facility] Code: Email: Financial Information Financial Class: Primary Plan Desc:MEDICARE INPATIENT Primary Plan Number:[id number] Secondary Plan Desc:[employer]IG[employer] Secondary Plan Number:[id number] Assessment Information Intervention Information
[2017-08-29] MEDS ORDERED: ALIROCUMAB 75 MG SQ SCH (09:00)
== END 2017-08-20 15:05 | disposition home or self-care (01) ==
LOC: INTOOBSV 12:53 → F3E 12:53
PROVIDERS: ADMIT Surgery; ATTEND Surgery
PROC: 0WUF0JZ Supplement Abdominal Wall with Synthetic Substitute, Open Approach (ICD-10-PCS; principal; 2017-08-19 15:30)
DX: K43.9 Ventral hernia without obstruction or gangrene (principal); Z85.3 Personal history of malignant neoplasm of breast; I25.10 Atherosclerotic heart disease of native coronary artery without angina pectoris; I10 Essential (primary) hypertension; E78.00 Pure hypercholesterolemia, unspecified; I71.4 Abdominal aortic aneurysm, without rupture; Z95.1 Presence of aortocoronary bypass graft
CPT/HCPCS: J1100; J1170; J1885; J2250; J2274; J2370; J2405; J2704; J3010; J3370

== ENCOUNTER → 2018-03-22 | Outpatient (CLI) | payer OTHER | LOC: FIMAGING 09:46 | PROVIDERS: ATTEND Internal Medicine Hematology & Oncology | DX: Z13.820 Encounter for screening for osteoporosis (principal); M81.0 Age-related osteoporosis without current pathological fracture; Z78.0 Asymptomatic menopausal state; Z85.3 Personal history of malignant neoplasm of breast ==

== ENCOUNTER → 2018-07-13 | Outpatient (CLI) | payer OTHER | LOC: BHFA 10:00 | PROVIDERS: ATTEND Internal Medicine Interventional Cardiology | DX: I72.9 Aneurysm of unspecified site (principal) ==